=== PATIENT | male | born 1945 | race Caucasian/White ===

== ENCOUNTER 2016-09-21 12:59 | Emergency (ER) | payer MEDICARE, OTHER ==
[2016-09-21 13:35] VITALS: BP 120/68
--- NOTE | 2016-09-21 14:04 | UC ---
Knee Pain HPI - HPI Summary HPI Summary: patient was walking and twisted right knee last night. it is swollen and painful. he is able to weight bear. patient feels like it may give out on him, especially on the stairs. wore his neoprene brace in to the visit today. - History of Current Complaint Chief Complaint: UCLowerExtremity Stated Complaint: RIGHT KNEE PAIN Time Seen by Provider: 09/21/16 13:47 Hx Obtained From: Patient Onset/Duration: Sudden Onset, Lasting Hours Severity Initially: Moderate Severity Currently: Moderate Character: Aching, Burning Aggravating Factor(s): Movement, Prolonged Standing, Stairs Alleviating Factor(s): Rest Associated Signs And Symptoms: Positive: Swelling Able to Bear Weight: Yes - Allergies/Home Medications Allergies/Adverse Reactions: Allergies Allergy/AdvReac Type Severity Reaction Status Date / Time Niacin [From Niaspan] Allergy Unknown Unknown Verified 03/15/15 19:20 Reaction Details Sertraline [From Zoloft] Allergy Unknown Unknown Verified 03/15/15 19:20 Reaction Details BEE STINGS Allergy Severe Swelling Uncoded 03/15/15 19:20 TRAZADONE Allergy Unknown Unknown Uncoded 03/15/15 19:20 Reaction Details Home Medications: Home Medications Amlodipine Besylate [Norvasc 5 mg tab] 5 mg PO DAILY 09/21/16 [History Confirmed 09/21/16] Cholecalciferol [Vitamin D] 1,000 unit PO QPM 09/21/16 [History Confirmed ] Lisinopril [Zestril 5 MG-] 10 mg PO DAILY 09/21/16 [History Confirmed 09/21/16] Zinc [Elite Zinc] 15 mg PO QAM 09/21/16 [History Confirmed 09/21/16] PMH/Surg Hx/FS Hx/Imm Hx Previously Healthy: Yes Endocrine History Of: Reports: Diabetes, Thyroid Disease Cardiovascular History Of: Reports: Cardiac Disorders - CARDIAC CATHS, Hypertension Denies: Congestive Heart Failure Respiratory History Of: Denies: COPD, Asthma GI/ History Of: Reports: Gastroesophageal Reflux Denies: Ulcer, Renal Disease - Surgical History Surgical History: Yes Surgery Procedure, Year, and Place: hernia repair, cardiac; abdominal hernia. RIGHT SHOULDER Surgeries then REPLACEMNT 12/2012; - Family History Known Family History: Positive: Cardiac Disease, Hypertension - Social History Alcohol Use: Rare Substance Use Type: None Smoking Status (MU): Former Smoker Type: Smokeless Tobacco Amount Used/How Often: 1 can q 3 days Length of Time of Smoking/Using Tobacco: 48 yrs Have You Smoked in the Last Year: Yes - Immunization History Most Recent Influenza Vaccination: 2007 Most Recent Tetanus Shot: UTD Review of Systems Constitutional: Negative Skin: Negative Eyes: Negative ENT: Negative Respiratory: Negative Cardiovascular: Negative Gastrointestinal: Negative Genitourinary: Dysuria Motor: Negative Neurovascular: Negative Musculoskeletal: Arthralgia, Edema, Myalgia Neurological: Negative Psychological: Negative All Other Systems Reviewed And Are Negative: Yes Physical Exam Triage Information Reviewed: Yes Appearance: Well-Appearing, Pain Distress, Obese Vital Signs: Initial Vital Signs Temp 98 F 09/21/16 13:25 Pulse 60 09/21/16 13:25 Resp 18 09/21/16 13:25 BP 120/68 09/21/16 13:25 Vital Signs Reviewed: Yes Eye Exam: Normal Eyes: Positive: Conjunctiva Clear ENT Exam: Normal ENT: Positive: Normal ENT inspection, Hearing grossly normal, Pharynx normal, TMs normal Dental Exam: Normal Neck exam: Normal Neck: Positive: Supple, Nontender, No Lymphadenopathy Respiratory Exam: Normal Respiratory: Positive: Chest non-tender, Lungs clear, Normal breath sounds Cardiovascular Exam: Normal Cardiovascular: Positive: RRR, No Murmur, Pulses Normal Abdominal Exam: Normal Abdomen Description: Positive: Nontender, No Organomegaly, Soft Bowel Sounds: Positive: Present Musculoskeletal: Positive: Strength Intact, ROM Intact, Edema @ - right knee Neurological Exam: Normal Neurological: Positive: Alert, Muscle Tone Normal Psychological Exam: Normal Skin Exam: Normal Knee Pain Course/Dx - Course Course Of Treatment: hx obtained, exam performed, medication reviewed, xray obtained neg for effusion or acute injury. offered crutches and walker for support, Recommend tylenol and RICE therapy follow up with preimary MD if symptoms persist. - Differential Dx/Diagnosis Differential Diagnosis/HQI/PQRI: Dislocation, Fracture (Closed), Patellofemoral Syndrome, Sprain, Strain Provider Diagnoses: hamstring strain Discharge - Discharge Plan Condition: Stable Disposition: HOME Patient Education Materials: Muscle Strain (ED) Additional Instructions: Rest, Ice your knee, Compress it with the neoprene sleeve and elevated it at rest. Tylenol as needed for pain. if not improving over the week, follow up with your medical provider.
--- NOTE | 2016-09-21 14:18 | RAD ---
HISTORY: Twisting injury, swelling COMPARISONS: None VIEWS: 4, Frontal, lateral, axial, and oblique views of the right knee FINDINGS: BONE DENSITY: Normal. BONES: There is no displaced fracture. JOINTS: There is no arthropathy. There is no suprapatellar joint effusion or lipohemarthrosis. ALIGNMENT: There is no dislocation. SOFT TISSUES: Unremarkable. OTHER FINDINGS: None. IMPRESSION: NO ACUTE OSSEOUS INJURY. IF SYMPTOMS PERSIST, RECOMMEND REPEAT IMAGING.
== END 2016-09-21 14:40 | disposition home or self-care (01) ==
LOC: UCCORT 12:59
DX: S76.111A Strain of right quadriceps muscle, fascia and tendon, initial encounter (principal); X50.1XXA Overexertion from prolonged static or awkward postures, initial encounter; Y93.01 Activity, walking, marching and hiking; Y92.9 Unspecified place or not applicable; I10 Essential (primary) hypertension; E66.9 Obesity, unspecified; Z87.891 Personal history of nicotine dependence
CPT/HCPCS: 99212; G0463

== ENCOUNTER 2016-09-24 16:09 | Emergency (ER) | payer MEDICARE, OTHER ==
--- NOTE | 2016-09-24 18:16 | ED ---
Lower Extremity - HPI Summary HPI Summary: 71M presents with right knee pain for a week. Was seen at urgent care and had normal xray at the beginning of this week and told has sprain. initially pain while walking believes possible twisted knee but did not fall. Has been able to walk on the knee but states has notice some clicking and popping when walks. States that knee occasionally gives out. Pain is located on medial aspect of knee. He has been taking ibuprofen for the pain. He states that he has been using a brace on the knee and that it has helped. He has not been using his crutches. - History of Current Complaint Chief Complaint: EDExtremityLower Stated Complaint: RT KNEE PAIN Time Seen by Provider: 09/24/16 17:31 Pain Intensity: 7 - Allergies/Home Medications Allergies/Adverse Reactions: Allergies Allergy/AdvReac Type Severity Reaction Status Date / Time Niacin [From Niaspan] Allergy Unknown Unknown Verified 03/15/15 19:20 Reaction Details Sertraline [From Zoloft] Allergy Unknown Unknown Verified 03/15/15 19:20 Reaction Details BEE STINGS Allergy Severe Swelling Uncoded 03/15/15 19:20 TRAZADONE Allergy Unknown Unknown Uncoded 03/15/15 19:20 Reaction Details PMH/Surg Hx/FS Hx/Imm Hx Endocrine/Hematology History: Reports: Hx Diabetes, Hx Thyroid Disease Denies: Hx Systemic Lupus Erythematosus, Hx Sickle Cell Disease Cardiovascular History: Reports: Hx Aneurysm - Thoracic aortic aneurysm, states is stable, Hx Hypercholesterolemia, Hx Hypertension Denies: Hx Congestive Heart Failure Respiratory History: Reports: Hx Sleep Apnea Denies: Hx Asthma, Hx Chronic Obstructive Pulmonary Disease (COPD), Other Respiratory Problems/Disorders GI History: Reports: Hx Gastroesophageal Reflux Disease Denies: Hx Ulcer History: Denies: Hx Dialysis, Hx Renal Disease, Other Problems/Disorders Musculoskeletal History: Reports: Hx Arthritis, Hx Tendonitis, Other Musculoskeletal History - Bilateral rotator cuff problems Denies: Hx Rheumatoid Arthritis Sensory History: Reports: Hx Contacts or Glasses - GLASSES, Hx Hearing Aid - BILATERAL EARS Opthamlomology History: Reports: Hx Contacts or Glasses - GLASSES Neurological History: Denies: Other Neuro Impairments/Disorders Psychiatric History: Reports: Hx Post Traumatic Stress Disorder - Cancer History Hx Chemotherapy: No - Surgical History Surgery Procedure, Year, and Place: hernia repair, cardiac; abdominal hernia. RIGHT SHOULDER Surgeries then REPLACEMNT 12/2012; Hx Anesthesia Reactions: No Infectious Disease History: No Infectious Disease History: Denies: Hx Hepatitis, Hx Human Immunodeficiency Virus (HIV), Traveled Outside the [place] in Last 30 Days - Family History Known Family History: Positive: Cardiac Disease, Hypertension - Social History Alcohol Use: Rare Substance Use Type: Reports: None Smoking Status (MU): Former Smoker Type: Smokeless Tobacco Amount Used/How Often: 1 can q 3 days Length of Time of Smoking/Using Tobacco: 48 yrs Have You Smoked in the Last Year: Yes Review of Systems Negative: Fever Negative: Chest Pain Negative: Shortness Of Breath Positive: Myalgia - right knee pain All Other Systems Reviewed And Are Negative: Yes Physical Exam Triage Information Reviewed: Yes Vital Signs On Initial Exam: Initial Vitals Temp Pulse Resp BP Pulse Ox 97.3 F 65 16 136/72 100 09/24/16 16:11 09/24/16 16:11 09/24/16 16:11 09/24/16 16:11 09/24/16 16:11 Vital Signs Reviewed: Yes Appearance: Positive: Well-Appearing Skin: Positive: Warm, Dry Head/Face: Positive: Normal Head/Face Inspection Eyes: Positive: Normal, Conjunctiva Clear Respiratory/Lung Sounds: Positive: Clear to Auscultation, Breath Sounds Present Cardiovascular: Positive: Normal, RRR Musculoskeletal: Positive: Limited @ - right knee due to pain, Other - good pulses, neg anterior drawer, unable to full perform Anna due to patient discomfort, tender over medial aspect of knee, mild edema with ballotment test Diagnostics - Vital Signs Vital Signs Temp Pulse Resp BP Pulse Ox 09/24/16 16:11 97.3 F 65 16 136/72 100 - Laboratory Lab Statement: Any lab studies that have been ordered have been reviewed, and results considered in the medical decision making process. Lower Extremity Course/Dx - Course Course Of Treatment: 71M presents with right knee pain for a week. states that though injured in when walking. has been taking ibuprofen but states has not been getting any better and has been notice any increase in clicking in the joint. has pain over medial aspect of knee and is tender there. postive ballotment. on exam unable to full complete anna due to limitation with pain. will have follow up with ortho for potential menscial injury. told to use cane to get around and keep brace that already has on area. patient understands and agrees with plan - Diagnoses Differential Diagnosis/HQI/PQRI: Positive: Fracture (Closed), Sprain, Strain Provider Diagnoses: Right knee pain Discharge - Discharge Plan Condition: Good Disposition: HOME Patient Education Materials: Knee Pain (ED) Referrals: bAa Avitia MD [Primary Care Provider] - Maxine Dumont MD [Medical Doctor] - Additional Instructions: Place ice, rest, elevate Keep brace on area Use cane to get around Use tyenlol or ibuprofen every 6 hours for pain Follow up with ortho Return to ED if develop any new or worsening symptoms
[2016-09-24 18:48] VITALS: BP 113/75
== END 2016-09-24 18:47 | disposition home or self-care (01) ==
LOC: ED 16:09
DX: M25.561 Pain in right knee (principal)
CPT/HCPCS: 99281

== ENCOUNTER 2016-10-02 11:42 | Emergency (ER) | payer MEDICARE, OTHER ==
[2016-10-02 13:04] VITALS: BP 121/55
--- NOTE | 2016-10-02 14:00 | UC ---
Respiratory Complaint HPI - HPI Summary HPI Summary: Cough w/ white sputum, chest congestion, & wheezing x1 week. Wheezing in the chest that is worsening over the past 4 days. denies chest pain . [ End ] - History of Current Complaint Chief Complaint: UCRespiratory Stated Complaint: COUGH Time Seen by Provider: 10/02/16 13:40 Hx Obtained From: Patient Onset/Duration: Gradual Onset Timing: Constant Severity Initially: Mild Severity Currently: Moderate Character: Cough: Nonproductive Aggravating Factors: Nothing Alleviating Factors: Nothing Associated Signs And Symptoms: Positive: Wheezing, URI, Nasal Congestion, Sinus Discomfort - Risk Factors Pulmonary Embolism Risk Factors: Negative Cardiac Risk Factors: Negative Pseudomonas Risk Factors: Negative - Allergies/Home Medications Allergies/Adverse Reactions: Allergies Allergy/AdvReac Type Severity Reaction Status Date / Time Niacin [From Niaspan] Allergy Unknown Unknown Verified 10/02/16 12:56 Reaction Details Sertraline [From Zoloft] Allergy Unknown Unknown Verified 10/02/16 12:56 Reaction Details BEE STINGS Allergy Severe Swelling Uncoded 10/02/16 12:56 TRAZADONE Allergy Unknown Unknown Uncoded 10/02/16 12:56 Reaction Details Home Medications: Home Medications Chlorpheniramine-Phenylephrine [Coricidin D Cold/Flu/Sinu 2-5-325 mg] 1 tab PO Q6H PRN 10/02/16 [History Confirmed 10/02/16] guaiFENesin ER TAB [Mucinex*] 600 mg PO BID 10/02/16 [History Confirmed 10/02/16 ] PMH/Surg Hx/FS Hx/Imm Hx Previously Healthy: Yes Endocrine History Of: Reports: Diabetes, Thyroid Disease Cardiovascular History Of: Reports: Cardiac Disorders - CARDIAC CATHS, Hypertension Denies: Congestive Heart Failure Respiratory History Of: Denies: COPD, Asthma GI/ History Of: Reports: Gastroesophageal Reflux Denies: Ulcer, Renal Disease Cancer History Of: Denies: Lung Cancer - Surgical History Surgical History: Yes Surgery Procedure, Year, and Place: hernia repair, cardiac; abdominal hernia. 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 Lives: With Family Alcohol Use: Rare Substance Use Type: None Smoking Status (MU): Former Smoker Type: Smokeless Tobacco Amount Used/How Often: 1 can q 3 days Length of Time of Smoking/Using Tobacco: 48 yrs Have You Smoked in the Last Year: Yes - Immunization History Most Recent Influenza Vaccination: 2007 Most Recent Tetanus Shot: UTD Review of Systems Constitutional: Fatigue Skin: Negative Eyes: Negative ENT: Negative Respiratory: Shortness Of Breath, Cough Cardiovascular: Negative Gastrointestinal: Negative Genitourinary: Negative Motor: Negative Neurovascular: Negative Musculoskeletal: Negative Neurological: Negative Psychological: Negative All Other Systems Reviewed And Are Negative: Yes Physical Exam Triage Information Reviewed: Yes Appearance: Well-Appearing, No Pain Distress, Well-Nourished Vital Signs: Initial Vital Signs Temp 98.0 F 10/02/16 12:59 Pulse 60 10/02/16 12:59 Resp 18 10/02/16 12:59 BP 121/55 10/02/16 12:59 Pulse Ox 99 10/02/16 12:59 Eye Exam: Normal ENT Exam: Normal Dental Exam: Normal Neck exam: Normal Neck: Positive: 1 Respiratory Exam: Normal Respiratory: Positive: Chest non-tender, Wheezing - Left lower lung with exhalation Cardiovascular Exam: Normal Musculoskeletal Exam: Normal Neurological Exam: Normal Psychological Exam: Normal Skin Exam: Normal UC Diagnostic Evaluation - Laboratory O2 Sat by Pulse Oximetry: 99 Respiratory Course/Dx - Course Course Of Treatment: Bronchitis, concern if not treated may become pneumonia. start augmentin, aware of SE with this medication . - Differential Dx/Diagnosis Differential Diagnosis/HQI/PQRI: Bronchitis, Influenza, Lower Resp Infection, Sinusitis Provider Diagnoses: Bronchitis Discharge - Discharge Plan Condition: Good Disposition: HOME Prescriptions: Albuterol Sulfate [Proair Respiclick] 108 mcg IN Q6HR PRN #1 aer PRN Reason: Wheezing Amoxicillin/Clavulanate TAB* [Augmentin TAB 875*] 875 mg PO BID #20 tab Benzonatate [Benzonatate 200 MG CAP] 200 mg PO TID PRN #20 cap PRN Reason: Cough Patient Education Materials: Acute Bronchitis (ED) Referrals: Aba Avitia MD [Primary Care Provider] - 3 Days
== END 2016-10-02 14:11 | disposition home or self-care (01) ==
LOC: UCCORT 11:42
DX: J40 Bronchitis, not specified as acute or chronic (principal); E07.9 Disorder of thyroid, unspecified; I10 Essential (primary) hypertension; Z95.5 Presence of coronary angioplasty implant and graft; K21.9 Gastro-esophageal reflux disease without esophagitis; Z96.611 Presence of right artificial shoulder joint; Z87.891 Personal history of nicotine dependence
CPT/HCPCS: 99212; G0463

== ENCOUNTER 2016-11-03 05:55 | Day surgery (SDC) | payer MEDICARE, OTHER ==
--- NOTE | 2016-10-31 20:36 | HP ---
HISTORY AND PHYSICAL: DATE OF ADMISSION/SURGERY: 11/03/16 ATTENDING PHYSICIAN: Dr. Bailey (DICTATED BY JAY CANCINO) PROCEDURE: Right knee arthroscopy with partial meniscectomy, possible chondroplasty, possible synovectomy. CHIEF COMPLAINT: Right knee pain. HISTORY OF PRESENT ILLNESS: Mr. Talavera is a 71-year-old gentleman with complaints of right knee pain which he injured over a month ago. He has failed conservative management and an MRI of the right knee showed a tear of the posterior horn and body of the medial meniscus, and he has elected to proceed with right knee arthroscopy which is scheduled for 11/03/16. PAST MEDICAL HISTORY: Thoracic aortic aneurysm, high cholesterol, hypertension , diabetes, hypothyroidism and sleep apnea. PAST SURGICAL HISTORY: Right carpal tunnel release, bilateral rotator cuff repairs, hernia repair, right total shoulder and heart catheterization. CURRENT MEDICATIONS: 1. Lisinopril. 2. Omeprazole. 3. Amlodipine. 4. Losartan. 5. Prazosin. 6. Tamoxifen. 7. Atorvastatin. 8. Levothyroxine. 9. Januvia. 10. Zinc. 11. Metformin. 12. Vitamin C. 13. Multivitamin. 14. Vitamin D3. ALLERGIES: To TRAZODONE, NIASPAN, ZOLOFT and BEES. FAMILY HISTORY: Heart disease, diabetes. prostate and colon cancer. SOCIAL HISTORY: This 71-year-old gentleman lives with his . He chews tobacco today. He uses occasional alcohol. REVIEW OF SYSTEMS: A complete 14-point review of systems was reviewed with the patient and was positive for hypothyroidism and diabetes. Negative for anesthesia problems, history of DVT, PE, hepatitis C, HIV or bleeding disorders. PHYSICAL EXAMINATION GENERAL: He is a 71-year-old obese male. He is in no acute distress. VITAL SIGNS: He stands 6 feet tall, weighs 245 pounds. Blood pressure 130/68, his heart rate is 64. HEENT: Normocephalic, atraumatic. NECK: Supple. No palpable lymph nodes. PULMONARY: Lungs are clear to auscultation bilaterally. CARDIO: Regular rate and rhythm. ABDOMEN: Soft, nontender, nondistended. MUSCULOSKELETAL: Right lower extremity skin is intact. No open wounds or abrasions. There is a mild effusion. There is some tenderness over the medial joint line, positive Apley's, positive Kimberly's, negative Sohan's. No varus or valgus instability. 10 to 100 degrees flexion distally. He is neurovascularly intact. ASSESSMENT AND PLAN: Mr. Talavera is a 71-year-old gentleman with complaints of right knee pain secondary to a medial meniscus tear. He has elected to proceed with the right knee arthroscopy with partial medial meniscectomy, possible chondroplasty, possible synovectomy. The surgery is scheduled for 11/03/[address] Bailey. He will follow up with Dr. Bailey 10 to 14 days after the surgery. JAY CANCINO [id number]/[facility] #: [id number] MTDD
[2016-11-03] MEDS ORDERED: Buffered Lidocaine 1% SYR 3ML* 3 ML/SYR SYRINGE INTRADERM ONE (06:00)
[2016-11-03] MEDS ORDERED: Famotidine IV* 10 MG/ML 2 ML (20 mg) IV ONE (06:00)
[2016-11-03] MEDS ORDERED: ceFAZolin 2 GM PREMIX(*) 2 GM/50 ML BAG IVPB ONE (06:08)
[2016-11-03] MEDS ORDERED: Famotidine IV* 10 MG/ML 2 ML (20 mg) ONE (06:08)
[2016-11-03] MEDS ORDERED: methylPREDNISolone ACETATE 80* 80 MG/ML 1 ML VIAL ONE (06:57)
[2016-11-03] MEDS ORDERED: EPINEPHrine AMP 1 MG/ML ONE ×2 (06:57)
[2016-11-03] MEDS ORDERED: Bupivacaine 0.25% SDV* 30 ML ONE (06:57)
[2016-11-03] MEDS ORDERED: Bupivacaine 0.5% SDV PF* 30 ML VIAL ONE (06:59)
[2016-11-03] MEDS ORDERED: fentaNYL* 50 MCG/ML 2 ML VIAL (100 MCG VIAL) ONE (07:16)
[2016-11-03] MEDS ORDERED: Midazolam* 1 MG/ML 5 ML VIAL (5 MG) ONE (07:17)
[2016-11-03] MEDS ORDERED: Chloroprocaine 2%* 20 ML VIAL ONE (07:17)
[2016-11-03] MEDS ORDERED: Midazolam* 1 MG/ML 2 ML VIAL (2 MG) ONE (07:57)
[2016-11-03] MEDS ORDERED: Phenylephrine IV* 40 MCG/ML 10 ML SYRINGE ONE (08:01)
[2016-11-03] MEDS ORDERED: oxyCODONE/Acetamin 5/325 MG* TAB PO PRN (08:52)
[2016-11-03] MEDS ORDERED: Ondansetron INJ* 2 MG/ML VIAL IV PRN (08:52)
[2016-11-03] MEDS ORDERED: HYDROcodone/ACETAMIN 5-325 MG* 1 TAB PO PRN (08:52)
[2016-11-03] MEDS ORDERED: Ketorolac INJ* 30 MG/ML 1 ML VIAL IV PRN (08:52)
[2016-11-03] MEDS ORDERED: fentaNYL* 50 MCG/ML 2 ML VIAL (100 MCG VIAL) IV PRN (08:52)
[2016-11-03] MEDS ORDERED: Ketorolac INJ* 30 MG/ML 1 ML VIAL ONE (09:03)
[2016-11-03 10:07] VITALS: BP 123/70
--- NOTE | 2016-11-04 08:28 | OP ---
DATE OF OPERATION: 11/03/16 [facility] DATE OF : 47 SURGEON: Tamela Bailey MD WIRE HARNESS ASSEMBLER: JAY Arcos. This assistant pastry chef was utilized throughout all portions of the procedure. ANESTHESIOLOGIST: Dr. Efrain Jimenez ANESTHESIA: Spinal. PRE-OP DIAGNOSIS: Right knee medial meniscal tear, osteoarthritis. POST-OP DIAGNOSES: Right knee medial meniscal tear, lateral meniscal tear, severe arthritis of the medial compartment. OPERATIVE PROCEDURES: Right knee arthroscopy with partial medial meniscectomy, partial lateral meniscectomy, medial compartment chondroplasty. COMPLICATIONS: None. ESTIMATED BLOOD LOSS: Less than 25 cc. SPECIMENS: None. BRIEF HISTORY/INDICATION: Mr. Talavera is a 71-year-old gentleman with one year of increasingly severe right knee pain. Plain radiograph showed some mild-to- moderate degenerative changes in the knee joint. His physical exam and history were consistent with medial meniscal tear, which confirmed on MRI. The patient failed conservative treatment and wished to proceed with right knee arthroscopy. He understood the risks of surgery included, but were not limited to bleeding, infection, damage to nearby structures, continued pain, need for further surgery, stroke, heart attack, blood clot and . He wished to proceed. INTRAOPERATIVE FINDINGS: Intraoperatively, the patient was noted to have complex type tear of the posterior one half of the medial meniscus. This involved the white-white and white-red zones. Also had a radial type tear of the lateral meniscus in the mid portion. The patient was noted to have grade 3 and 4 Outerbridge cartilage changes in both patellofemoral and medial compartments. There was exposed subchondral bone and cartilage flapping along the medial femoral condyle. DESCRIPTION OF PROCEDURE: Mr. Talavera was identified in the preanesthesia unit. His right lower extremity was marked as the correct operative site. Informed consent was signed and placed in the chart. The patient was taken to the operating room and placed under spinal anesthesia. The right lower extremity was prepped and draped in the usual sterile fashion. Preop time-out was made to correctly identify the patient's side and site. Appropriate perioperative antibiotics were given within 1 hour of incision. A standard anterolateral portal incision was made with a 15-blade and carried down to the capsule. Trocar was introduced. As soon as the light and water sources were turned on, there was immediate visualization of the suprapatellar pouch. A tour of the knee joint was performed. Suprapatellar pouch had no obvious abnormality other than some small cartilage fragments loose in the joint fluid. Patellofemoral compartment showed grade 3 and 4 Outerbridge cartilage changes with exposed subchondral bone along the medial and lateral facets. Medial gutter showed no obvious loose bodies or plica. The medial compartment showed an obvious complex type tear of the posterior 50% of the medial meniscus. There was grade 3 and 4 Outerbridge cartilage changes in the medial compartment with cartilage flapping and an exposed subchondral bone along the medial femoral condyle. ACL and PCL appeared to be intact. The knee was placed in the [id number] position. Lateral compartment showed a radial type tear in the midportion of the lateral meniscus as well as some mild degenerative changes. Lateral gutter showed no obvious abnormality. Under direct visualization, a medial portal incision was made. Probe was introduced and a second tour of the knee joint was performed. No additional findings were noted. The shaver and radiofrequency ablation wand were used to excise some synovitis from the anterior joint line, which helped with visualization significantly. A straight biter and shaver were used to perform partial medial meniscectomy until a smooth border was obtained in the white-red zone of the medial meniscus. Next, radiofrequency ablation wand was used to smooth the cartilage flapping along the medial femoral condyle. The knee was placed in the [id number] position. The straight bitter and shaver were used to perform partial lateral meniscectomy. A smooth border was obtained in a white-red zone. Probing of both menisci showed no further tearing or displaced fragments. The knee was copiously irrigated and any small cartilage fragments were removed from the joint fluid. All instruments were carefully removed. Incisions were closed using 3-0 nylon suture. Intraarticular injection of 80 mg Depo-Medrol and 6 cc 0.25% Marcaine was placed in the knee joint. Incisions were covered with Xeroform, 4x4s, and Webril. Berto wrap and cold pack were placed over this. The patient's anesthesia was reversed without difficulty. He was taken to the PACU in stable condition. Intended weightbearing will be weightbearing as tolerated. Intended DVT prophylaxis will be aspirin. [id number]/[facility] #: [id number] [facility]
== END 2016-11-03 09:59 | disposition home or self-care (01) ==
LOC: OR 05:55
PROVIDERS: ATTEND Orthopaedic Surgery Adult Reconstructive Orthopaedic Surgery
DX: M23.203 Derangement of unspecified medial meniscus due to old tear or injury, right knee (principal); M23.200 Derangement of unspecified lateral meniscus due to old tear or injury, right knee; M13.861 Other specified arthritis, right knee; E11.9 Type 2 diabetes mellitus without complications; Z79.84 Long term (current) use of oral hypoglycemic drugs; I10 Essential (primary) hypertension; E03.9 Hypothyroidism, unspecified; I45.10 Unspecified right bundle-branch block; I71.2 Thoracic aortic aneurysm, without rupture; G47.33 Obstructive sleep apnea (adult) (pediatric)
CPT/HCPCS: J0171; J0690; J1040; J1885; J2250; J2400; J3010

== ENCOUNTER 2017-02-28 19:38 | Emergency (ER) | payer MEDICARE, OTHER ==
[2017-02-28 19:52] VITALS: BP 143/72
[2017-02-28] MEDS ORDERED: traMADol TAB* 50 MG PO ONE ×2 (20:54→21:23)
[2017-02-28] MEDS ORDERED: Ketorolac INJ* 60 MG/2 ML VIAL IM ONE (20:54)
[2017-02-28] MEDS ORDERED: Cephalexin CAP* 500 MG PO ONE (21:20)
--- NOTE | 2017-03-05 12:03 | ED ---
Megan Carter Alfonso, scribed for Rajan Cross MD on 02/28/17 at 2052 . Lower Extremity - HPI Summary HPI Summary: This patient is a 71 year old M presenting to [facility] accompanied by with a chief complaint of right knee pain since one week ago. He states It looks like it has fluid in it. The patient rates the pain 6/10 in severity. Symptoms aggravated by standing. Symptoms alleviated by nothing. Patient reports knee swelling and insomnia. Patient denies fever, chills, and diaphoresis. Patient denies recent trauma. He had surgery on Nov [address] Bailey at [facility] for a torn meniscus. He reports an appointment with Dr. Bailey (surgeon) for 03/08/17. PMHx includes DM2, HTN, and HLD. - History of Current Complaint Chief Complaint: EDExtremityLower Stated Complaint: RT KNEE PAIN Time Seen by Provider: 02/28/17 20:42 Hx Obtained From: Patient Onset of Pain: Prior to Arrival Onset/Duration: Weeks - 1 Severity Initially: Moderate Severity Currently: Moderate Pain Intensity: 6 Pain Scale Used: 0-10 Numeric Timing: Constant Location: Is Discrete @ - right knee Associated Signs And Symptoms: Positive: Swelling, Knee Pain. Negative: Fever Aggravating Factor(s): Standing Alleviating Factor(s): Nothing Able to Bear Weight: Yes - Allergies/Home Medications Allergies/Adverse Reactions: Allergies Allergy/AdvReac Type Severity Reaction Status Date / Time Niacin [From Niaspan] Allergy Unknown Unknown Verified 02/28/17 19:52 Reaction Details Sertraline [From Zoloft] Allergy Unknown DOUBLE Verified 02/28/17 19:52 VISION BEE STINGS Allergy Severe Swelling Uncoded 02/28/17 19:52 TRAZADONE Allergy Unknown Unknown Uncoded 02/28/17 19:52 Reaction Details PMH/Surg Hx/FS Hx/Imm Hx Endocrine/Hematology History: Reports: Hx Diabetes - TYPE II controlled with medication, Hx Thyroid Disease - HYPOTHYROID Denies: Hx Systemic Lupus Erythematosus, Hx Sickle Cell Disease Cardiovascular History: Reports: Hx Aneurysm - Thoracic aortic aneurysm, states is stable, Hx Hypercholesterolemia, Hx Hypertension - controlled with medication , Other Cardiovascular Problems/Disorders - aortic aneurysm 2010 Denies: Hx Congestive Heart Failure, Hx Pacemaker/ICD Respiratory History: Reports: Hx Sleep Apnea Denies: Hx Asthma, Hx Chronic Obstructive Pulmonary Disease (COPD), Hx Lung Cancer, Other Respiratory Problems/Disorders GI History: Reports: Hx Gastroesophageal Reflux Disease, Hx Hiatal Hernia - RESOLVED Denies: Hx Ulcer History: Denies: Hx Dialysis, Hx Renal Disease, Other Problems/Disorders Musculoskeletal History: Reports: Hx Arthritis - OSTEO GENERALIZED, Hx Tendonitis, Other Musculoskeletal History - Bilateral rotator cuff problems Denies: Hx Rheumatoid Arthritis Sensory History: Reports: Hx Contacts or Glasses - WEARS GLASSES, Hx Hearing Aid - BI-LAT Opthamlomology History: Reports: Hx Contacts or Glasses - WEARS GLASSES Neurological History: Denies: Other Neuro Impairments/Disorders Psychiatric History: Reports: Hx Anxiety - controlled with medication, Hx Depression - controlled with medication, Hx Post Traumatic Stress Disorder Denies: Hx Panic Disorder - Cancer History Hx Chemotherapy: No - Surgical History Surgery Procedure, Year, and Place: CARDIAC CATH X 2 - NO STENT LATE TO DERECK , ALSO IN 1999. abdominal hernia 1979. RIGHT SHOULDER Surgeries then REPLACEMNT 12/2012 AND LEFT SHOULDER - RCT. 2 TOTAL SURGERIES LEFT SHOULDER 3 FOR THE RIGHT Hx Anesthesia Reactions: No Infectious Disease History: No Infectious Disease History: Denies: Hx Hepatitis, Hx Human Immunodeficiency Virus (HIV), Traveled Outside the [place] in Last 30 Days - Family History Known Family History: Positive: Cardiac Disease, Hypertension - Social History Alcohol Use: Rare Alcohol Amount: 1 GLASS WINE NO MORE THAN ONCE MONTH Substance Use Type: Reports: None Smoking Status (MU): Light Every Day Tobacco Smoker Type: Smokeless Tobacco Amount Used/How Often: DOES NOT SMOKE CIGG, CHEWS TOBACCO DAILY FOR PAST 55+ YRS Length of Time of Smoking/Using Tobacco: 48 yrs Have You Smoked in the Last Year: Yes Review of Systems Negative: Fever, Chills, Skin Diaphoresis Negative: Erythema Negative: Sore Throat Negative: Chest Pain Negative: Shortness Of Breath, Cough Negative: Abdominal Pain, Vomiting, Nausea Negative: dysuria, hematuria Positive: Edema - Right knee, Other - Right knee pain. Negative: Myalgia Negative: Rash Neurological: Other - Insomnia; Negative dizziness. All Other Systems Reviewed And Are Negative: Yes Physical Exam Triage Information Reviewed: Yes Vital Signs On Initial Exam: Initial Vitals Temp Pulse Resp BP Pulse Ox 97.2 F 70 18 143/72 97 02/28/17 19:49 02/28/17 19:49 02/28/17 19:49 02/28/17 19:49 02/28/17 19:49 Vital Signs Reviewed: Yes Appearance: Positive: Well-Appearing, No Pain Distress, Well-Nourished Skin: Positive: Warm, Dry Head/Face: Positive: Normal Head/Face Inspection Eyes: Negative: Conjunctiva Clear ENT: Positive: Normal ENT inspection Neck: Positive: Other: - Musculoskeletal ROM normal neck. (-) JVD, (-) Stridor, (-) Tracheal deviation Lymph: (-) Cervical adenopathy Respiratory/Lung Sounds: Positive: Other - Effort normal. (-) Respiratory distress, (-) Wheezes, (-) Rales Cardiovascular: Positive: Other - Rhythm regular, rate normal, Heart sounds normal; Intact distal pulses; The pedal pulses are 2+ and symmetric. Radial pulses are 2+ and symmetric. (-) Murmur Abdomen Description: Positive: Other: - Soft, (-) Tenderness, (-) Distension, (- ) Guarding, (-) Rebound Musculoskeletal: Positive: Other - Minimal lateral effusion over the meniscus repair incision possibly related to seroma. No trauma. No suspicion for pathologic fracture. No erythema. No significant knee effusion. ROM intact. Neurological: Positive: Alert, Oriented to Person Place, Time Psychiatric: Positive: Affect/Mood Appropriate Diagnostics - Vital Signs Vital Signs Temp Pulse Resp BP Pulse Ox 02/28/17 19:53 97.2 F 70 18 143/72 97 02/28/17 19:49 97.2 F 70 18 143/72 97 - Laboratory Lab Statement: Any lab studies that have been ordered have been reviewed, and results considered in the medical decision making process. Lower Extremity Course/Dx - Course Assessment/Plan: This patient is a 71 year old M presenting to [facility] accompanied by with a chief complaint of right knee pain since one week ago. He states It looks like it has fluid in it. The patient rates the pain 6/ 10 in severity. Symptoms aggravated by standing. Symptoms alleviated by nothing. Patient reports knee swelling and insomnia. Patient denies fever, chills, and diaphoresis. Patient denies recent trauma. He had surgery on Nov [address] Bailey at [facility] for a torn meniscus. He reports an appointment with Dr. Bailey (surgeon) for 03/08/17. PMHx includes DM2, HTN, and HLD. Consulted Dr. Orellana (orthopedics) who recommended, Keflex, warm soaks, and for the patient to call the office tomorrow to schedule an earlier appointment. Patient will be discharged with prescription and follow up from Dr. Orellana. The patient is agreeable with this plan. - Diagnoses Provider Diagnoses: Swelling of right knee joint, No significant effusion, no suspicion for septic arthritis - Physician Notifications Discussed Care Of Patient With: Clark Orellana Time Discussed With Above Provider: 21:19 Instructed by Provider To: Other - Consulted Dr. Orellana (orthopedics) who recommended, Keflex, warm soaks, and for the patient to call the office tomorrow to schedule an earlier appointment. Discharge - Discharge Plan Condition: Stable Disposition: HOME Prescriptions: Cephalexin CAP* [Keflex CAP*] 500 mg PO QID #40 cap traMADol TAB* [Ultram*] 50 mg PO Q6HR PRN #12 tab MDD 4 PRN Reason: Pain Scale 6-10 Patient Education Materials: Swollen Knee Joint (ED) Referrals: Aba Avitia MD [Primary Care Provider] - Clark Orellana MD [Medical Doctor] - 1 Day (CALL THE OFFICE TOMORROW MORNING. ) Additional Instructions: RETURN TO THE EMERGENCY DEPARTMENT FOR CHANGING OR WORSENING SYMPTOMS. GIVE THE RIGHT KNEE WARM SOAKS. The documentation as recorded by the Megan argueta Alfonso accurately reflects the service I personally performed and the decisions made by me, Rajan Cross MD.
== END 2017-02-28 21:54 | disposition home or self-care (01) ==
LOC: ED 19:38
DX: M25.561 Pain in right knee (principal); M25.461 Effusion, right knee
CPT/HCPCS: 96372; 99282; A9270-GY; J1885

== ENCOUNTER 2017-08-26 12:02 | Emergency (ER) | payer MEDICARE, OTHER ==
--- OUTSIDE RECORDS SUMMARY | 2017-08-26 14:33 | XMS REPORT ---
:1945 External Reference #:[id number] Author Organization [email or web address] Address [address] [address] Phone [phone] Care Team Providers Name Role Phone Aba Avitia MD Primary Care Physician Unavailable Payers Type Date Identification Numbers Payment Provider Subscriber Medicare Primary Effective: Policy Number: Medicare Faisal Patterson 1997 [id number] PayID: [id number] [address] [place] [address] [place] Part B Effective: 2003 Policy Number: Inc. Abdulaziz Faisal Patterson [id number] Expires: 2014 Group Number: [id number] [id number] PayID: [place] [address] Commercial Policy Number: [id number] [employer] Faisal Aaron Ilan Group Number: [id number] [address] PayID: [place] [address] Problems Date Description Provider Status Onset: 09/15/2011 Aneurysm of thoracic aorta Lance Street M.D. Active Onset: 09/15/2011 Chronic diastolic heart failure Lance Street M.D. Active Onset: 09/15/2011 Sinus node dysfunction Lance Street M.D. Active Onset: 09/15/[address]mia Lance Street M.D. Active Onset: 09/19/[address] M.D. Active Onset: 02/09/2012 Carpal tunnel syndrome Lance Street M.D. Active Onset: 02/09/[address] M.D. Active Onset: 12/12/2012 Disorder of joint of shoulder region Lance Street M.D. Active Onset: 06/17/2013 Benign essential hypertension Lance Street M.D. Active Onset: 06/17/[address] M.D. Active Onset: 09/26/2016 Localized, primary osteoarthritis Tamela Bailey M.D. Active Social History Type Date Description Comments Marital Status Lives With Occupation Retired Cigarette Use Former Cigarette Smoker ETOH Use Drinks Alcoholic Beverages Rarely Smoking Patient is a former smoker Currently chews tobacco Recreational Drug Use Denies Drug Use Daily Caffeine Consumes on average 1 cup of regular coffee per day Exercise Type/Frequency Exercises rarely Allergies, Adverse Reactions, Alerts Date Description Reaction Status Severity Comments 09/02/2003 Bee Stings active 12/10/2003 Niaspan active flushing 05/29/2014 Zoloft active Moderate 04/29/2015 Trazodone active Medications Medication Date Status Form Strength Qnty SIG Indications Ordering Provider [place] 05/11/ Active Tablets 5-325mg 60tab 1 tabs by Tamela 2016 s mouth every Leo, 12 hours M.D. Glimepiride 04/21/ Active Tablets 1mg Take One 2016 Tablet By MD Aba Mouth Two Times A Day Amlodipine 06/15/ Active Tablets 5mg 90tab 1 by mouth Lance Besylate 2015 s every day [address]ha Street M.D. Venlafaxine HCL 06/13/ Active Tablets 37.5mg 3 tabs by Unknown 2016 mouth daily Metformin HCL 05/28/ Active Tablets 500mg 60tab 2 by mouth Other 2014 s twice a day Ordering Provider Prazosin HCL 06/17/ Active Capsules 1mg 1 po hs Lance [address] M.D. Cpap 12/08/ Active Tablets qhs Lance [address] M.D. Levothyroxine / Active Tablets 137mcg 1 po qd Unknown Sodium 0000 before breakfast Januvia / Active Tablets 100mg 90tab 1 po qd Unknown 0000 s Omeprazole / Active Capsules 20mg 1 cap po Unknown [address] DR daily Multivitamins / Active Tablets 30tab 1 po qd Unknown 0000 s Ibuprofen / Active Tablets 200mg 100ta 3 tab po Unknown 0000 bs daily will take up to 6 tab daily as needed Vitamin D3 / Active Tablets 2000Unit 30tab 1 tablet by Unknown 0000 s mouth everyday Losartan / Active Tablets 100mg 1 by mouth Unknown Potassium 0000 every day Atorvastatin / Active Tablets 10mg 1 by mouth Unknown Calcium 0000 every day Vitamin C / Active Tablets 1000mg 1 tablet po Unknown 0000 daily ( last taken December 2016) Aspirin Ec / Active Tablets DR 81mg 1 by mouth Unknown 0000 every day ( Taking for 10-15 years) Percocet 11/03/ Hx Tablets 5-325mg 45tab 1-2 by Tamela 2016 - s mouth every Leo, 02/28/ 6 hours as M.D. 2016 needed pain Naproxen 09/26/ Hx Tablets 500mg 30tab 1 tablet M25.561 Tamela 2016 - s with food Leo, 02/28/ by mouth M.D. 2016 twice a day Amlodipine 05/16/ Hx Tablets 2.5mg 90tab 1 by mouth Lance Besylate 2015 - s every day F. 06/15/ Yenifer, 2015 M.D. Crestor 05/28/ Hx Tablets 20mg 1 by mouth Other 2013 - every day Ordering 05/29/ Provider 2013 Crestor 05/28/ Hx Tablets 10mg 1 by mouth Other 2013 - every day Ordering 04/28/ Provider 2015 Tramadol HCL 10/24/ Hx Tablets 50mg 40tab 1 tab every Rom 2013 - s 6 hours as Young, 10/24/ needed pain M.D. 2013 Naproxen 10/24/ Hx Tablets 500mg 60tab 1 tab by Rom 2013 - s mouth twice Young, 01/15/ a day. Take M.D. 2013 with food. Crestor 06/17/ Hx Tablets 10mg 1 by mouth Lance 2012 - every day F. 05/29/ Yenifer, 2013 M.D. Clonazepam 06/17/ Hx Tablets 1mg 1 tablet po Lance 2012 - Am, 2 F. 06/14/ tablet po Tasiauseflorin, 2016 PM M.D. Percocet 01/25/ Hx Tablets 5-325mg 15tab take 1 2012 - s tablet po , 03/18/ tid prn M.DEmma 2012 pain Keflex 01/25/ Hx Capsules 500mg 28cap 1 po qid x Rom2012 - s 7days Douglas, 01/25/ M.Maximus 2012 Bactrim DS 01/25/ Hx Tablets 800-160mg 14tab 1 po bid Rom 2012 - s for 7 days Douglas, 02/24/ MKeith 2013 Topiramate 12/12/ Hx Tablets 100mg 1 1/2 tabs Lance 2012 - at bedtime F. 10/22/ Yenifer, 2013 M.D. Vitamin C 12/12/ Hx Tablets 500mg 90tab 1 po qd Other 2012 - s Ordering 10/30/ Provider 2016 Miralax 12/12/ Hx Packet [id number] 1Mon 17 gm qd Other 2012 - prn Ordering 10/21/ Provider 2013 Torsemide 10/12/ Hx Tablets 10mg 1 po qd prn Lance 2009 - if wt F. 01/22/ >273 Yenifer, 2009 M.D. Torsemide 10/09/ Hx Tablets 20mg 1 po qd Lance 2009 - till 10/12 F. 10/12/ Yenifer, 2009 M.D. Torsemide 10/02/ Hx Tablets 10mg 60tab 4 po qd am Lance 2009 - s of 10/08/09 F. 10/09/ Yenifer, 2009 Jennifer Januvia 07/02/ Hx Tablets 50mg 90tab qd PO Lance 2008 - s F. 10/02/ Yenifer, 2009 M.Toya. Ambien 09/19/ Hx Tablets 10mg. 1 PO QHS Lance 2007 - prn F. 05/25/ Yenifer, 2008 M.D. Metformin HCL 09/19/ Hx Tablets 500mg 1/2 PO bid Lance 2007 - F. 07/02/ Yenifer, 2008 M.D. Omeprazole 03/23/ Hx Capsules 20mg 100ca 1 po qd Lance 2007 - ps F. 01/27/ Yenifer, 2010 M.D. Oxycodone-Apap 03/14/ Hx Tablets 5/325 2 bid Lance 2006 - F. 01/27/ Mauser, 2010 M.D. Metformin HCL 03/14/ Hx Tablets 500mg 1/5 PO bid Lance 2006 - . 09/19/ Mauser, 2007 M.D. Indomethacin 03/14/ Hx Capsules 25mg 90cap prn Lance 2006 - s F. 07/02/ Mauser, 2008 M.D. Nexium 03/14/ Hx Capsules 40mg 90cap 1 po qd Lance 2006 - DR s . 03/23/ Mauser, 2006 M.D. Zocor 11/14/ Hx Tablets 80mg 1 PO qd Lance 2006 - . 11/14/ user, 2006 M.D. Atenolol 11/08/ Hx Tablets 25mg 1/2 PO qd Lance 2006 - . 12/06/ Mauser, 2006 M.Toya. Crestor 08/30/ Hx Tablets 20mg 90tab 2 PO qd Lance 2006 - s 01/22/ Mauser, 2009 M.D. KCL 06/28/ Hx Tablets 20Meq 30tab 1 PO qd Lance 2006 - s . 12/06/ Mauser, 2006 M.Toya. Clonazepam 08/25/ Hx Tablets 1mg 1 po in am 2005 - and 1 in pm . 01/27/ user, 2010 M.D. Zocor 08/25/ Hx Tablets 20mg one q hs Lance 2005 - . 11/14/ Mauser, 2006 M.D. Risperdal 08/25/ Hx Tablets 1mg 30tab One QHS Lance 2005 - s . 09/19/ Mauser, 2007 M.D. Furosemide 08/25/ Hx Tablets 20mg 1 po qd Lance 2005 - . 08/03/ Mauser, 2009 M.Toya. Ambien 08/25/ Hx Tablets 5mg 30tab Take One Lance 2005 - s Tablet At F. 09/19/ Bedtime Mauser, 2007 M.D. Celexa 08/25/ Hx Tablets 40mg 30tab 2 qam Lance 2005 - s . 10/02/ Mauser, 2009 M.D. Wellbutrin SR 08/25/ Hx Tablets 150mg 60tab 2 qam Lance 2005 - s F. 01/22/ Mauser, 2009 M.D. Indomethacin 08/25/ Hx Capsules 50mg 1 po qd Lance 2005 - F. Mauser, 2006 M.D. Atenolol 08/25/ Hx Tablets 25mg 90tab 1 PO qd Lance 2005 - s F. 11/08/ Mauser, 2006 M.D. Oxycodone 12/08/ Hx Capsules 5mg 45cap one every Lance 2004 - s 4hrs prn F. 08/30/ Mauser, 2006 M.D. Zocor 12/08/ Hx Tablets 10mg 30tab one qhs Lance 2004 - s F. 08/25/ Mauser, 2005 M.D. Ambien 12/09/ Hx Tablets 10mg 30tab one qhs prn Lance 2003 - s sleep F. 12/08/ Mauser, 2004 M.D. KCL 10/23/ Hx Powder 40Meq 90uni 1 po qd Lance 2003 - ts F. 12/08/ Mauser, 2004 M.D. KCL 10/16/ Hx Capsules 20Meq 60cap 1 po qd Lance 2003 - s F. 10/23/ Mauser, 2003 take 40 M.D. meq 10/16,10/17, then 20 meq qd Niaspan 10/14/ Hx Tablets 1000mg 30tab 1 po q hs Lance Extended 2003 - s F. Release 12/09/ Mauser, 2003 M.D. Paxil 10/08/ Hx Tablets 40mg 1 po qd Lance 2003 - F. 12/08/ Mauser, 2004 M.D. Furosemide 10/08/ Hx Tablets 40mg 1 po qd Lance 2003 - F. 08/25/ Mauser, 2005 M.D. Bextra 10/08/ Hx Tablets 20mg 1 po qd prn Lance 2003 - F. 12/09/ Mauser, 2003 M.D. Sterling 3 Fish 15/ Hx Capsules 1 qd Lance Oil 2003 - F. 08/25/ Mauser, 2005 M.D. Nexium 10/08/ Hx Capsules 40mg 30cap 1 po qd Lance 2003 - s F. 12/09/ Mauser, 2003 M.D. Nitro-Dur 09/10/ Hx Patches 0.2mg/Hour 30uni 1 to chest Lance 2003 - ts wall qam F. 10/08/ off qpm Mauser, 2003 M.D. Niaspan 09/07/ Hx Capsules 500mg 30cap 1po qpm Lance 2003 - s F. 10/14/ Mauser, 2003 M.D. Atenolol 09/05/ Hx Tablets 25mg 30tab 1 po qod Lance 2003 - s F. 10/08/ Mauser, 2003 M.D. Move Free 09/01/ Hx Tablets 1200mg 30tab 2 po qd Lance 2003 - s F. 12/08/ user, 2004 M.D. Atenolol 09/01/ Hx Tablets 25mg 1 po qd Lance 2003 - F. 09/05/ user, 2003 M.D. Paxil 09/01/ Hx Tablets 40mg 90tab 1 po qd prn Lance 2003 - s F. 10/08/ Mauser, 2003 M.D. Sonata 09/01/ Hx Capsules 10mg 30cap one qhs prn Lance 2003 - s sleep F. 12/09/ user, 2003 M.D. Testosterone 09/01/ Hx Injection 2.5mg injection Lance 2003 - Injection one time / F. 08/30/ week Mauser, 2006 M.D. Gaviscon 09/01/ Hx Capsules 2 tablets Lance 2003 - prn F. 12/09/ user, 2003 M.D. Nitrolingual 09/01/ Hx Aerosol 0.4mg 1unit 1 PO qd prn Lance Pumpspray 2003 - s . 03/14/ Mauser, 2006 M.D. Furosemide 08/31/ Hx Tablets 40mg 30tab 1 po qd Lance 2003 - s F. 10/08/ Mauser, 2003 M.D. Atenolol 08/31/ Hx Tablets 50mg 90tab 1 po qd Lance 2003 - s F. 09/01/ Mauser, 2003 M.D. Bextra 08/31/ Hx Tablets 20mg 30tab 1 po qd Lance 2003 - s F. 10/08/ user, 2003 Jennifer Trazodone 08/31/ Hx Tablets 100mg 30tab one daily Lance 2003 - s at hs F. user, 2003 Jennifer Percocet 08/31/ Hx Tablets 10mg;325 1 po q6h Lance 2003 - mg prn . 12/08/ prescribed Arielr, [address] Rodriguez schreiber Paxil CR 08/31/ Hx Tablets 25mg 2 po qd Lance 2003 - . 10/08/ , 2003 Jennifer Buspirone 08/31/ Hx Tablets 15mg 30tab 1 po qd Lance 2003 - s . , 2005 Jennifer Levoxyl 08/31/ Hx Tablets 125mcg 30tab 1 PO qd Lance 2003 - s . r, 2009 Jennifer HCTZ 08/31/ Hx Tablets 25mg 30tab 1 po qd Lance 2003 - s . 12/08/ r, 2004 Jennifer Lipitor 08/31/ Hx Tablets 10mg 30tab 1 po qd Lance 2003 - s . user, 2004 Jennifer Vitamins 08/31/ Hx Caplets 30cap 1 po qd Lance Multiple 2003 s . , 2005 Jennifer Aspirin 08/31/ Hx Chewtabs 81mg 1 po qd Lance 2003 - . 08/25/ r, 2005 Jennifer Risperdal / Hx Tablets 1mg 1 PO qd Unknown - 2009 Zolpidem / Hx Tablets 10mg 30tab 1 tab po Unknown Tartrate - s qhs prn 2008 Amlodipine /00/ Hx Tablets 5mg 30tab 1 po qd Unknown Besylate 0000 - s 2011 Trazodone HCL /00/ Hx Tablets 50mg 30tab 1 po qhs Unknown 0000 - s 2009 Lasix / Hx Tablets 40mg 30tab 1 po qd Unknown 0000 - s 2009 Levothyroxine 00/00/ Hx Tablets .15mg 30tab 1 po qd Unknown Sodium - s 2009 Lasix 00/00/ Hx Tablets 60mg 1 po qd Unknown 2009 Topiramate 00/00/ Hx Tablets 200mg 1 po qhs Unknown 2012 Citalopram 00/00/ Hx Tablets 40mg 1 qam Unknown Hydrobromide 2010 Lasix 00/00/ Hx Tablets 40mg 1 po qd Unknown 2009 Minipress 00/00/ Hx Capsules 2mg 30cap 1 po at hs Unknown - s 2009 Sitagliptin 00/00/ Hx 100mg 1 po qd Unknown 2009 Zolpidem /00/ Hx Tablets 10mg 60tab 1 tab po Unknown Tartrate - s qhs prn 2011 Januvia 00/00/ Hx Tablets 100mg 1 po qd Unknown 2009 Asa 00/00/ Hx 81mg one po qd Unknown 2010 Bupropion HCL 0000/ Hx Tablets ER 300mg one po qd Unknown ER - HR 2011 Levothyroxine 00/00/ Hx Tablets 125mcg 1 po qd Unknown Sodium 2010 Lisinopril /00/ Hx Tablets 10mg 1 po qd Unknown 2010 Prazosin HCL 00/00/ Hx Capsules 2mg 30cap 1 po at hs Unknown - s 2010 Risperidone 00/00/ Hx Tablets 2mg one half at Unknown 0000 - bedtime 2011 Sitagliptin 00/00/ Hx 100mg one po qd Unknown Phosphate 2010 Rosuvastatin CA 00/00/ Hx 40mg one po qd Unknown 2010 Lisinopril 00/00/ Hx Tablets 5mg 1 po qd Unknown 2015 Crestor 00/00/ Hx Tablets 20mg 30tab 1 po qd Unknown - s 2012 Eszopliclone 00/00/ Hx 2mg one po hs Unknown 2011 Prazosin HCL 00/00/ Hx Capsules 1mg 3 po qd Unknown 0000 - 2012 Clonazepam / Hx Tablets 0.5mg as directed Unknown 0000 - 2012 Amlodipine / Hx Tablets 2.5mg 1 tablet Unknown Besylate 0000 - by mouth 06/16/ once daily 2013 hold as of 12.4.14 Venlafaxine HCL / Hx Tablets 75mg 30tab 1 po qd Unknown 0000 - s 2014 Fentanyl / Hx Patches 25mcg/HR 10uni apply one Unknown 0000 - 72HR ts patch once 03/18/ every 3 2012 days Topiramate / Hx Tablets 25mg 1 tablet po Unknown 0000 - qhs 2013 Venlafaxine HCL / Hx Caps ER 75mg 1 by mouth Unknown ER 0000 - 24HR every day 2015 Zinc 15 / Hx Tablets 66mg 1 tablet by Unknown 0000 - mouth daily 2017 Lisinopril / Hx Tablets 5mg 2 by mouth Unknown 0000 - every day 2016 Medications Administered in Office Medication Date Status Form Strength Qnty SIG Indications Ordering Provider Depomedrol Administered Injection Tamela 40MG Balta Bailey M.D. Depomedrol Administered Injection Tamela 40MG 017 Jennifer Bailey Depomedrol Administered Injection Tamela 40MG Balta Bailey M.D. Depomedrol Administered Injection Rom 80MG Evangelista Cole M.D. Depomedrol Administered Injection Rom 80MG 013 Jennifer Cole Vital Signs Date Vital Result Comment 07/24/2017 Height 70 inches 5'10" Weight 270.00 lb BP Systolic 126 mmHg BP Diastolic 78 mmHg Body Temperature 98.1 F Pain Level 4 BMI (Body Mass Index) 38.7 kg/m2 07/13/2017 Height 69 inches 5'9" Weight 273.00 lb No shoes Heart Rate 80 /min BP Systolic Sitting 120 mmHg Rue lrg cuff BP Diastolic Sitting 74 mmHg Rue lrg cuff BP Systolic Standing 112 mmHg Rue lrg cuff BP Diastolic Standing 70 mmHg Rue lrg cuff Respiratory Rate 20 /min BMI (Body Mass Index) 40.3 kg/m2 Ejection Fraction 60-65% date 11/08/13 ECHO 05/22/2017 Height 70 inches 5'10" Weight 270.00 lb BP Systolic 128 mmHg BP Diastolic 74 mmHg Body Temperature 97.8 F Pain Level 8 BMI (Body Mass Index) 38.7 kg/m2 03/10/2017 Height 70 inches 5'10" Weight 270.00 lb Heart Rate 60 /min BP Systolic 128 mmHg BP Diastolic 82 mmHg Respiratory Rate 20 /min Body Temperature 96.6 F Pain Level 0 BMI (Body Mass Index) 38.7 kg/m2 03/01/2017 Height 70 inches 5'10" Weight 270.00 lb Heart Rate 57 /min BP Systolic 141 mmHg BP Diastolic 71 mmHg Body Temperature 97.5 F BMI (Body Mass Index) 38.7 kg/m2 11/18/2016 Height 70 inches 5'10" Weight 260.00 lb Heart Rate 66 /min BP Systolic 120 mmHg BP Diastolic 73 mmHg Body Temperature 97.6 F BMI (Body Mass Index) 37.3 kg/m2 11/01/2016 Height 70 inches 5'10" Weight 258.75 lb with boots Heart Rate 70 /min BP Systolic Sitting 142 mmHg LA lrg cuff BP Diastolic Sitting 78 mmHg LA lrg cuff BP Systolic Standing 132 mmHg la repeat sitting BP Diastolic Standing 76 mmHg la repeat sitting BMI (Body Mass Index) 37.1 kg/m2 Ejection Fraction 55% stress test 01/15/14 10/28/2016 Height 70 inches 5'10" Weight 245.00 lb Heart Rate 64 /min BP Systolic 130 mmHg BP Diastolic 68 mmHg Respiratory Rate 14 /min Pain Level 3 BMI (Body Mass Index) 35.1 kg/m2 10/07/2016 Height 70 inches 5'10" Weight 245.00 lb Heart Rate 64 /min BP Systolic 129 mmHg BP Diastolic 64 mmHg Respiratory Rate 18 /min Body Temperature 97.6 F Pain Level 3 BMI (Body Mass Index) 35.1 kg/m2 10/03/2016 Height 70 inches 5'10" Weight 245.00 lb Heart Rate 58 /min BP Systolic 142 mmHg BP Diastolic 76 mmHg Body Temperature 97.6 F Pain Level 4 BMI (Body Mass Index) 35.1 kg/m2 09/26/2016 Height 70 inches 5'10" Weight 250.00 lb Heart Rate 84 /min BP Systolic 132 mmHg BP Diastolic 84 mmHg Respiratory Rate 16 /min Body Temperature 98.6 F Pain Level 8 BMI (Body Mass Index) 35.9 kg/m2 2016 Height 70 inches 5'10" Weight 265.00 lb with boots Heart Rate 74 /min BP Systolic 124 mmHg LA home cuff BP Diastolic 77 mmHg LA home cuff BP Systolic Sitting 122 mmHg LA lrg cuff in office BP Diastolic Sitting 70 mmHg LA lrg cuff in office BMI (Body Mass Index) 38.0 kg/m2 Ejection Fraction 55% Stress Test 01/15/14 06/15/2016 Height 70 inches 5'10" Weight 267.50 lb with boots Heart Rate 62 /min BP Systolic 151 mmHg LA home cuff BP Diastolic 89 mmHg LA home cuff BP Systolic Sitting 140 mmHg LA lrg cuff, in office BP Diastolic Sitting 84 mmHg LA lrg cuff, in office BMI (Body Mass Index) 38.4 kg/m2 Ejection Fraction 55% stress test 01/15/14 05/16/2016 Height 70 inches 5'10" Weight 262.25 lb with boots Heart Rate 60 /min BP Systolic Sitting 164 mmHg LA, large BP Diastolic Sitting 88 mmHg LA, large BMI (Body Mass Index) 37.6 kg/m2 Ejection Fraction 60-65% echo 11/08/13 04/29/2015 Height 70 inches 5'10" Weight 264.75 lb w/shoes Heart Rate 56 /min BP Systolic Sitting 132 mmHg LA lg cuff BP Diastolic Sitting 82 mmHg LA lg cuff BMI (Body Mass Index) 38.0 kg/m2 Ejection Fraction 55 stress echo 01/15/14 05/29/2014 Height 70 inches 5'10" Weight 245.00 lb Heart Rate 58 /min BP Systolic 112 mmHg LA large cuff BP Diastolic 78 mmHg LA large cuff BMI (Body Mass Index) 35.1 kg/m2 12/31/2013 Height 70 inches 5'10" Weight 271.00 lb Heart Rate 60 /min Pain Level 2 BMI (Body Mass Index) 38.9 kg/m2 10/31/2013 Height 70 inches 5'10" Weight 271.00 lb Heart Rate 55 /min BMI (Body Mass Index) 38.9 kg/m2 10/24/2013 Height 70 inches 5'10" Weight 271.00 lb Heart Rate 55 /min BP Systolic 143 mmHg BP Diastolic 85 mmHg BMI (Body Mass Index) 38.9 kg/m2 10/22/2013 Height 70 inches 5'10" Weight 271.50 lb with shoes Heart Rate 64 /min BP Systolic Sitting 130 mmHg LA lg cuff BP Diastolic Sitting 82 mmHg LA lg cuff BP Systolic Standing 130 mmHg LA lg cuff BP Diastolic Standing 72 mmHg LA lg cuff Respiratory Rate 17 /min BMI (Body Mass Index) 39.0 kg/m2 06/17/2013 Height 70 inches 5'10" Weight 258.00 lb Heart Rate 60 /min BP Systolic 124 mmHg BP Diastolic 62 mmHg BMI (Body Mass Index) 37.0 kg/m2 12/12/2012 Height 70 inches 5'10" Weight 260.00 lb Heart Rate 54 /min BP Systolic 118 mmHg BP Diastolic 64 mmHg BMI (Body Mass Index) 37.3 kg/m2 02/09/2012 Height 70 inches 5'10" Weight 247.00 lb Heart Rate 56 /min BP Systolic 106 mmHg BP Diastolic 64 mmHg BMI (Body Mass Index) 35.4 kg/m2 09/15/2011 Height 70 inches 5'10" Weight 242.00 lb Heart Rate 54 /min BP Systolic Sitting 124 mmHg L BP Diastolic Sitting 60 mmHg L BMI (Body Mass Index) 34.7 kg/m2 01/27/2011 Height 70 inches 5'10" Weight 273.00 lb Heart Rate 52 /min BP Systolic Sitting 110 mmHg L BP Diastolic Sitting 70 mmHg L BMI (Body Mass Index) 39.2 kg/m2 01/22/2010 Height 70 inches 5'10" Weight 278.00 lb Heart Rate 52 /min BP Systolic Sitting 110 mmHg L BP Diastolic Sitting 60 mmHg L O2 % BldC Oximetry 99 % BMI (Body Mass Index) 39.9 kg/m2 10/02/2009 Height 70 inches 5'10" Weight 277.00 lb Heart Rate 48 /min BP Systolic 130 mmHg BP Diastolic 70 mmHg BMI (Body Mass Index) 39.7 kg/m2 05/25/2009 Weight 285.00 lb Heart Rate 57 /min BP Systolic Sitting 120 mmHg BP Diastolic Sitting 70 mmHg Respiratory Rate 16 /min 07/02/2008 Height 70 inches 5'10" Weight 292.00 lb Heart Rate 54 /min BP Systolic Sitting 130 mmHg BP Diastolic Sitting 70 mmHg Respiratory Rate 18 /min BMI (Body Mass Index) 41.9 kg/m2 09/20/2007 Height 70 inches 5'10" Weight 293.00 lb Heart Rate 58 /min BP Systolic Sitting 140 mmHg BP Diastolic Sitting 70 mmHg BP Systolic Standing 120 mmHg BP Diastolic Standing 78 mmHg BMI (Body Mass Index) 42.0 kg/m2 03/14/2007 Height 70 inches 5'10" Weight 278.75 lb Heart Rate 56 /min BP Systolic Sitting 126 mmHg BP Diastolic Sitting 80 mmHg BP Systolic Standing 120 mmHg BP Diastolic Standing 80 mmHg BMI (Body Mass Index) 40.0 kg/m2 12/06/2006 Height 70 inches 5'10" Weight 269.00 lb Heart Rate 57 /min BP Systolic Sitting 124 mmHg BP Diastolic Sitting 79 mmHg BP Systolic Standing 110 mmHg BP Diastolic Standing 70 mmHg BMI (Body Mass Index) 38.6 kg/m2 11/14/2006 Height 70 inches 5'10" Weight 287.00 lb Heart Rate 42 /min BP Systolic Sitting 112 mmHg BP Diastolic Sitting 70 mmHg BP Systolic Standing 106 mmHg BP Diastolic Standing 60 mmHg Respiratory Rate 18 /min BMI (Body Mass Index) 41.2 kg/m2 08/30/2006 Height 70 inches 5'10" Weight 275.00 lb Heart Rate 60 /min reg BP Systolic Sitting 120 mmHg BP Diastolic Sitting 60 mmHg BP Systolic Standing 112 mmHg BP Diastolic Standing 70 mmHg BMI (Body Mass Index) 39.5 kg/m2 06/28/2006 Height 70 inches 5'10" Weight 273.00 lb Heart Rate 51 /min BP Systolic Sitting 118 mmHg R BP Diastolic Sitting 70 mmHg R BP Systolic Standing 118 mmHg R BP Diastolic Standing 68 mmHg R O2 % BldC Oximetry 96 % BMI (Body Mass Index) 39.2 kg/m2 08/25/2005 Height 70 inches 5'10" Weight 276.00 lb Heart Rate 69 /min BP Systolic Sitting 110 mmHg BP Diastolic Sitting 70 mmHg BP Systolic Standing 100 mmHg BP Diastolic Standing 70 mmHg BMI (Body Mass Index) 39.6 kg/m2 12/08/2004 Height 70 inches 5'10" Weight 275.00 lb Heart Rate 63 /min BP Systolic Sitting 120 mmHg BP Diastolic Sitting 70 mmHg BP Systolic Standing 116 mmHg BP Diastolic Standing 78 mmHg BMI (Body Mass Index) 39.5 kg/m2 12/10/2003 Height 70 inches 5'10" Weight 261.00 lb Heart Rate 60 /min BP Systolic Sitting 140 mmHg BP Diastolic Sitting 80 mmHg BP Systolic Standing 130 mmHg BP Diastolic Standing 78 mmHg BMI (Body Mass Index) 37.4 kg/m2 10/09/2003 Height 69 inches Weight 271.00 lb Heart Rate 58 /min BP Systolic Sitting 118 mmHg BP Diastolic Sitting 72 mmHg BP Systolic Standing 110 mmHg BP Diastolic Standing 80 mmHg BMI (Body Mass Index) 40.0 kg/m2 09/02/2003 Height 69 inches Weight 274.00 lb Heart Rate 49 /min BP Systolic Sitting 98 mmHg BP Diastolic Sitting 60 mmHg BP Systolic Standing 102 mmHg BP Diastolic Standing 64 mmHg BMI (Body Mass Index) 40.5 kg/m2 Results Test Date Test Result H/L Range Note Laboratory test 11/03/2016 Point of Care 173 mg/dL High 74-106 1 finding Glucose Inr/Protime 10/28/2016 Inr 0.86 Low 0.89-1.11 Laboratory test 10/28/2016 Partial Thrombo 29.6 seconds 26.0-36.3 finding Time PTT CBC No Diff 10/28/2016 White Blood Count 8.7 10^3/uL 3.5-10.8 Red Blood Count 4.68 10^6/uL 4.0-5.4 Hemoglobin 14.3 g/dL 14.0-18.0 Hematocrit 43 % 42-52 Mean Corpuscular Volume 92 fL 80-94 Mean Corpuscular Hemoglobin 31 pg 27-31 Mean Corpuscular HGB Conc 33 g/dL 31-36 Red Cell Distribution Width 13 % 10.5-15 Platelet Count 204 10^3/uL 150-450 Mean Platelet Volume 9 um3 7.4-10.4 Urinalysis Profile 10/28/2016 Urine Color Straw Urine Appearance Clear Urine Specific [place] 1.003 Low 1.010-1.030 Urine pH 6.0 5-9 Urine Urobilinogen Negative Negative Urine Ketones Negative Negative Urine Protein Negative Negative Urine Leukocytes Trace Negative Urine Blood Negative Negative Urine Nitrite Negative Negative Urine Bilirubin Negative Negative Urine Glucose Negative Negative Urine White Blood Cell Trace(0-5/hpf) Absent Urine Red Blood Cell Absent Absent Urine Bacteria Absent Absent Type & Screen 10/28/2016 Patient Blood Type O Positive Antibody Screen NEGATIVE Comp Metabolic Panel 10/28/2016 Albumin 4.3 g/dL 3.2-5.2 Total Bilirubin 0.50 mg/dL 0.2-1.0 Sodium 138 mmol/L 133-145 Potassium 4.2 mmol/L 3.5-5.0 Chloride 104 mmol/L 101-111 Co2 Carbon Dioxide 24 mmol/L 22-32 Anion Gap 10 mmol/L 2-11 Glucose 137 mg/dL High 70-100 Blood Urea Nitrogen 11 mg/dL 6-24 Creatinine 0.92 mg/dL 0.67-1.17 BUN/Creatinine Ratio 12.0 8-20 Calcium 9.8 mg/dL 8.6-10.3 Total Protein 6.7 g/dL 6.4-8.9 Globulin 2.4 g/dL 2-4 Albumin/Globulin Ratio 1.8 1-3 Alkaline Phosphatase 74 U/L 34-104 Alt 50 U/L 7-52 Ast 32 U/L 13-39 Egfr Non- 81.3 >60 Egfr 104.6 >60 2 Urine Culture And Sensitivities 10/28/2016 Urine Culture SEE RESULT BELOW 3 Laboratory test finding 06/05/2013 Troponin I 0 ng/mL 0-0.06 4 Vitamin B12 575 pg/mL 180-914 Folate > 24.8 ng/mL High 2-16 Blood Urea Nitrogen 21 mg/dL 6-24 Creatinine 06/05/2013 Creatinine 1.20 mg/dL 0.50-1.40 Egfr Non- 60.6 >60 Egfr 77.9 >60 5 Basic Metabolic Panel 01/11/2013 Sodium 139 mmol/L 133-145 Potassium 4.0 mmol/L 3.5-5.0 Chloride 110 mmol/L 101-111 Co2 Carbon Dioxide 24.0 mmol/L 22-32 Anion Gap 5.0 mmol/L 2-11 Glucose 117 mg/dL High 70-100 Blood Urea Nitrogen 12 mg/dL 6-24 Creatinine 1.10 mg/dL 0.50-1.40 BUN/Creatinine Ratio 10.9 8-20 Calcium 9.4 mg/dL 8.1-9.9 Egfr Non- 67.0 >60 Egfr 86.1 >60 6 CBC Auto Diff 01/11/2013 White Blood Count 7.0 10^3/uL 4.8-10.8 Red Blood Count 4.42 10^6/uL 4.0-5.4 Hemoglobin 14.0 g/dL 14.0-18.0 Hematocrit 42 % 42-52 Mean Corpuscular Volume 95 fL High 80-94 Mean Corpuscular Hemoglobin 32 pg High 27-31 Mean Corpuscular HGB Conc 33 g/dL 31-36 Red Cell Distribution Width 13 % 10.5-15 Platelet Count 159 10^3/uL 150-450 Mean Platelet Volume 10 um3 7.4-10.4 Abs Neutrophils 3.7 10^3/uL 1.5-7.7 Abs Lymphocytes 2.3 10^3/uL 1.0-4.8 Abs Monocytes 0.5 10^3/uL 0-0.8 Abs Eosinophils 0.4 10^3/uL 0-0.6 Abs Basophils 0.1 10^3/uL 0-0.2 Abs Nucleated RBC 0 10^3/uL Granulocyte % 53.5 % 38-83 Lymphocyte % 33.1 % 25-47 Monocyte % 7.1 % 1-9 Eosinophil % 5.4 % 0-6 Basophil % 0.9 % 0-2 Nucleated Red Blood Cells % 0.1 Type & Screen 01/11/2013 Patient Blood Type O Positive Antibody Screen NEGATIVE Urinalysis 01/03/2013 Urine Color Yellow Urine Appearance Clear Urine Specific Chadron 1.013 1.010-1.030 Urine Esterase Negative Negative Urine Nitrate Negative Negative Urine Urobilinogen Negative E.U./dL Negative Urine Protein Negative mg/dL Negative Urine pH 6.5 5-9 Urine Blood Negative Negative Urine Ketones Negative mg/dL Negative Urine Bilirubin Negative Negative Urine Glucose Negative mg/dL Negative Laboratory test finding 12/10/2012 Hemoglobin A1c 6.4 % High Less than 6.0 7 TSH (Thyroid Stimulating Horm) 2.77 miu/mL 0.34-5.60 Lipid Profile (Trig/Chol/HDL) 12/10/2012 Triglycerides 81 mg/dL 40-200 Cholesterol 115 mg/dL Less than 200 HDL Cholesterol 45 mg/dL 40-60 8 Cholesterol/HDL Ratio 2.6 Average 1-4.44 LDL Cholesterol 53.8 Less Than 100 9 Comp Metabolic Panel 12/10/2012 Sodium 137 mmol/L 133-145 Potassium 4.0 mmol/L 3.5-5.0 Chloride 107 mmol/L 101-111 Co2 Carbon Dioxide 24.0 mmol/L 22-32 Anion Gap 6.0 mmol/L 2-11 Glucose 121 mg/dL High 70-100 Blood Urea Nitrogen 13 mg/dL 6-24 Creatinine 1.00 mg/dL 0.50-1.40 BUN/Creatinine Ratio 13.0 8-20 Calcium 9.5 mg/dL 8.1-9.9 Total Protein 5.7 g/dL Low 6.2-8.1 Albumin 4.0 g/dL 3.2-5.2 Globulin 1.7 g/dL Low 2-4 Albumin/Globulin Ratio 2.4 1-3 Total Bilirubin 0.6 mg/dL 0.4-1.5 Alkaline Phosphatase 61 U/L 30-110 Alt 27 U/L 14-54 Ast 21 U/L 12-42 Egfr Non- 74.8 >60 Egfr 96.1 >60 10 CBC No Diff 09/22/2011 White Blood Count 6.1 CUMM 4.8-10.8 Red Cell Count 4.42 CUMM Low 4.6-6.2 Hemoglobin 14.6 g/dL 14.0-18.0 Hematocrit 42 % 42-52 Mean Corpuscular Volume 94 um3 80-94 Mean Corpuscular Hemoglob 33 pg High 27-31 Mean Corpuscular HGB Cone 35 g/dL 32-36 Redcell Distribution WDTH 13 % 10.5-15 Platelet Count 165 CUMM 150-450 Mean Platelet Volume 9.8 um3 7.4-10.4 Comp Metabolic Panel 09/22/2011 Sodium 142 mmol/L 135-145 Potassium 4.0 mmol/L 3.5-5.0 Chloride 113 mmol/L High 101-111 Co2 (Carbon Dioxide) 26.0 mmol/L 22-32 Anion Gap 3.0 mmol/L 2-11 11 Glucose 92 mg/dL 70-100 BUN 10 mg/dL 6-24 Creatinine 1.2 mg/dL 0.50-1.40 One Over Creatinine 0.83 BUN/Creatinine Ratio 8.3 8-20 Calcium 9.4 mg/dL 8.1-9.9 Total Protein 6.1 GM/DL Low 6.2-8.1 Albumin 4.0 GM/DL 3.2-5.2 Globulin 2.1 GM/DL 2-4 Albumin/Globulin Ratio 1.9 1-3 Bilirubin Total 0.9 mg/dL 0.4-1.5 12 Alkaline Phosphatase 67 U/L 39-117 Alt (SGPT) 30 U/L 17-63 Ast (Sgot) 20 U/L 12-42 eGFR Non- 60.8 > 60 eGFR 78.1 > 60 13 Lipid Profile (Trig/Chol/HDL) 09/22/2011 Triglyceride 94 mg/dL 40-200 Cholesterol 113 mg/dL Less Than 200 14 High Density Lipoprotein 37 mg/dL Low 40-60 15 Cholesterol/HDL Ratio 3.05 AVERAGE 1-4.97 Low Density Lipoprotein 57 mg/dL Less Than 100 16 Laboratory test finding 09/22/2011 TSH 1.78 MIU/ML 0.34-5.60 Hemoglobin A1c 6.2 % High Less Than 6.0 17 CBC No Diff 01/14/2011 White Blood Count 8.3 CUMM 4.8-10.8 Red Cell Count 4.59 CUMM Low 4.6-6.2 Hemoglobin 14.4 g/dL 14.0-18.0 Hematocrit 43 % 42-52 Mean Corpuscular Volume 93 um3 80-94 Mean Corpuscular Hemoglob 31 pg 27-31 Mean Corpuscular HGB Cone 34 g/dL 32-36 Redcell Distribution WDTH 13 % 10.5-15 Platelet Count 172 CUMM 150-450 Mean Platelet Volume 9.8 um3 7.4-10.4 Comp Metabolic Panel 01/14/2011 Sodium 139 mmol/L 135-145 Potassium 3.9 mmol/L 3.5-5.0 Chloride 108 mmol/L 101-111 Co2 (Carbon Dioxide) 24.0 mmol/L 22-32 Anion Gap 7.0 mmol/L 2-11 18 Glucose 125 mg/dL High 70-100 BUN 12 mg/dL 6-24 Creatinine 1.20 mg/dL 0.50-1.40 One Over Creatinine 0.80 BUN/Creatinine Ratio 10.0 8-20 Calcium 9.6 mg/dL 8.1-9.9 Total Protein 6.5 GM/DL 6.2-8.1 Albumin 4.3 GM/DL 3.2-5.2 Globulin 2.2 GM/DL 2-4 Albumin/Globulin Ratio 2.0 1-3 Bilirubin Total 0.7 mg/dL 0.4-1.5 19 Alkaline Phosphatase 73 U/L 39-117 Alt (SGPT) 48 U/L 17-63 Ast (Sgot) 37 U/L 12-42 eGFR Non- 61.0 > 60 eGFR 78.4 > 60 20 Lipid Profile (Trig/Chol/HDL) 01/14/2011 Triglyceride 166 mg/dL 40-200 Cholesterol 126 mg/dL Less Than 200 21 High Density Lipoprotein 36 mg/dL Low 40-60 22 Cholesterol/HDL Ratio 3.50 AVERAGE 1-4.97 Low Density Lipoprotein 57 mg/dL Less Than 100 23 Laboratory test finding 01/14/2011 TSH 1.33 MIU/ML 0.34-5.60 Hemoglobin A1c 7.0 % High Less Than 6.0 24 Basic Metabolic Panel 07/14/2006 One Over Creatinine 0.83 25 Anion Gap 7.0 mmol/L 2-11 25, 26 BUN 13 mg/dL 6-24 25 Calcium 9.5 mg/dL 8.7-10.2 25 Chloride 107 mmol/L 101-111 25 Co2 (Carbon Dioxide) 28.0 mmol/L 22-32 25 Glucose 93 mg/dL 70-105 25 Potassium 4.5 mmol/L 3.5-5.0 25 Sodium 142 mmol/L 135-145 25 BUN/Creatinine Ratio 10.8 8-20 25 Creatinine 1.2 mg/dL 0.5-1.4 25 Laboratory test finding 07/14/2006 Magnesium 2.2 mg/dL 1.7-2.6 25 1 [employer]: [id number] 2 Because ethnic data is not always readily available, this report includes an eGFR for both -Americans and non- Americans. The National Kidney Disease Education Program (NKDEP) does not endorse the use of the MDRD equation for patients that are not between the ages of 18 and 70, are , have extremes of body size, muscle mass, or nutritional status, or are non- or non-. According to the National Kidney Foundation, irrespective of diagnosis, the stage of the disease is based on the level of kidney function: Stage Description GFR(mL/min/1.73 m(2)) 1 Kidney damage with normal or decreased GFR 90 2 Kidney damage with mild decrease in GFR 60-89 3 Moderate decrease in GFR 30-59 4 Severe decrease in GFR 15-29 5 Kidney failure <15 (or dialysis) 3 SEE RESULT BELOW Name: FAISAL PATTERSON : [address]: Tamela Bailey MD Acct: [id number] Unit: [id number] AGE: 71 Location: [facility] Re10/28/16 SEX: M Status: REG REF SPEC: [id number] KATYA: 10/28/[address]: Tamela Bailey MD REQ: [id number] RECD: 10/28/16 STATUS: COMP _ SOURCE: URINE SPDESC: ORDERED: Urine Culture QUERIES: Urine Source: Random Procedure Result Reported Site Urine Culture Final 10/30/16- 823 ML No Growth (<1,000 CFU/mL) * ML - MAIN LAB ([facility]) . END OF REPORT * ML=Testing performed at Main Lab DEPARTMENT OF PATHOLOGY, [address] [place] [address] Kel Owen M.D. Director [facility] # [id number] 4 Reference Range and Interpretation: TnI (ng/mL) Interpretation Less Than 0.06 ng/mL Not supportive of diagnosis of AL 0.06 - 0.50 ng/mL Indeterminate: suggest serial studies if clinically indicated. Greater than 0.5 ng/mL Consistent with diagnosis of AL 5 Because ethnic data is not always readily available, this report includes an eGFR for both -Americans and non- Americans. The National Kidney Disease Education Program (NKDEP) does not endorse the use of the MDRD equation for patients that are not between the ages of 18 and 70, are , have extremes of body size, muscle mass, or nutritional status, or are non- or non-. According to the National Kidney Foundation, irrespective of diagnosis, the stage of the disease is based on the level of kidney function: Stage Description GFR(mL/min/1.73 m(2)) 1 Kidney damage with normal or decreased GFR 90 2 Kidney damage with mild decrease in GFR 60-89 3 Moderate decrease in GFR 30-59 4 Severe decrease in GFR 15-29 5 Kidney failure <15 (or dialysis) 6 Because ethnic data is not always readily available, this report includes an eGFR for both -Americans and non- Americans. The National Kidney Disease Education Program (NKDEP) does not endorse the use of the MDRD equation for patients that are not between the ages of 18 and 70, are , have extremes of body size, muscle mass, or nutritional status, or are non- or non-. According to the National Kidney Foundation, irrespective of diagnosis, the stage of the disease is based on the level of kidney function: Stage Description GFR(mL/min/1.73 m(2)) 1 Kidney damage with normal or decreased GFR 90 2 Kidney damage with mild decrease in GFR 60-89 3 Moderate decrease in GFR 30-59 4 Severe decrease in GFR 15-29 5 Kidney failure <15 (or dialysis) 7 Therapeutic target for the treatment of diabetes Mellitus patients is <7% HBA1C, and in selective patients <6.0%.Please refer to [place] [employer] Diabetic care guidelines for further information. 8 HDL Interpretation: Undesirable: High Risk: Less than 40 mg/dL Desirable: Low Risk: Greater than 60 mg/dL 9 LDL Interpretation: Low Risk Optimal Level: LDL Less than 100 mg/dL Near or Above Optimal: LDL 100-129 mg/dL Borderline High Risk: LDL 130-159 mg/dL High Risk: LDL 160-189 mg/dL Very High Risk: LDL Greater than 189 mg/dL 10 Because ethnic data is not always readily available, this report includes an eGFR for both -Americans and non- Americans. The National Kidney Disease Education Program (NKDEP) does not endorse the use of the MDRD equation for patients that are not between the ages of 18 and 70, are , have extremes of body size, muscle mass, or nutritional status, or are non- or non-. According to the National Kidney Foundation, irrespective of diagnosis, the stage of the disease is based on the level of kidney function: Stage Description GFR(mL/min/1.73 m(2)) 1 Kidney damage with normal or decreased GFR 90 2 Kidney damage with mild decrease in GFR 60-89 3 Moderate decrease in GFR 30-59 4 Severe decrease in GFR 15-29 5 Kidney failure <15 (or dialysis) 11 Anion gap measurement may be of limited value in the presence of any alkalosis, especially in a combined acid base disorder. . 12 A metabolite of Naproxen, O-desmethylnaproxen, has been shown to interfere with the Jendrassik-Kd method for measuring total bilirubin. Samples from patients who have taken Naproxen have shown spurious elevation in total bilirubin levels. 13 Because ethnic data is not always readily available, this report includes an eGFR for both -Americans and non- Americans. The National Kidney Disease Education Program (NKDEP) does not endorse the use of the MDRD equation for patients that are not between the ages of 18 and 70, are , have extremes of body size, muscle mass, or nutritional status, or are non- or non-. According to the National Kidney Foundation, irrespective of diagnosis, the stage of the disease is based on the level of kidney function: Stage Description GFR(mL/min/1.73 m(2)) 1 Kidney damage with normal or decreased GFR 90 2 Kidney damage with mild decrease in GFR 60-89 3 Moderate decrease in GFR 30-59 4 Severe decrease in GFR 15-29 5 Kidney failure <15 (or dialysis) 14 CHOLESTEROL INTERPRETATION: Desirable: Less than 200 MG/DL Borderline-High Risk: 200-239 MG/DL High-Risk: 240 MG/DL and over 15 HDL INTERPRETATION: Undesirable: High Risk: Less than 40 MG/DL Desirable: Low Risk: Greater than 60 MG/DL 16 LDL INTERPRETATION: Low Risk Optimal Level: LDL Less than 100 MG/DL Near or Above Optimal: LDL 100-129 MG/DL Borderline High Risk: LDL 130-159 MG/DL High Risk: LDL 160-189 MG/DL Very High Risk: LDL Greater than 189 MG/DL 17 THERAPEUTIC TARGET FOR THE TREATMENT OF DIABETES MELLITUS PATIENTS IS <7% HBA1C, AND IN SELECTIVE PATIENTS <6.0%. PLEASE REFER TO [place] [employer] DIABETIC CARE GUIDELINES FOR FURTHER INFORMATION. 18 Anion gap measurement may be of limited value in the presence of any alkalosis, especially in a combined acid base disorder. . 19 A metabolite of Naproxen, O-desmethylnaproxen, has been shown to interfere with the Jendrassik-Kd method for measuring total bilirubin. Samples from patients who have taken Naproxen have shown spurious elevation in total bilirubin levels. 20 Because ethnic data is not always readily available, this report includes an eGFR for both -Americans and non- Americans. The National Kidney Disease Education Program (NKDEP) does not endorse the use of the MDRD equation for patients that are not between the ages of 18 and 70, are , have extremes of body size, muscle mass, or nutritional status, or are non- or non-. According to the National Kidney Foundation, irrespective of diagnosis, the stage of the disease is based on the level of kidney function: Stage Description GFR(mL/min/1.73 m(2)) 1 Kidney damage with normal or decreased GFR 90 2 Kidney damage with mild decrease in GFR 60-89 3 Moderate decrease in GFR 30-59 4 Severe decrease in GFR 15-29 5 Kidney failure <15 (or dialysis) 21 CHOLESTEROL INTERPRETATION: Desirable: Less than 200 MG/DL Borderline-High Risk: 200-239 MG/DL High-Risk: 240 MG/DL and over 22 HDL INTERPRETATION: Undesirable: High Risk: Less than 40 MG/DL Desirable: Low Risk: Greater than 60 MG/DL 23 LDL INTERPRETATION: Low Risk Optimal Level: LDL Less than 100 MG/DL Near or Above Optimal: LDL 100-129 MG/DL Borderline High Risk: LDL 130-159 MG/DL High Risk: LDL 160-189 MG/DL Very High Risk: LDL Greater than 189 MG/DL 24 THERAPEUTIC TARGET FOR THE TREATMENT OF DIABETES MELLITUS PATIENTS IS <7% HBA1C, AND IN SELECTIVE PATIENTS <6.0%. PLEASE REFER TO [place] [employer] DIABETIC CARE GUIDELINES FOR FURTHER INFORMATION. 25 FASTING 26 Anion gap measurement may be of limited value in the presence of any alkalosis, especially in a combined acid base disorder. . Procedures Date CPT Code Description Status 08/08/2017 37815 Holter Monitor Review (24 hr)dr michaels & blaine Completed only 08/08/2017 22145 ECG Monitor/Recording W/Visual Superimposition Scanning Completed 07/13/2017 43732 EKG Tracing & Interpretation Completed 05/22/2017 90512 Inject/Drain Joint/Bursa Major Completed 03/01/2017 57273 Inject/Drain Joint/Bursa Major Completed 11/03/2016 52336 Arthroscopy,Knee,Meniscectomy Media & Lateral Completed 11/03/2016 52704 Arthroscopy,Knee,Meniscectomy Media & Lateral Completed 11/01/2016 10315 EKG Tracing & Interpretation Completed 09/26/2016 36340 Inject/Drain Joint/Bursa Major Completed 05/16/2016 42368 EKG Tracing & Interpretation Completed 04/29/2015 52925 EKG Tracing & Interpretation Completed 05/29/2014 17033 EKG Tracing & Interpretation Completed 01/15/2014 23350 ECHO Stress Test Incl Perf Contiuous ekg Monitoring Completed W/Phys Superv 11/26/2013 56274 Holter Monitoring 24 HR New Completed 11/08/2013 04041 ECHO Transthoracic, Real-Time 2D With Doppler And Color Completed Flow 10/24/2013 58815 Rad Shoulder Comp, Min. 2 Views Completed 10/24/2013 96748 Rad Shoulder Comp, Min. 2 Views Completed 10/22/2013 03985 EKG Tracing & Interpretation Completed 07/18/2013 46774 Rad Shoulder Comp, Min. 2 Views Completed 06/17/2013 17400 EKG Tracing & Interpretation Completed 01/31/2013 23601 Rad Shoulder Comp, Min. 2 Views Completed 01/18/2013 05065 Arthroplasty,Total Shoulder Replacement (TSR) Completed 01/03/2013 28587 EKG, Interpretation Only Completed 12/12/2012 11153 EKG Tracing & Interpretation Completed 11/27/2012 00197 Inject/Drain Joint/Bursa Major Completed 11/27/201202844 Inject/Drain Joint/Bursa Major Completed 02/09/2012 92838 EKG Tracing & Interpretation Completed 01/25/2012 06445 Nerve Conduction, Sensory Completed 01/25/2012 15326 Nerve Conduction, Motor W/O F-Wave Study Completed 09/19/2011 49292 ECHO Stress Test Incl Perf Contiuous ekg Monitoring Completed W/Phys Superv 09/15/2011 50102 EKG Tracing & Interpretation Completed 09/08/2011 56805 Rad Shoulder Comp, Min. 2 Views Completed 09/08/2011 10618 Rad Shoulder Comp, Min. 2 Views Completed 01/27/2011 55475 EKG Tracing & Interpretation Completed 01/22/2010 40176 EKG Tracing & Interpretation Completed 11/30/2009 44973 Mobile Cardiovascular Telemetry Over 24 HR Up To 30 Completed Days 10/23/2009 66490 Mobile Cardiovascular Telemetry Over 24 HR Up To 30 Completed Days 10/14/2009 45050 ECHO Stress Test Incl Perf Contiuous ekg Monitoring Completed W/Phys Superv 10/08/2009 75035 Holter Monitor Interpretation Completed 10/02/2009 93182 EKG Tracing & Interpretation Completed 06/25/2009 71780 Stress ECHO Interpretation/Report Hospital Completed 06/25/2009 57046 Treadmill Interp/Report Only Completed 06/25/2009 89294 Stress Test Supervsn W/Out I/R Completed 06/18/2009 58969 Treadmill Interp/Report Only Completed 06/18/2009 91668 Stress Test Supervsn W/Out I/R Completed 05/25/2009 98484 EKG Tracing & Interpretation Completed 07/02/2008 85429 EKG Tracing & Interpretation Completed 07/02/2008 46469 EKG Tracing & Interpretation Completed 09/20/2007 73887 EKG Tracing & Interpretation Completed 03/14/2007 25517 EKG Tracing & Interpretation Completed 12/06/2006 10768 EKG Tracing & Interpretation Completed 12/06/2006 91723 EKG Tracing & Interpretation Completed 11/14/2006 77994 EKG Tracing & Interpretation Completed 11/14/2006 42754 EKG Tracing & Interpretation Completed 06/28/2006 23475 EKG Tracing & Interpretation Completed 08/25/2005 15075 EKG Tracing & Interpretation Completed 12/08/2004 42149 EKG Tracing & Interpretation Completed 09/02/2003 23354 EKG Tracing & Interpretation Completed 08/26/2003 98697 Color Doppler Completed 08/26/2003 06716 Pulse Doppler & Continuous Wave Completed 08/26/2003 99163 Echocardiogram Completed Encounters Type Date Location Provider CPT E/M Dx Office Visit 07/13/2017 11:00a [facility] [address], [address] I10 Training Specialist Jennifer I71.2 R00.1 E11.9 R42 I42.9 R94.31 Office Visit 05/22/2017 9:30a [facility] M.D. 00803 M25.561 C.M.A. M25.461 M17.11 Office Visit 03/10/2017 11:00a [facility] M.D. 87819 M25.561 C.M.A. M25.461 M17.11 S83.241D Office Visit 03/01/2017 12:00p [facility] M.D. 26604 M25.561 C.M.A. M25.461 M17.11 Office Visit 11/01/2016 1:40p [facility] [address], [address] M25.561 Jennifer I10 I71.2 R00.1 E66.9 I45.10 Z01.810 Office Visit 10/07/2016 1:00p [facility] M.D. 75977 M25.561 C.M.A. M25.461 M17.11 S83.241D Office Visit 10/03/2016 9:15a [facility] M.D. 97752 M25.561 C.M.A. M25.461 M17.11 Office Visit 09/26/2016 1:00p [facility] M.D. 49597 M25.561 C.M.A. M25.461 M17.11 Office Visit 2016 8:30a [facility] JAY Gordon 71083 E66.9 I10 I71.2 Office Visit 06/15/2016 8:30a [facility] JAY Gordon 27805 I10 E66.9 I71.2 Office Visit 05/16/2016 9:00a [facility] [address] M.D. 14539 I71.2 I10 E66.9 R00.1 E78.00 Office Visit 04/29/2015 9:00a [facility] [address] M.D. 63826 I49.5 I71.2 I10 E66.9 Office Visit 05/29/2014 10:00a [facility] [address] M.D. 06153 368.2 427.81 441.2 428.32 401.1 Office Visit 01/15/2014 1:30p [facility] [address] [address] 786.59 MKeith 368.2 427.81 Office Visit 12/31/2013 8:00a [facility] M.D. 27770 718.81 C.M.A. Office Visit 10/31/2013 1:30p [facility] M.D. 09355 719.41 C.M.A. Office Visit 10/24/2013 9:00a [facility] Nathalia Galan 32230 719.41 C.M.A. RPA-C Office Visit 10/22/2013 9:00a [facility] [address], [address] 401.1 M.D. 441.2 427.81 Office Visit 07/18/2013 11:30a [facility] M.D. 26982 716.91 C.M.A. Office Visit 06/17/2013 3:20p [facility] [address], [address] 441.2 M.D. 401.1 427.81 786.59 Office Visit 05/21/2013 9:00a [facility] M.D. 19659 716.81 C.M.A. Office Visit 12/12/2012 9:20a [facility] [address], [address] 716.81 M.D. 441.2 428.32 794.31 401.1 427.81 327.26 Office Visit 11/27/2012 9:15a [facility] M.D. 99904 716.81 C.M.A. 716.91 716.91 719.41 Office Visit 02/09/2012 9:00a [facility] [address] M.D. 21817 354.0 272.0 786.50 441.2 Office Visit 01/25/2012 3:00p Jacoby/Carrington Brito 17676 354.0 Marques Baker M.D. Office Visit 09/15/2011 2:40p [facility] [address] 427.81 428.32 441.2 794.31 Office Visit 09/08/2011 9:00a [facility] M.D. 00465 716.91 C.M.A. Office Visit 01/27/2011 2:40p [facility] [address] [address] 786.50 M.DEmma 272.0 401.1 427.81 Office Visit 01/22/2010 3:00p [facility] [address] [address] 427.81 M.D. 786.50 272.0 401.1 Office Visit 10/14/2009 9:30a [facility] [address] [address] 786.50 M.D. 272.0 401.1 428.32 278.01 427.81 Office Visit 10/02/2009 1:40p [facility] [address] [address] 786.50 M.D. 272.0 401.1 428.32 278.01 782.3 Office Visit 05/25/2009 9:30a [facility] [address] M.D. 73455 272.0 401.1 428.32 278.01 427.81 441.2 Office Visit 07/02/2008 3:20p [facility] [address] [address] 786.50 M.D. 272.0 401.1 428.32 Office Visit 09/20/2007 9:20a [facility] [address] [address] 786.50 M.D. 272.0 401.1 428.32 278.01 Office Visit 03/14/2007 8:40a [facility] [address] [address] 786.50 M.D. 272.0 401.1 428.32 278.01 Office Visit 12/06/2006 2:40p [facility] [address] [address] 427.81 M.D. 401.1 272.0 Office Visit 11/14/2006 3:20p [facility] [address] M.D. 67171 780.4 427.81 401.1 Office Visit 08/30/2006 11:00a [facility] [address] [address] 786.50 M.D. 401.1 278.01 Office Visit 06/28/2006 3:40p [facility] [address] [address] 428.32 M.D. 786.50 401.1 272.0 Office Visit 08/25/2005 10:20a [facility] [address] [address] 428.32 M.D. 401.1 278.01 Office Visit 12/08/2004 10:40a [facility] [address] [address] 786.50 Jennifer 278.01 401.1 Office Visit 12/10/2003 9:00a [facility] [address] M.D. 34868 272.0 786.59 401.1 V58.69 Office Visit 10/09/2003 2:20p [facility] [address] M.D. 54737 428.0 786.59 Office Visit 09/02/2003 1:40p [facility] [address] M.D. 89458 428.0 786.50 272.0 780.7 Plan of Care Future Appointment(s):09/11/2017 9:00 am - Tamela [facility] M[facility] at [facility]09/21/2017 9:30 am - Tamela Bailey M.D. at [facility]10/04/2017 9:30 am - Tamela Bailey M.D. at [facility]09/15/2017 12:30 pm - [address] [facility] M.D. at [facility]09/18/2017 3:40 pm - [address] M.D. at [facility]07/24/2017 - Tamela Bailey M.D.M25.561 Pain in right kneeFollow up:Follow up: for H&PM25.461 Effusion, right kneeM17.11 Unilateral primary osteoarthritis, right knee
[2017-08-26 14:45] VITALS: BP 131/77
--- NOTE | 2017-08-26 14:59 | UC ---
Hip/Pelvis Pain - HPI Summary HPI Summary: 72 yo male with left hip pain x 2 days no known injury has right knee pain and it is scheduled to be replaced in mid August pain worse with wt bearing and with lifting leg to go up stairs - History Of Current Complaint Chief Complaint: UCLowerExtremity Stated Complaint: GROIN PAIN Time Seen by Provider: 08/26/17 14:36 Hx Obtained From: Patient Onset/Duration: Gradual Onset, Lasting Days Timing: Constant Severity Initially: Moderate Severity Currently: Moderate Pain Intensity: 5 Pain Scale Used: 0-10 Numeric - Allergies/Home Medications Allergies/Adverse Reactions: Allergies Allergy/AdvReac Type Severity Reaction Status Date / Time niacin Allergy Unknown Verified 08/26/17 14:37 Reaction Details sertraline Allergy DOUBLE Verified 08/26/17 14:37 VISION BEE STINGS Allergy Severe Swelling Uncoded 08/26/17 14:37 TRAZADONE Allergy Unknown Unknown Uncoded 08/26/17 14:37 Reaction Details Home Medications: Home Medications Glimepiride 1 mg PO BID 08/26/17 [History Confirmed 08/26/17] Hydrocodone/Acetaminophen [Vicodin 5-300 mg] 1 tab PO Q6H PRN 08/26/17 [History Confirmed 08/26/17] Ibuprofen 800 mg PO TID PRN 08/26/17 [History Confirmed 08/26/17] Venlafaxine EXT RELEASE CAP* [Effexor Xr CAP*] 3 tab PO DAILY 08/26/17 [History Confirmed 08/26/17] PMH/Surg Hx/FS Hx/Imm Hx Previously Healthy: Yes Endocrine History: Diabetes Cardiovascular History: Cardiac Disease, Hypertension - Surgical History Surgical History: Yes Surgery Procedure, Year, and Place: CARDIAC CATH X 2 - NO STENT LATE TO DERECK S, ALSO IN 1999. abdominal hernia 1979. RIGHT SHOULDER Surgeries then REPLACEMNT 12/2012 AND LEFT SHOULDER - RCT. 2 TOTAL SURGERIES LEFT SHOULDER 3 FOR THE RIGHT. RIGHT CARPAL TUNNEL - Family History Known Family History: Positive: Cardiac Disease, Hypertension - Social History Alcohol Use: Rare Alcohol Amount: 1 GLASS WINE NO MORE THAN ONCE MONTH Substance Use Type: None Smoking Status (MU): Light Every Day Tobacco Smoker Type: Smokeless Tobacco Amount Used/How Often: DOES NOT SMOKE CIGG, CHEWS TOBACCO DAILY FOR PAST 55+ YRS Length of Time of Smoking/Using Tobacco: 48 yrs Have You Smoked in the Last Year: Yes - Immunization History Most Recent Influenza Vaccination: 2007 Most Recent Tetanus Shot: UTD Review of Systems Constitutional: Negative Skin: Negative Eyes: Negative ENT: Negative Respiratory: Negative Cardiovascular: Negative Gastrointestinal: Negative Genitourinary: Negative Motor: Negative Neurovascular: Negative Musculoskeletal: Arthralgia Neurological: Negative Psychological: Negative Is Patient Immunocompromised?: No All Other Systems Reviewed And Are Negative: Yes Physical Exam Triage Information Reviewed: Yes Appearance: Well-Appearing, No Pain Distress, Well-Nourished Vital Signs: Initial Vital Signs Temp 97.6 F 08/26/17 14:38 Pulse 57 08/26/17 14:38 Resp 18 08/26/17 14:38 BP 131/77 08/26/17 14:38 Pulse Ox 100 08/26/17 14:38 Vital Signs Reviewed: Yes Eyes: Positive: Conjunctiva Clear ENT: Positive: Hearing grossly normal. Negative: Nasal congestion, Nasal drainage, Trismus, Muffled voice, Hoarse voice Neck: Positive: Supple Respiratory: Positive: Lungs clear, Normal breath sounds, No respiratory distress Cardiovascular: Positive: RRR, No Murmur Abdomen Description: Positive: Other: - no left inguinal nodes noted. Negative : Hernia @ Musculoskeletal: Positive: Other: - pian int and ext rotation of left hip no pain with axial compression antalgic gait Psychological Exam: Normal Skin Exam: Normal Diagnostics - Radiology No standard instances Xray Interpretation: No Acute Changes - DJD Radiology Interpretation Completed By: Radiologist Hip Injury Course/Dx - Differential Dx/Diagnosis Provider Diagnoses: left groin strain Discharge - Discharge Plan Condition: Stable Disposition: HOME Patient Education Materials: Groin Strain (ED) Referrals: Aba Avitia MD [Primary Care Provider] - Additional Instructions: You XR showed some arthritis of the hip I did not appreciate a hernia or swollen lymph nodes I suggest that at your next visit with your MD that you have your groin re- examined
--- NOTE | 2017-08-26 15:16 | RAD ---
HISTORY: Left hip pain COMPARISONS: September 12, 2014 VIEWS: 3, Frontal view of the pelvis with frontal and frog-leg views of the left hip FINDINGS: BONE DENSITY: Normal. BONES: There is no displaced fracture. JOINTS: There is mild osteoarthritis of the hips and SI joints bilaterally. ALIGNMENT: There is no dislocation. SOFT TISSUES: Unremarkable. OTHER FINDINGS: Degenerative changes are noted of the lower lumbar spine. IMPRESSION: OSTEOARTHRITIS. NO ACUTE OSSEOUS INJURY. IF SYMPTOMS PERSIST, RECOMMEND REPEAT IMAGING.
== END 2017-08-26 15:35 | disposition home or self-care (01) ==
LOC: UCCORT 12:02
DX: S76.812A Strain of other specified muscles, fascia and tendons at thigh level, left thigh, initial encounter (principal); X58.XXXA Exposure to other specified factors, initial encounter; Y93.9 Activity, unspecified; Y92.9 Unspecified place or not applicable; Z88.8 Allergy status to other drugs, medicaments and biological substances; Z91.030 Bee allergy status; E11.9 Type 2 diabetes mellitus without complications; Z79.84 Long term (current) use of oral hypoglycemic drugs; F17.220 Nicotine dependence, chewing tobacco, uncomplicated
CPT/HCPCS: 99212; G0463

== ENCOUNTER 2017-08-30 19:06 | Emergency (ER) | payer MEDICARE, OTHER ==
[2017-08-30] MEDS ORDERED: Ketorolac INJ* 30 MG/ML 1 ML VIAL IM ONE (20:24)
--- NOTE | 2017-08-30 21:08 | RAD ---
Indication: Left groin pain evaluate for fracture. CT of the pelvis was obtained in the axial plane. Special attention was paid to the left pelvis. Degenerative changes of the lumbar spine are noted. The ileum demonstrates no fracture. The superior and inferior rami appear patent without evidence of fracture. Degenerative changes of both hips are noted. The femoral head and neck demonstrates no fracture. The urinary bladder is unremarkable. The colon is filled with stool. No retroperitoneal adenopathy is noted. IMPRESSION: Degenerative changes of the lumbar spine. No fracture of the pelvis is identified. Degenerative changes of the left hip are noted.
--- NOTE | 2017-08-30 21:59 | ED ---
Lower Extremity - HPI Summary HPI Summary: This 72-year-old man comes into the emergency Department today with complaints of left hip pain. He expresses increased frustration with the pain. He has been seen at the urgent care in the last 5 days he has been seen by his primary care doctor as well he spoke to the orthopedic doctor which is planning to do a knee replacement on his right knee about his left hip pain that continues. He reports a little pain relief with narcotic pain medication he states that the pain is so bad he has to physically lift up his leg there is nothing that's making it comfortable - History of Current Complaint Chief Complaint: EDExtremityLower Stated Complaint: LT SIDE GROIN PAIN Time Seen by Provider: 08/30/17 20:02 Hx Obtained From: Patient Onset/Duration: Weeks Severity Initially: Severe Severity Currently: Severe Pain Intensity: 10 Timing: Constant Location: Is Discrete @ - left hip/groin worse with movement Character Of Pain: Aching, Throbbing Associated Signs And Symptoms: Positive: Negative Aggravating Factor(s): Standing, Ambulation, Movement, Weight Bearing Alleviating Factor(s): Nothing Able to Bear Weight: Yes - Allergies/Home Medications Allergies/Adverse Reactions: Allergies Allergy/AdvReac Type Severity Reaction Status Date / Time niacin Allergy Unknown Verified 08/26/17 14:37 Reaction Details sertraline Allergy DOUBLE Verified 08/26/17 14:37 VISION BEE STINGS Allergy Severe Swelling Uncoded 08/26/17 14:37 TRAZADONE Allergy Unknown Unknown Uncoded 08/26/17 14:37 Reaction Details PMH/Surg Hx/FS Hx/Imm Hx Previously Healthy: No Endocrine/Hematology History: Reports: Hx Diabetes - TYPE II controlled with medication, Hx Thyroid Disease - HYPOTHYROID Denies: Hx Systemic Lupus Erythematosus, Hx Sickle Cell Disease Cardiovascular History: Reports: Hx Aneurysm - Thoracic aortic aneurysm, states is stable, Hx Hypercholesterolemia, Hx Hypertension - controlled with medication , Other Cardiovascular Problems/Disorders - aortic aneurysm 2010 Denies: Hx Congestive Heart Failure, Hx Pacemaker/ICD Respiratory History: Reports: Hx Sleep Apnea Denies: Hx Asthma, Hx Chronic Obstructive Pulmonary Disease (COPD), Hx Lung Cancer, Other Respiratory Problems/Disorders GI History: Reports: Hx Gastroesophageal Reflux Disease, Hx Hiatal Hernia - RESOLVED Denies: Hx Ulcer History: Denies: Hx Dialysis, Hx Renal Disease, Other Problems/Disorders Musculoskeletal History: Reports: Hx Arthritis - OSTEO GENERALIZED, Hx Tendonitis, Other Musculoskeletal History - Bilateral rotator cuff problems Denies: Hx Rheumatoid Arthritis Sensory History: Reports: Hx Contacts or Glasses - WEARS GLASSES, Hx Hearing Aid - BI-LAT Opthamlomology History: Reports: Hx Contacts or Glasses - WEARS GLASSES Neurological History: Denies: Other Neuro Impairments/Disorders Psychiatric History: Reports: Hx Anxiety - controlled with medication, Hx Depression - controlled with medication, Hx Post Traumatic Stress Disorder Denies: Hx Panic Disorder - Cancer History Hx Chemotherapy: No - Surgical History Surgery Procedure, Year, and Place: CARDIAC CATH X 2 - NO STENT LATE TO DERECK , ALSO IN 1999. abdominal hernia 1979. RIGHT SHOULDER Surgeries then REPLACEMNT 12/2012 AND LEFT SHOULDER - RCT. 2 TOTAL SURGERIES LEFT SHOULDER 3 FOR THE RIGHT. RIGHT CARPAL TUNNEL Hx Anesthesia Reactions: No Infectious Disease History: No Infectious Disease History: Denies: Hx Hepatitis, Hx Human Immunodeficiency Virus (HIV), Traveled Outside the [place] in Last 30 Days - Family History Known Family History: Positive: Cardiac Disease, Hypertension - Social History Occupation: Retired Lives: With Family Alcohol Use: Rare Alcohol Amount: 1 GLASS WINE NO MORE THAN ONCE MONTH Substance Use Type: Reports: None Smoking Status (MU): Light Every Day Tobacco Smoker Type: Smokeless Tobacco Amount Used/How Often: DOES NOT SMOKE CIGG, CHEWS TOBACCO DAILY FOR PAST 55+ YRS Length of Time of Smoking/Using Tobacco: 48 yrs Have You Smoked in the Last Year: Yes Review of Systems Constitutional: Negative Eyes: Negative ENT: Negative Cardiovascular: Negative Respiratory: Negative Gastrointestinal: Negative Genitourinary: Negative Positive: Arthralgia - left hip Skin: Negative Neurological: Negative Psychological: Normal All Other Systems Reviewed And Are Negative: Yes Physical Exam Triage Information Reviewed: Yes Vital Signs On Initial Exam: Initial Vitals Temp Pulse Resp BP Pulse Ox 98.2 F 67 16 134/79 98 08/30/17 19:09 08/30/17 19:09 08/30/17 19:09 08/30/17 19:09 08/30/17 19:09 Vital Signs Reviewed: Yes Appearance: Positive: Well-Appearing, Pain Distress, Obese Skin: Positive: Warm, Skin Color Reflects Adequate Perfusion Eyes: Positive: Normal, EOMI, Conjunctiva Clear ENT: Positive: Normal ENT inspection, Hearing grossly normal. Negative: Nasal congestion, Trismus, Muffled voice, Hoarse voice Neck: Positive: Supple, Nontender Respiratory/Lung Sounds: Positive: Breath Sounds Present Cardiovascular: Positive: Normal, RRR, Pulses are Symmetrical in both Upper and Lower Extremities Abdomen Description: Positive: Nontender, No Organomegaly, Soft. Negative: CVA Tenderness (R), CVA Tenderness (L) Bowel Sounds: Positive: Present Musculoskeletal: Positive: Strength/ROM Intact - Limited due to pain, Abnormal @ - Left hip pain worsens with movement, Pain @ - Pain in his left hip that worsens with movement Neurological: Positive: Normal, Sensory/Motor Intact, Alert, Oriented to Person Place, Time Psychiatric: Positive: Normal AVPU Assessment: Alert - [place] Coma Scale Best Eye Response: 4 - Spontaneous Best Motor Response: 6 - Obeys Commands Best Verbal Response: 5 - Oriented Coma Scale Total: 15 Diagnostics - Vital Signs Vital Signs Temp Pulse Resp BP Pulse Ox 08/30/17 19:09 98.2 F 67 16 134/79 98 - Laboratory Diagnostic Studies Comment: CT reports degenerative arthritic changes of left hip no evidence of fracture Lab Statement: Any lab studies that have been ordered have been reviewed, and results considered in the medical decision making process. Lower Extremity Course/Dx - Course Assessment/Plan: Patient given IM Toradol patient states that always gets some good relief ibuprofen was discontinued and changed to Mobic encourage patient to use his walker at home will follow-up with orthopedics as planned return to emergency department as needed - Diagnoses Provider Diagnoses: Osteoarthritis of left hip Discharge - Discharge Plan Condition: Stable Disposition: HOME Prescriptions: Meloxicam(NF) [Mobic(NF)] 7.5 mg PO BID PRN #30 tab PRN Reason: pain Patient Education Materials: Osteoarthritis (ED), Hip Pain (ED) Referrals: Tamela Bailey MD [Medical Doctor] - 3 Days
[2017-08-30 22:09] VITALS: BP 138/78
== END 2017-08-30 22:00 | disposition home or self-care (01) ==
LOC: ED 19:06
DX: M16.12 Unilateral primary osteoarthritis, left hip (principal); M47.816 Spondylosis without myelopathy or radiculopathy, lumbar region; Z88.8 Allergy status to other drugs, medicaments and biological substances
CPT/HCPCS: 72192; 96372; 99282; J1885

== ENCOUNTER 2017-09-21 07:30 | Inpatient (IN) | payer MEDICARE, OTHER ==
--- NOTE | 2017-09-11 16:20 | HP ---
HISTORY AND PHYSICAL: DATE OF ADMISSION/SURGERY: 09/21/17 SURGEON: Tamela Bailey MD * (DICTATED BY JAY CANCINO) PROCEDURE: Right total knee arthroplasty. CHIEF COMPLAINT: Right knee pain. HISTORY OF PRESENT ILLNESS: Mr. Talavera is a 72-year-old gentleman with continued complaints of right knee pain. He has failed conservative management. He has elected to proceed with right total knee arthroplasty, which is scheduled for 09/21/[address] Bailey. PAST MEDICAL HISTORY: Thoracic aortic aneurysm, diabetes, hypothyroidism, obesity, PTSD, sleep apnea and bradycardia. PAST SURGICAL HISTORY: Right carpal tunnel release, abdominal hernia repair, multiple bilateral shoulder surgeries and a right total shoulder replacement. CURRENT MEDICATIONS: 1. Albuterol HFA as needed. 2. Amlodipine 5 mg daily. 3. Ascorbic acid 500 mg daily. 4. Aspirin 81 mg daily. 5. Atorvastatin 10 mg daily. 6. Vitamin D. 7. EpiPen as needed. 8. Glimepiride 1 mg 2 times a day. 9. [place] 5/325 as needed for pain. 10. Levothyroxine 137 mcg daily. 11. Losartan potassium 100 mg every day. 12. Metformin 500 mg twice daily. 13. Multivitamin. 14. Omeprazole 20 mg daily. 15. Prazosin 1 mg q.h.s. 16. Januvia 100 mg daily. 17. Effexor 112.5 mg daily. ALLERGIES: BEE STINGS, NIASPAN, TRAZODONE and ZOLOFT. FAMILY HISTORY: Cancer, stroke and diabetes. SOCIAL HISTORY: This 72-year-old mother lives with his . He chews tobacco. He does not use drugs. He uses alcohol rarely. REVIEW OF SYSTEMS: A complete 14-point review of systems was reviewed with the patient, is positive for diabetes, hypothyroidism, sleep apnea. He denies history of DVT, PE, hepatitis C, HIV or anesthesia problems. PHYSICAL EXAMINATION GENERAL: He is well-developed, well nourished in no acute distress. VITAL SIGNS: He stands 5 feet 10 inches tall, weighs 277 pounds. His blood pressure is 120/84, his heart rate is 88. HEENT: Normocephalic, atraumatic. NECK: Supple. No palpable lymph nodes. PULMONARY: Lungs are clear to auscultation bilaterally. CARDIO: Regular rate and rhythm. Strong S1 and S2. ABDOMEN: Soft, nontender, nondistended. NEUROLOGIC: He is alert and oriented x3. Cranial nerves II through XII are intact. MUSCULOSKELETAL: Right lower extremity skin is intact. There are no open wounds or abrasions. He has some tenderness over the medial and lateral joint line. Range of motion 5 to 120 degrees, patellofemoral crepitus. 2+ dorsalis pedis pulses. He has intact sensation and his lower extremities muscle group strengths are intact at 5/5. ASSESSMENT AND PLAN: Mr. Talavera is a 72-year-old gentleman with continued complaints of right knee pain. He has failed conservative management and elected to proceed with a right total knee arthroplasty, which is scheduled for 09/21/[address] Bailey discussed the risks and benefits of surgery at today's visit. Coumadin and Colace were sent to his pharmacy for postoperative DVT prophylaxis. He currently has a prescription for [place]. We will send pain medication at the time of discharge. He will follow up with Dr. Bailey 2 weeks after the surgery. JAY CANCINO [id number]/[facility] #: [id number] [place]
[~2017-09-21 07:30] MED LIST: Acetaminophen IV 1GM/100ML * 1,000 MG/100 ML VIAL IVPB ONE; Buffered Lidocaine 0.9% SYRIN* 5 ML/SYR SYRINGE INTRADERM ONE; Dexamethasone IV* 4 MG/ML 1 ML (4 MG) IV SLOW PU ONE; Gabapentin CAP(*) 300 MG PO ONE
--- OUTSIDE RECORDS SUMMARY | 2017-09-21 09:58 | XMS REPORT ---
:1945 External Reference #:[id number] Author Organization [facility] [employer] Address [address] [address] Phone [phone] Care Team Providers Name Role Phone Aba Avitia MD Primary Care Physician Unavailable Payers Type Date Identification Numbers Payment Provider Subscriber Medicare Primary Effective: Policy Number: Medicare Faisal Artish 1998 [id number] PayID: [id number] [address] [place] [address] Medimelber Part B Effective: 2003 Policy Number: Inc. Abdulaziz Faisal Talavera [id number] Expires: 2014 Group Number: [id number] [id number] PayID: [place] [address] Commercial Policy Number: [id number] Lifetime Benefit Solution Faisal Aaron Ilan Group Number: [id number] [address] PayID: [place] [address] Problems Date Description Provider Status Onset: 09/15/2011 [...] Localized, primary osteoarthritis Tamela Bailey M.D. 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 at night as directed Colace 09/11/ Active Capsules 100mg 90cap 1 tab by Tamela 2017 s mouth 2-3 Leo, times a day M.D. as needed Meloxicam 09/04/ Active Tablets 15mg 30tab 1 by mouth M25.552 Tamela 2017 s every day Jennifer Bailey [place] 05/11/ Active Tablets 5-325mg 60tab 1 tabs by Tamela 2016 s mouth every Leo, 12 hours M.D. Glimepiride 04/21/ Active Tablets 1mg Take One Sadi 2016 Tablet By MD Aba Mouth Two Times A Day Amlodipine 06/15/ Active Tablets 5mg 90tab 1 by mouth Lance Melgar 2016 s every day [address] M.D. Venlafaxine HCL 06/13/ Active Tablets 37.5mg 3 tabs by Unknown 2015 mouth daily Metformin HCL 05/28/ Active Tablets 500mg 60tab 2 by mouth Other 2013 s twice a day Ordering Provider Prazosin HCL 06/17/ Active Capsules 1mg 1 po Lance [address] M.D. Cpap 12/08/ Active Tablets q Lance [address] M.D. Levothyroxine / Active Tablets 137mcg 1 po qd Unknown Sodium 0000 before breakfast Januvia / Active Tablets 100mg 90tab 1 po qd Unknown 0000 s Omeprazole / Active Capsules 20mg 1 cap po Unknown [address] DR daily Multivitamins / Active Tablets 30tab 1 po qd Unknown 0000 s Vitamin D3 / Active Tablets 2000Unit 30tab [...] mouth every Leo, 02/28/ 6 hours as M.DEmma 2017 needed pain Naproxen 09/26/ Hx Tablets 500mg 30tab 1 tablet M25.561 Tamela 2017 - s with food Leo, 02/28/ by mouth M.DEmma 2016 twice a day Amlodipine 05/16/ Hx Tablets 2.5mg 90tab 1 by mouth Lance Besananda 2015 - s every day Radha 06/15/ Yenifer 2015 Jennifer Crestor 05/28/ Hx Tablets 20mg 1 by mouth Other 2013 - every day Ordering 05/29/ Provider 2014 Crestor 05/28/ Hx Tablets 10mg 1 by mouth Other 2014 - every day Ordering 04/28/ Provider 2015 Tramadol HCL 10/24/ Hx Tablets 50mg 40tab 1 tab every Rom 2014 - s 6 hours as Douglas, 10/24/ needed pain M.D. 2013 Naproxen 10/24/ Hx Tablets 500mg 60tab 1 tab by Rom 2013 - s mouth twice , 01/15/ a day. Take M.D. 2013 with food. Crestor 06/17/ Hx Tablets 10mg 1 by mouth Lance 2012 - every day F. 05/29/ Yenifer, 2013 M.D. Clonazepam 06/17/ Hx Tablets 1mg 1 tablet po Lance 2012 - Am, 2 F. 06/14/ tablet po Tasiauser, 2015 PM M.D. Percocet 01/25/ Hx Tablets 5-325mg 15tab take 1 Rom 2012 - tablet po Douglas, 03/18/ tid prn M.D. 2012 pain Keflex 01/25/ Hx Capsules 500mg 28cap 1 po qid x Rom 2012 - s 7days Douglas 01/25/ M.Maximus 2012 Bactrim DS 01/25/ Hx Tablets 800-160mg 14tab 1 po bid Rom 2012 - s for 7 days Douglas, 02/24/ M.DEmma 2013 Topiramate 12/12/ Hx Tablets 100mg 1 1/2 tabs Lance 2012 - at bedtime F. 10/22/ Yenifer, 2013 MKeith Vitamin C 12/12/ Hx Tablets 500mg 90tab 1 po qd Other 2012 - s Ordering 10/30/ Provider 2016 Miralax 12/12/ Hx Packet [id number] 1Mon 17 gm qd Other 2012 - prn Ordering 10/21/ Provider 2013 Torsemide 10/12/ Hx Tablets 10mg 1 po qd prn Lance 2009 - if wt F. 01/22/ >273 Yenifer 2009 M.DEmma Torsemide 10/09/ Hx Tablets 20mg 1 po qd Lance 2009 - till 10/12 F. 10/12/ Yenifer 2009 MEmmaDEmma Torsemide 10/02/ Hx Tablets 10mg 60tab 4 po qd am Lance 2009 - s of 10/08/09 F. 10/09/ Yenifer 2009 Jennifer Januvia 07/02/ Hx Tablets 50mg 90tab qd PO Lance 2008 - s F. 10/02/ Yenifer 2009 M.D. Ambien 09/19/ Hx Tablets 10mg. 1 PO QHS Lance 2007 - prn F. user, 2008 M.D. Metformin HCL 09/19/ Hx Tablets 500mg 1/2 PO bid 2007 - F. user, 2008 M.D. Omeprazole 03/23/ Hx Capsules 20mg 100ca 1 po qd Lance 2006 - DR king F. useflorin, 2010 M.D. Oxycodone-Apap 03/14/ Hx Tablets 5/325 2 bid 2006 - . user, 2010 M.D. Metformin HCL 03/14/ Hx Tablets 500mg 1/5 PO bid 2006 - . user, 2007 M.D. Indomethacin 03/14/ Hx Capsules 25mg 90cap prn Lance 2006 - s F. useflorin, 2008 M.D. Nexium 03/14/ Hx Capsules 40mg 90cap 1 po qd Lance 2006 - DR nieto . car, 2006 M.D. Zocor 11/14/ Hx Tablets 80mg 1 PO qd Lance 2006 - F. useflorin, 2006 M.D. Atenolol 11/08/ Hx Tablets 25mg 1/2 PO qd Lance 2006 - . useflorin, 2006 M.D. Crestor 08/30/ Hx Tablets 20mg 90tab 2 PO qd Lance 2006 - s F. 01/22/ user, 2009 M.D. KCL 06/28/ Hx Tablets 20Meq 30tab 1 PO qd Lance 2006 - s . useflorin, 2006 M.D. Clonazepam 08/25/ Hx Tablets 1mg 1 po in am Lance 2005 - and 1 in pm . useflorin, 2010 M.D. Zocor 08/25/ Hx Tablets 20mg one q hs Lance 2005 - F. Yenifer, 2006 M.D. Risperdal 08/25/ Hx Tablets 1mg 30tab One QHS Lance 2005 - s F. 03/27/ Mauser, 2007 M.D. Furosemide 08/25/ Hx Tablets 20mg 1 po qd Lance 2005 - F. 08/03/ Mauser, 2009 M.D. Ambien 08/25/ Hx Tablets 5mg 30tab Take One 2005 - s Tablet At F. 09/19/ Bedtime Mauser, 2007 M.D. Celexa 08/25/ Hx Tablets 40mg 30tab 2 qam Lance 2005 - s F. 10/02/ Mauser, 2009 M.D. Wellbutrin SR 08/25/ Hx Tablets 150mg 60tab 2 qam Lance 2005 - s F. 01/22/ Mauser, 2009 M.D. Indomethacin 08/25/ Hx Capsules 50mg 1 po qd Lance 2005 - F. 08/30/ Mauser, 2006 M.D. Atenolol 08/25/ Hx Tablets [...] 2003 - F. 12/09/ Mauser, 2003 M.D. [place] 3 Fish 10/08/ Hx Capsules 1 qd Lance Oil 2003 [...] qd Lance 2003 - s F. 12/08/ Mauser, 2004 M.D. Atenolol 09/01/ Hx Tablets 25mg 1 po qd Lance 2003 - F. 09/05/ Mauser, 2003 M.D. Paxil 09/01/ Hx Tablets 40mg 90tab 1 po qd prn Lance 2003 - s F. 10/08/ Mauser, 2003 M.D. Sonata 09/01/ Hx Capsules 10mg 30cap one qhs prn Lance 2003 - s sleep F. 12/09/ Mauser, 2003 M.D. Testosterone 09/01/ Hx Injection 2.5mg injection Lance 2003 - Injection one time / F. 08/30/ week Tasiauseflorin, 2006 M.D. Gaviscon 09/01/ Hx Capsules 2 tablets Lance 2003 - prn F. 12/09/ Mauser, 2003 M.D. Nitrolingual 09/01/ Hx Aerosol 0.4mg 1unit 1 PO qd prn Lance Pumpspray 2003 - s . 03/14/ user, 2006 M.Maximus Furosemide 08/31/ Hx Tablets 40mg 30tab 1 po qd Lance 2003 - s . 10/08/ user, 2003 MKeith Atenolol 08/31/ Hx Tablets 50mg 90tab 1 po qd Lance 2003 - . 09/01/ user, 2003 MEmmaDEmma Bextra 08/31/ Hx Tablets 20mg 30tab 1 po qd Lance 2003 - s . 10/08/ user, 2003 M.Maximus Trazodone 08/31/ Hx Tablets 100mg 30tab one daily Lance 2003 - s at hs 12/09/ use, 2003 Jennifer Percocet 08/31/ Hx Tablets 10mg;325 1 po q6h Lance 2003 - mg prn 12/08/ prescribed use, [address] Rodriguez schreiber Paxil CR 08/31/ Hx Tablets 25mg 2 po qd Lance 2003 - . 10/08/ user, 2003 Jennifer Buspirone 08/31/ Hx Tablets 15mg 30tab 1 po qd Lance 2003 - . 08/25/ user, 2005 Jennifer Levoxyl 08/31/ Hx Tablets 125mcg 30tab 1 PO qd Lance 2003 - s . 08/03/ user, 2009 Jennifer HCTZ 08/31/ Hx Tablets 25mg 30tab 1 po qd Lance 2003 - s . 12/08/ user, 2004 Jennifer Lipitor 08/31/ Hx Tablets 10mg 30tab 1 po qd Lance 2003 - s . 12/08/ user, 2004 MKeith Vitamins 08/31/ Hx Caplets 30cap 1 po qd Lance Multiple 2003. user, 2005 M.DEmma Aspirin 08/31/ Hx Chewtabs 81mg 1 po qd Lance 2003 - . 08/25/ user, 2005 Jennifer Risperdal 00/00/ Hx Tablets 1mg 1 PO qd Unknown 2009 Zolpidem 00/00/ Hx Tablets 10mg 30tab 1 tab po Unknown Tartrate s [facility] prn 2008 Amlodipine 00/00/ Hx Tablets 5mg 30tab 1 po qd Unknown Besylate 2011 Trazodone HCL 00/00/ Hx Tablets 50mg 30tab 1 po qhs Unknown s 2009 Lasix 00/00/ Hx Tablets 40mg 30tab 1 po qd Unknown s 2009 Levothyroxine 00/ Hx Tablets .15mg 30tab 1 po qd Unknown Sodium s 2009 Lasix /00/ Hx Tablets 60mg 1 po qd Unknown 2009 Topiramate 00/ Hx Tablets 200mg 1 po qhs Unknown 2012 Citalopram 00/ Hx Tablets 40mg 1 qam Unknown Hydrobromide 2010 Lasix /00/ Hx Tablets 40mg 1 po qd Unknown 2009 Minipress /00/ Hx Capsules 2mg 30cap 1 po at hs Unknown 2009 Sitagliptin 00/ Hx 100mg 1 po qd Unknown 2009 Zolpidem 00/ Hx Tablets 10mg 60tab 1 tab po Unknown Tartrate [facility] prn 2011 Januvia /00/ Hx Tablets 100mg 1 po qd Unknown 2009 Asa /00/ Hx 81mg one po qd Unknown 2010 Bupropion HCL 00/ Hx Tablets ER 300mg one po qd Unknown ER 0000 - 12HR 2011 Levothyroxine /00/ Hx Tablets 125mcg 1 po qd Unknown Sodium 2010 Lisinopril /00/ Hx Tablets 10mg 1 po qd Unknown 2010 Prazosin HCL /00/ Hx Capsules 2mg 30cap 1 po at hs Unknown s 2010 Risperidone /00/ Hx Tablets 2mg one half at Unknown 0000 - bedtime 2011 Sitagliptin 00/00/ Hx 100mg one po qd Unknown Phosphate - 2010 Rosuvastatin CA / Hx 40mg one po qd Unknown 0000 - 2010 Lisinopril 00/ Hx Tablets 5mg 1 po qd Unknown 0000 - 2015 Crestor / Hx Tablets 20mg 30tab 1 po qd Unknown 0000 - s 2012 Eszopliclone / Hx 2mg one po hs Unknown - 2011 Prazosin HCL / Hx Capsules 1mg 3 po qd Unknown - 2012 Clonazepam / Hx Tablets 0.5mg as directed Unknown - 2012 Amlodipine / Hx Tablets 2.5mg [...] tablet po Unknown 0000 - qhs 2013 Ibuprofen / Hx Tablets 200mg 100ta 3 tab po Unknown 0000 - bs daily will up to 2017 6 tab daily as needed Venlafaxine HCL / Hx Caps ER 75mg 1 by mouth Unknown ER 0000 - 24HR every day 2015 Zinc 15 / Hx Tablets 66mg 1 tablet by Unknown 0000 - mouth daily 2017 Lisinopril / Hx Tablets 5mg 2 by mouth Unknown 0000 - every day 2016 Meloxicam 00/ Hx Unknown 0000 - 2017 Medications Administered in Office Medication Date Status Form Strength Qnty SIG Indications Ordering Provider Depomedrol Administered Injection Tamela 40MG Balta Bailey M.D. Depomedrol Administered Injection Tamela 40MG 017 Jennifer Bailey Depomedrol Administered Injection Tamela 40MG 017 Jennifer Bailey Depomedrol Administered Injection Rom 80MG Evangelista Cole M.D. Depomedrol Administered Injection Rom 80MG 013 Jennifer Cole Vital Signs Date Vital Result Comment 09/11/2017 Height 70 inches 5'10" Weight 277.00 lb Heart Rate 88 /min BP Systolic 120 mmHg BP Diastolic 84 mmHg BMI (Body Mass Index) 39.7 kg/m2 09/04/2017 Height 70 inches 5'10" Weight 270.00 lb BP Systolic 140 mmHg BP Diastolic 76 mmHg Body Temperature 98.1 F Pain Level 4 BMI (Body Mass Index) 38.7 kg/m2 07/24/2017 Height 70 inches 5'10" Weight 270.00 [...] Test Date Test Result H/L Range Note CBC Auto Diff 09/04/2017 White Blood Count 9.1 10^3/uL 3.5-10.8 Red Blood Count 4.49 10^6/uL 4.0-5.4 Hemoglobin 14.0 g/dL 14.0-18.0 Hematocrit 41 % Low 42-52 Mean Corpuscular Volume 91 fL 80-94 Mean Corpuscular Hemoglobin 31 pg 27-31 Mean Corpuscular HGB Conc 34 g/dL 31-36 Red Cell Distribution Width 13 % 10.5-15 Platelet Count 221 10^3/uL 150-450 Mean Platelet Volume 10 um3 7.4-10.4 Abs Neutrophils 5.4 10^3/uL 1.5-7.7 Abs Lymphocytes 2.6 10^3/uL 1.0-4.8 Abs Monocytes 0.6 10^3/uL 0-0.8 Abs Eosinophils 0.4 10^3/uL 0-0.6 Abs Basophils 0.1 10^3/uL 0-0.2 Abs Nucleated RBC 0 10^3/uL Granulocyte % 59.8 % 38-83 Lymphocyte % 28.2 % 25-47 Monocyte % 7.1 % High 0-7 Eosinophil % 3.9 % 0-6 Basophil % 1.0 % 0-2 Nucleated Red Blood Cells % 0.1 Laboratory test finding 09/04/2017 C Reactive Protein 1.80 mg/L < 5.00 1 Erythrocyte Sed Rate 16 mm/Hr 0-40 Order 08/08/2017 Holter Monitor <pending> Laboratory test 11/03/2016 Point of Care 173 mg/dL High 74-106 2 finding Glucose Inr/Protime 10/28/2016 Inr 0.86 Low [...] Color Straw Urine Appearance Clear Urine Specific [place] 1.003 Low 1.010-1.030 Urine pH 6.0 5-9 [...] Egfr Non- 81.3 >60 Egfr 104.6 >60 3 Urine Culture And 10/28/2016 Urine Culture SEE RESULT BELOW 4 Sensitivities Creatinine 06/05/2013 Creatinine 1.20 mg/dL 0.50-1.40 Egfr Non- 60.6 >60 Egfr 77.9 >60 5 Laboratory test finding 06/05/2013 Troponin I 0 ng/mL 0-0.06 6 Vitamin B12 575 pg/mL 180-914 Folate > 24.8 ng/mL High 2-16 Blood Urea Nitrogen 21 mg/dL 6-24 Basic Metabolic Panel 01/11/2013 Sodium 139 mmol/L 133-145 Potassium 4.0 mmol/L 3.5-5.0 Chloride 110 mmol/L 101-111 Co2 Carbon Dioxide 24.0 mmol/L 22-32 Anion Gap 5.0 mmol/L 2-11 Glucose 117 mg/dL High 70-100 Blood Urea Nitrogen 12 mg/dL 6-24 Creatinine 1.10 mg/dL 0.50-1.40 BUN/Creatinine Ratio 10.9 8-20 Calcium 9.4 mg/dL 8.1-9.9 Egfr Non- 67.0 >60 Egfr 86.1 >60 7 CBC Auto Diff 01/11/2013 White Blood Count [...] Color Yellow Urine Appearance Clear Urine Specific [place] 1.013 1.010-1.030 Urine Esterase Negative Negative Urine Nitrate Negative Negative Urine Urobilinogen Negative E.U./dL Negative Urine Protein Negative mg/dL Negative Urine pH 6.5 5-9 Urine Blood Negative Negative Urine Ketones Negative mg/dL Negative Urine Bilirubin Negative Negative Urine Glucose Negative mg/dL Negative Comp Metabolic Panel 12/10/2012 Sodium 137 mmol/L [...] Egfr Non- 74.8 >60 Egfr 96.1 >60 8 Lipid Profile (Trig/Chol/HDL) 12/10/2012 Triglycerides 81 mg/dL 40-200 Cholesterol 115 mg/dL Less than 200 HDL Cholesterol 45 mg/dL 40-60 9 Cholesterol/HDL Ratio 2.6 Average 1-4.44 LDL Cholesterol 53.8 Less Than 100 10 Laboratory test finding 12/10/2012 Hemoglobin A1c 6.4 % High Less than 6.0 11 TSH (Thyroid Stimulating Horm) 2.77 miu/mL 0.34-5.60 Laboratory test finding 09/22/2011 TSH 1.78 MIU/ML 0.34-5.60 Hemoglobin A1c 6.2 % High Less Than 6.0 12 Lipid Profile (Trig/Chol/HDL) 09/22/2011 Triglyceride 94 mg/dL 40-200 Cholesterol 113 mg/dL Less Than 200 13 High Density Lipoprotein 37 mg/dL Low 40-60 14 Cholesterol/HDL Ratio 3.05 AVERAGE 1-4.97 Low Density Lipoprotein 57 mg/dL Less Than 100 15 Comp Metabolic Panel 09/22/2011 Sodium 142 mmol/L 135-145 Potassium 4.0 mmol/L 3.5-5.0 Chloride 113 mmol/L High 101-111 Co2 (Carbon Dioxide) 26.0 mmol/L 22-32 Anion Gap 3.0 mmol/L 2-11 16 Glucose 92 mg/dL 70-100 BUN 10 mg/dL 6-24 Creatinine 1.2 mg/dL 0.50-1.40 One Over Creatinine 0.83 BUN/Creatinine Ratio 8.3 8-20 Calcium 9.4 mg/dL 8.1-9.9 Total Protein 6.1 GM/DL Low 6.2-8.1 Albumin 4.0 GM/DL 3.2-5.2 Globulin 2.1 GM/DL 2-4 Albumin/Globulin Ratio 1.9 1-3 Bilirubin Total 0.9 mg/dL 0.4-1.5 17 Alkaline Phosphatase 67 U/L 39-117 Alt (SGPT) 30 U/L 17-63 Ast (Sgot) 20 U/L 12-42 eGFR Non- 60.8 > 60 eGFR 78.1 > 60 18 CBC No Diff 09/22/2011 White Blood Count 6.1 CUMM 4.8-10.8 Red Cell Count 4.42 CUMM Low 4.6-6.2 Hemoglobin 14.6 g/dL 14.0-18.0 Hematocrit 42 % 42-52 Mean Corpuscular Volume 94 um3 80-94 Mean Corpuscular Hemoglob 33 pg High 27-31 Mean Corpuscular HGB Cone 35 g/dL 32-36 Redcell Distribution WDTH 13 % 10.5-15 Platelet Count 165 CUMM 150-450 Mean Platelet Volume 9.8 um3 7.4-10.4 Laboratory test finding 01/14/2011 TSH 1.33 MIU/ML 0.34-5.60 Hemoglobin A1c 7.0 % High Less Than 6.0 19 Lipid Profile (Trig/Chol/HDL) 01/14/2011 Triglyceride 166 mg/dL 40-200 Cholesterol 126 mg/dL Less Than 200 20 High Density Lipoprotein 36 mg/dL Low 40-60 21 Cholesterol/HDL Ratio 3.50 AVERAGE 1-4.97 Low Density Lipoprotein 57 mg/dL Less Than 100 22 Comp Metabolic Panel 01/14/2011 Sodium 139 mmol/L 135-145 Potassium 3.9 mmol/L 3.5-5.0 Chloride 108 mmol/L 101-111 Co2 (Carbon Dioxide) 24.0 mmol/L 22-32 Anion Gap 7.0 mmol/L 2-11 23 Glucose 125 mg/dL High 70-100 BUN 12 mg/dL 6-24 Creatinine 1.20 mg/dL 0.50-1.40 One Over Creatinine 0.80 BUN/Creatinine Ratio 10.0 8-20 Calcium 9.6 mg/dL 8.1-9.9 Total Protein 6.5 GM/DL 6.2-8.1 Albumin 4.3 GM/DL 3.2-5.2 Globulin 2.2 GM/DL 2-4 Albumin/Globulin Ratio 2.0 1-3 Bilirubin Total 0.7 mg/dL 0.4-1.5 24 Alkaline Phosphatase 73 U/L 39-117 Alt (SGPT) 48 U/L 17-63 Ast (Sgot) 37 U/L 12-42 eGFR Non- 61.0 > 60 eGFR 78.4 > 60 25 CBC No Diff 01/14/2011 White Blood Count 8.3 CUMM 4.8-10.8 Red Cell Count 4.59 CUMM Low 4.6-6.2 Hemoglobin 14.4 g/dL 14.0-18.0 Hematocrit 43 % 42-52 Mean Corpuscular Volume 93 um3 80-94 Mean Corpuscular Hemoglob 31 pg 27-31 Mean Corpuscular HGB Cone 34 g/dL 32-36 Redcell Distribution WDTH 13 % 10.5-15 Platelet Count 172 CUMM 150-450 Mean Platelet Volume 9.8 um3 7.4-10.4 Basic Metabolic Panel 07/14/2006 One Over Creatinine 0.83 26 Anion Gap 7.0 mmol/L 2-11 26, 27 BUN 13 mg/dL 6-24 26 Calcium 9.5 mg/dL 8.7-10.2 26 Chloride 107 mmol/L 101-111 26 Co2 (Carbon Dioxide) 28.0 mmol/L 22-32 26 Glucose 93 mg/dL 70-105 26 Potassium 4.5 mmol/L 3.5-5.0 26 Sodium 142 mmol/L 135-145 26 BUN/Creatinine Ratio 10.8 8-20 26 Creatinine 1.2 mg/dL 0.5-1.4 26 Laboratory test finding 07/14/2006 Magnesium 2.2 mg/dL 1.7-2.6 26 1 Acute inflammation: >10.00 2 Procurement Consultant: [id number] 3 Because ethnic data is not always readily [...] 15-29 5 Kidney failure <15 (or dialysis) 4 SEE RESULT BELOW Name: MARVIN TALAVERASYLVIE Walker : [address]: Tamela Bailey MD Acct: [id number] Unit: [id number] AGE: 71 Location: [facility] Re10/28/16 SEX: M Status: REG REF SPEC: [id number] KATYA: 10/28/[address]: Tamela Bailey MD REQ: [id number] RECD: 10/28/16 STATUS: COMP _ SOURCE: URINE SPDESC: ORDERED: Urine Culture QUERIES: Urine Source: Random Procedure Result Reported Site Urine Culture Final 10/30/16- 0824 ML No Growth (<1,000 CFU/mL) * ML - MAIN LAB (PSC1) . END OF REPORT * ML=Testing performed at Main Lab DEPARTMENT OF PATHOLOGY, [address] [place] [address] Kel Owen M.D. Director [facility] # [id number] 5 Because ethnic data is not always [...] 5 Kidney failure <15 (or dialysis) 6 Reference Range and Interpretation: TnI (ng/mL) Interpretation Less Than 0.06 ng/mL Not supportive of diagnosis of HI 0.06 - 0.50 ng/mL Indeterminate: suggest serial studies if clinically indicated. Greater than 0.5 ng/mL Consistent with diagnosis of HI 7 Because ethnic data is not always readily [...] 15-29 5 Kidney failure <15 (or dialysis) 8 Because ethnic data is not always readily [...] 15-29 5 Kidney failure <15 (or dialysis) 9 HDL Interpretation: Undesirable: High Risk: Less than 40 mg/dL Desirable: Low Risk: Greater than 60 mg/dL 10 LDL Interpretation: Low Risk Optimal Level: LDL Less than 100 mg/dL Near or Above Optimal: LDL 100-129 mg/dL Borderline High Risk: LDL 130-159 mg/dL High Risk: LDL 160-189 mg/dL Very High Risk: LDL Greater than 189 mg/dL 11 Therapeutic target for the treatment of diabetes Mellitus patients is <7% HBA1C, and in selective patients <6.0%.Please refer to [place] [employer] Diabetic care guidelines for further information. 12 THERAPEUTIC TARGET FOR THE TREATMENT OF DIABETES MELLITUS PATIENTS IS <7% HBA1C, AND IN SELECTIVE PATIENTS <6.0%. PLEASE REFER TO [place] [employer] DIABETIC CARE GUIDELINES FOR FURTHER INFORMATION. 13 CHOLESTEROL INTERPRETATION: Desirable: Less than 200 MG/DL Borderline-High Risk: 200-239 MG/DL High-Risk: 240 MG/DL and over 14 HDL INTERPRETATION: Undesirable: High Risk: Less than 40 MG/DL Desirable: Low Risk: Greater than 60 MG/DL 15 LDL INTERPRETATION: Low Risk Optimal Level: LDL Less than 100 MG/DL Near or Above Optimal: LDL 100-129 MG/DL Borderline High Risk: LDL 130-159 MG/DL High Risk: LDL 160-189 MG/DL Very High Risk: LDL Greater than 189 MG/DL 16 Anion gap measurement may be of limited value in the presence of any alkalosis, especially in a combined acid base disorder. . 17 A metabolite of Naproxen, O-desmethylnaproxen, has been shown to interfere with the Jendrassik-Muse method for measuring total bilirubin. Samples from patients who have taken Naproxen have shown spurious elevation in total bilirubin levels. 18 Because ethnic data is not always readily [...] 15-29 5 Kidney failure <15 (or dialysis) 19 THERAPEUTIC TARGET FOR THE TREATMENT OF DIABETES MELLITUS PATIENTS IS <7% HBA1C, AND IN SELECTIVE PATIENTS <6.0%. PLEASE REFER TO [place] [employer] DIABETIC CARE GUIDELINES FOR FURTHER INFORMATION. 20 CHOLESTEROL INTERPRETATION: Desirable: Less than 200 MG/DL Borderline-High Risk: 200-239 MG/DL High-Risk: 240 MG/DL and over 21 HDL INTERPRETATION: Undesirable: High Risk: Less than 40 MG/DL Desirable: Low Risk: Greater than 60 MG/DL 22 LDL INTERPRETATION: Low Risk Optimal Level: LDL Less than 100 MG/DL Near or Above Optimal: LDL 100-129 MG/DL Borderline High Risk: LDL 130-159 MG/DL High Risk: LDL 160-189 MG/DL Very High Risk: LDL Greater than 189 MG/DL 23 Anion gap measurement may be of limited value in the presence of any alkalosis, especially in a combined acid base disorder. . 24 A metabolite of Naproxen, O-desmethylnaproxen, has been shown to interfere with the Jendrassik-Muse method for measuring total bilirubin. Samples from patients who have taken Naproxen have shown spurious elevation in total bilirubin levels. 25 Because ethnic data is not always readily [...] 15-29 5 Kidney failure <15 (or dialysis) 26 FASTING 27 Anion gap measurement may be of limited value in the presence of any alkalosis, especially in a combined acid base disorder. . Procedures Date CPT Code Description Status 08/09/2017 32685 Holter Monitor Review (24 hr)dr michaels & blaine Completed only 08/08/2017 41594 ECG Monitor/Recording W/Visual Superimposition Scanning Completed 07/13/2017 30503 EKG Tracing & Interpretation Completed 05/22/2017 74854 Inject/Drain Joint/Bursa Major Completed 03/01/2017 01931 Inject/Drain Joint/Bursa Major Completed 11/03/2016 28067 Arthroscopy,Knee,Meniscectomy Media & Lateral Completed 11/03/2016 47319 Arthroscopy,Knee,Meniscectomy Media & Lateral Completed 11/01/2016 45090 EKG Tracing & Interpretation Completed 09/26/201608556 Inject/Drain Joint/Bursa Major Completed 05/16/2016 71209 EKG Tracing & Interpretation Completed 04/29/2015 12843 EKG Tracing & Interpretation Completed 05/29/2014 29604 EKG Tracing & Interpretation Completed 01/15/2014 70622 ECHO Stress Test Incl Perf Contiuous ekg Monitoring Completed W/Phys Superv 11/26/2013 82160 Holter Monitoring 24 HR New Completed 11/08/2013 67929 ECHO Transthoracic, Real-Time 2D With Doppler And Color Completed Flow 10/24/2013 69519 Rad Shoulder Comp, Min. 2 Views Completed 10/24/2013 55221 Rad Shoulder Comp, Min. 2 Views Completed 10/22/2013 61748 EKG Tracing & Interpretation Completed 07/18/2013 65069 Rad Shoulder Comp, Min. 2 Views Completed 06/17/2013 65007 EKG Tracing & Interpretation Completed 01/31/2013 43292 Rad Shoulder Comp, Min. 2 Views Completed 01/18/2013 40935 Arthroplasty,Total Shoulder Replacement (TSR) Completed 01/03/2013 09242 EKG, Interpretation Only Completed 12/12/2012 46594 EKG Tracing & Interpretation Completed 11/27/201247661 Inject/Drain Joint/Bursa Major Completed 11/27/201290952 Inject/Drain Joint/Bursa Major Completed 02/09/2012 18128 EKG Tracing & Interpretation Completed 01/25/2012 41742 Nerve Conduction, Sensory Completed 01/25/2012 91235 Nerve Conduction, Motor W/O F-Wave Study Completed 09/19/2011 19262 ECHO Stress Test Incl Perf Contiuous ekg Monitoring Completed W/Phys Superv 09/15/2011 65527 EKG Tracing & Interpretation Completed 09/08/2011 61257 Rad Shoulder Comp, Min. 2 Views Completed 09/08/2011 99788 Rad Shoulder Comp, Min. 2 Views Completed 01/27/2011 77978 EKG Tracing & Interpretation Completed 01/22/2010 34567 EKG Tracing & Interpretation Completed 11/30/2009 49061 Mobile Cardiovascular Telemetry Over 24 HR Up To 30 Completed Days 10/23/2009 38029 Mobile Cardiovascular Telemetry Over 24 HR Up To 30 Completed Days 10/14/2009 69553 ECHO Stress Test Incl Perf Contiuous ekg Monitoring Completed W/Phys Superv 10/08/2009 26806 Holter Monitor Interpretation Completed 10/02/2009 49128 EKG Tracing & Interpretation Completed 06/25/2009 10279 Stress ECHO Interpretation/Report Hospital Completed 06/25/2009 49188 Treadmill Interp/Report Only Completed 06/25/2009 97923 Stress Test Supervsn W/Out I/R Completed 06/18/2009 61650 Treadmill Interp/Report Only Completed 06/18/2009 82091 Stress Test Supervsn W/Out I/R Completed 05/25/2009 16066 EKG Tracing & Interpretation Completed 07/02/2008 33992 EKG Tracing & Interpretation Completed 07/02/2008 73262 EKG Tracing & Interpretation Completed 09/20/2007 58604 EKG Tracing & Interpretation Completed 03/14/2007 51974 EKG Tracing & Interpretation Completed 12/06/2006 91626 EKG Tracing & Interpretation Completed 12/06/2006 54732 EKG Tracing & Interpretation Completed 11/14/2006 05301 EKG Tracing & Interpretation Completed 11/14/2006 70086 EKG Tracing & Interpretation Completed 06/28/2006 15624 EKG Tracing & Interpretation Completed 08/25/2005 70111 EKG Tracing & Interpretation Completed 12/08/2004 76901 EKG Tracing & Interpretation Completed 09/02/2003 75898 EKG Tracing & Interpretation Completed 08/26/2003 54284 Color Doppler Completed 08/26/2003 23198 Pulse Doppler & Continuous Wave Completed 08/26/2003 46858 Echocardiogram Completed Encounters Type Date Location Provider CPT E/M Dx Office Visit 07/24/2017 [facility] Tam[facility] Bailey M.D. 61831 M25.561 8:30a Of [place] M25.461 M17.11 Office Visit 07/13/2017 11:00a [facility] [address], [address] I10 Shreyas Rodriguez I71.2 R00.1 E11.9 R42 I42.9 R94.31 Office Visit 05/22/2017 9:30a [facility] Tamela Bailey M.D. 82733 M25.561 [place] M25.461 M17.11 Office Visit 03/10/2017 11:00a [facility] Tamela Bailey M.D. 91132 M25.561 [facility] M25.461 M17.11 S83.241D Office Visit 03/01/2017 12:00p [facility] Tamela Bailey M.D. 49301 M25.561 [facility] M25.461 M17.11 Office Visit 11/01/2016 1:40p [facility] [address], [address] M25.Aubrey Rodriguez I10 I71.2 R00.1 E66.9 I45.10 Z01.810 Office Visit 10/07/2016 1:00p [facility] Tamela Bailey M.D. 93525 M25.561 [facility] M25.461 M17.11 S83.241D Office Visit 10/03/2016 9:15a [facility] Tamela Bailey M.D. 31794 M25.561 [facility] M25.461 M17.11 Office Visit 09/26/2016 1:00p [facility] Tamela Bailey M.D. 59804 M25.561 [facility] M25.461 M17.11 Office Visit 2016 8:30a [facility] JAY Gordon 55332 E66.9 I10 I71.2 Office Visit 06/15/2016 8:30a [facility] JAY Gordon 16357 I10 E66.9 I71.2 Office Visit 05/16/2016 9:00a [facility] [address] M.D. 43318 I71.2 I10 E66.9 R00.1 E78.00 Office Visit 04/29/2015 9:00a [facility] [address] M.D. 32449 I49.5 I71.2 I10 E66.9 Office Visit 05/29/2014 10:00a [facility] [address] M.D. 56986 368.2 427.81 441.2 428.32 401.1 Office Visit 01/15/2014 1:30p [facility] [address], [address]1438 786.59 M.D. 368.2 427.81 Office Visit 12/31/2013 8:00a [facility] Rom Cole M.D. 59448 718.81 C.[facility] Office Visit 10/31/2013 1:30p [facility] Cole M.D. 41732 719.41 C.[facility] Office Visit 10/24/2013 9:00a [facility] Nathalia Galan 01201 719.41 [facility] RPA-C Office Visit 10/22/2013 9:00a [facility] [address] [address] 401.1 M.D. 441.2 427.81 Office Visit 07/18/2013 11:30a [facility] Cole M.D. 38551 716.91 C.M[facility] Office Visit 06/17/2013 3:20p [facility] [address] [address] 441.2 M.D. 401.1 427.81 786.59 Office Visit 05/21/2013 9:00a [facility] M.D. 37635 716.81 C.M[facility] Office Visit 12/12/2012 9:20a [facility] [address], [address]39 716.81 M.D. 441.2 428.32 794.31 401.1 427.81 327.26 Office Visit 11/27/2012 9:15a [facility] M.D. 50385 716.81 C.M.A. 716.91 716.91 719.41 Office Visit 02/09/2012 9:00a [facility] [address] M.D. 87697 354.0 272.0 786.50 441.2 Office Visit 01/25/2012 3:00p Jacoby/Carrington Brito 60728 354.0 [facility] Shreyas Rodriguez Office Visit 09/15/2011 2:40p [facility] [address] 427.81 428.32 441.2 794.31 Office Visit 09/08/2011 9:00a [facility] Rom Cole M.D. 18280 716.91 C.M[facility] Office Visit 01/27/2011 2:40p [facility] [address] [address] 786.50 M.D. 272.0 401.1 427.81 Office Visit 01/22/2010 3:00p [facility] [address] [address] 427.81 M.D. 786.50 272.0 401.1 Office Visit 10/14/2009 9:30a [facility] [address] [address] 786.50 M.D. 272.0 401.1 428.32 278.01 427.81 Office Visit 10/02/2009 1:40p [facility] [address] [address] 786.50 M.D. 272.0 401.1 428.32 278.01 782.3 Office Visit 05/25/2009 9:30a [facility] [address] M.D. 93011 272.0 401.1 428.32 278.01 427.81 441.2 Office Visit 07/02/2008 3:20p [facility] [address] [address] 786.50 M.D. 272.0 401.1 428.32 Office Visit 09/20/2007 9:20a [facility] [address] [address]93 786.50 M.D. 272.0 401.1 428.32 278.01 Office Visit 03/14/2007 8:40a [facility] [address] [address] 786.50 M.D. 272.0 401.1 428.32 278.01 Office Visit 12/06/2006 2:40p [facility] [address] [address] 427.81 M.D. 401.1 272.0 Office Visit 11/14/2006 3:20p [facility] [address] M.D. 45798 780.4 427.81 401.1 Office Visit 08/30/2006 11:00a [facility] [address], 6[address]03 786.50 M.D. 401.1 278.01 Office Visit 06/28/2006 3:40p [facility] [address], 08966 428.32 M.D. 786.50 401.1 272.0 Office Visit 08/25/2005 10:20a [facility] [address], 37895 428.32 M.D. 401.1 278.01 Office Visit 12/08/2004 10:40a [facility] [address], 49891 786.50 M.D. 278.01 401.1 Office Visit 12/10/2003 9:00a [facility] [address] M.D. 70733 272.0 786.59 401.1 V58.69 Office Visit 10/09/2003 2:20p [facility] [address] M.D. 31588 428.0 786.59 Office Visit 09/02/2003 1:40p [facility] [address] M.D. 76127 428.0 786.50 272.0 780.7 Plan of Care Future Appointment(s):09/21/2017 1:30 pm - [facility] George [facility]09/21/2017 1:30 pm - Enzo Adler PA-C at [facility]09/21/2017 1:30 pm - JAY Causey at [facility]09/21/2017 1:30 pm - Tamela Bailey M.D. at [facility]10/04/2017 9:30 am - Tamela Bailey M.D. at [facility]09/18/2017 3:40 pm - [address] [facility] M.D. at [facility]09/11/2017 - Tamela Bailey M.D.M25.561 Pain in right kneeFollow up:Follow up: 2 weeks after kckksedD78.461 Effusion, right kneeM17.11 Unilateral primary osteoarthritis, right knee
--- OUTSIDE RECORDS SUMMARY | 2017-09-21 09:59 | XMS REPORT ---
:1945 External Reference #:[id number] Author Organization [facility] Address [address] [address] Phone [phone] Care Team Providers Name Role Phone Aba Avitia MD Primary Care Physician Unavailable Payers Type Date Identification Numbers Payment Provider Subscriber Medicare Primary Effective: Policy Number: Medicare Faisal Artish 1998 [id number] PayID: [id number] [address] [place] [address] Mediparadox Part B Effective: 2003 Policy Number: Inc. Abdulaziz Faisal Artish [id number] Expires: 2014 Group Number: LO [id number] PayID: [place] [address] Commercial Policy Number: [id number] Lifetime Benefit Solution Faiasl Aaron Ilan Group Number: [id number] [address] PayID: [place] [address] Problems Date Description Provider Status Onset: 09/15/2011 [...] Form Strength Qnty SIG Indications Ordering Provider Meloxicam 09/04/ Active Tablets 15mg 30tab 1 by mouth M25.552 Taemla 2017 s every day Jennifer Bailey Wallace 05/11/ Active Tablets 5-325mg 60tab 1 tabs by Tamela 2016 s mouth every Leo, 12 hours M.DEmma Glimepiride 04/21/ Active Tablets 1mg Take One Sadi, 2016 Tablet By MD Aba Mouth Two Times A Day Amlodipine 06/15/ Active Tablets 5mg 90tab 1 by mouth Lance Besaannda 2015 s every day [address] M.D. [...] 2015 - s every day F. 06/15/ Yenifer 2016 M.DEmma Crestor 05/28/ Hx Tablets 20mg 1 by mouth Other 2014 - every day Ordering 05/29/ Provider 2014 Crestor 05/28/ Hx Tablets 10mg 1 by mouth Other 2014 - every day Ordering 04/28/ Provider 2015 Tramadol HCL 10/24/ Hx Tablets 50mg 40tab 1 tab every Rom 2014 - s 6 hours as Young, 10/24/ needed pain M.D. 2013 Naproxen 10/24/ Hx Tablets 500mg 60tab 1 tab by Rom 2014 - s mouth twice Young, 01/15/ a day. Take M.D. 2013 with food. Crestor 06/17/ Hx Tablets 10mg 1 by mouth Lance 2012 - every day F. 05/29/ Yenifer, 2013 M.D. Clonazepam 06/17/ Hx Tablets 1mg 1 tablet po Lance 2012 - Am, 2 F. 06/14/ tablet po Yenifer, 2015 PM M.D. Percocet 01/25/ Hx Tablets 5-325mg 15tab take 1 Rom2012 - tablet po , 03/18/ tid prn M.DEmma 2012 pain Keflex 01/25/ Hx Capsules 500mg 28cap 1 po qid x Rom 2012 - 7days Douglas 01/25/ M.Maximus 2012 Bactrim DS 01/25/ Hx Tablets 800-160mg 14tab 1 po bid Rom 2012 - s for 7 days Douglas 02/24/ Jennifer 2013 Topiramate 12/12/ Hx Tablets 100mg 1 1/2 tabs Lance 2012 - at bedtime F. 10/22/ Yenifer, 2013 MKeith Vitamin C 12/12/ Hx Tablets 500mg 90tab 1 po qd Other 2012 - s Ordering 10/30/ Provider 2016 Miralax 12/12/ Hx Packet [id number] 1Mon 17 gm qd Other 2012 - prn Ordering 10/21/ Provider 2014 Torsemide 10/12/ Hx Tablets 10mg 1 po qd prn Lance 2009 - if wt F. 01/22/ >273 Yenifer 2009 M.D. Torsemide 10/09/ Hx Tablets 20mg 1 po qd Lance 2009 - till 10/12 F. 10/12/ Yenifer, 2009 M.D. Torsemide 10/02/ Hx Tablets 10mg 60tab 4 po qd am Lance 2009 - s of 10/08/09 F. 10/09/ Yenifer, 2009 Jennifer Januvia 07/02/ Hx Tablets 50mg 90tab qd PO Lance 2008 - s F. 10/02/ Yenifer, 2009 MKeith Ambien 09/19/ Hx Tablets 10mg. 1 PO QHS Lance 2007 - prn F. 05/25/ Yenifer, 2008 MKeith Metformin HCL 09/19/ Hx Tablets 500mg 1/2 PO bid Lance 2007 - F. 07/02/ useflorin, 2008 M.D. Omeprazole 03/23/ Hx Capsules 20mg 100ca 1 po qd Lance 2006 - DR king F. user, 2010 M.D. Oxycodone-Apap 03/14/ Hx Tablets 5/325 2 bid Lance 2006 - F. user, 2010 M.D. Metformin HCL 03/14/ Hx Tablets 500mg 1/5 PO bid Lance 2006 - F. 09/19/ useflorin, 2007 M.D. Indomethacin 03/14/ Hx Capsules 25mg 90cap prn Lance 2006 - s F. Tasiauseflorin, 2008 M.D. Nexium 03/14/ Hx Capsules 40mg 90cap 1 po qd Lance 2006 - DR nieto . Yenifer, 2006 M.D. Zocor 11/14/ Hx Tablets 80mg 1 PO qd Lance 2006 - F. Yenifer, 2006 M.D. Atenolol 11/08/ Hx Tablets 25mg 1/2 PO qd Lance 2006 - F. Yenifer, 2006 M.D. Crestor 08/30/ Hx Tablets 20mg 90tab 2 PO qd Lance 2006 - s . user, 2009 M.D. KCL 06/28/ Hx Tablets 20Meq 30tab 1 PO qd Lance 2006 - s . Tasiauseflorin, 2006 M.D. Clonazepam 08/25/ Hx Tablets 1mg 1 po in am Lance 2005 - and 1 in pm . 01/27/ useflorin, 2010 M.D. Zocor 08/25/ Hx Tablets 20mg one q hs Lance 2005 - F. 11/14/ Tasiauseflorin, 2006 M.D. Risperdal 08/25/ Hx Tablets 1mg 30tab One QHS Lance 2005 - s F. Tasiauseflorin, 2007 M.D. Furosemide 08/25/ Hx Tablets 20mg 1 po qd Lance 2005 - F. Tasiauseflorin, 2009 M.Toya. Ambien 08/25/ Hx Tablets 5mg [...] Hx Tablets 25mg 90tab 1 PO qd Lnace 2005 - s F. 11/08/ Mauser, 2006 [...] 2003 - F. 12/09/ Mauser, 2003 M.D. [place] 3 Fish 10/08/ Hx Capsules 1 qd [...] prn Lance 2003 - s F. 10/08/ user, 2003 M.D. Sonata 09/01/ Hx Capsules 10mg 30cap one qhs prn Lance 2003 - s sleep F. 12/09/ user, 2003 M.D. Testosterone 09/01/ Hx Injection 2.5mg injection Lance 2003 - Injection one time / F. 08/30/ week Mauser, 2006 M.D. Gaviscon 09/01/ Hx Capsules 2 tablets Lance 2003 - prn . 12/09/ user, 2003 M.D. Nitrolingual 09/01/ Hx Aerosol 0.4mg 1unit 1 PO qd prn Lance Pumpspray 2003 - s F. 03/14/ Mauser, 2006 M.D. Furosemide 08/31/ Hx Tablets 40mg 30tab 1 po qd Lance 2003 - s . 10/08/ user, 2003 Eve.D. Atenolol 08/31/ Hx Tablets 50mg 90tab 1 po qd Lance 2003 - s . user, 2003 Eve.D. Bextra 08/31/ Hx Tablets 20mg 30tab 1 po qd Lance 2003 - s . 10/08/ user, 2003 Chet. Trazodone 08/31/ Hx Tablets 100mg 30tab one daily Lance 2003 - s at hs . user, 2003 Eve.D. Percocet 08/31/ Hx Tablets 10mg;325 1 po q6h Lance 2003 - mg prn 12/08/ prescribed use, [address] Jennifer schreiber Paxil CR 08/31/ Hx Tablets 25mg 2 po qd Lance 2003 - . use, 2003 Eve.Maximus Buspirone 08/31/ Hx Tablets 15mg 30tab 1 po qd Lance 2003 - s . 08/25/ user, 2005 M.D. Levoxyl 08/31/ Hx Tablets 125mcg 30tab 1 PO qd Lance 2003 - s . user, 2009 M.D. HCTZ 08/31/ Hx Tablets 25mg 30tab 1 po qd Lance 2003 - s . 12/08/ user, 2004 M.D. Lipitor 08/31/ Hx Tablets 10mg 30tab 1 po qd Lance 2003 - s . user, 2004 M.D. Vitamins 08/31/ Hx Caplets 30cap 1 po qd Lance Multiple 2003 - s . 08/25/ user, 2005 M.D. Aspirin 08/31/ Hx Chewtabs 81mg 1 po qd Lance 2003 - . user, 2005 M.D. Risperdal / Hx Tablets 1mg 1 PO qd Unknown 0000 - 2009 Zolpidem / Hx Tablets 10mg 30tab 1 tab po Unknown Tartrate 0000 - s qhs prn 2008 Amlodipine 00/00/ Hx Tablets 5mg 30tab 1 po qd Unknown Besylate 0000 - s 2011 Trazodone HCL 00/00/ Hx Tablets 50mg 30tab 1 po qhs Unknown - s 2009 Lasix 00/00/ Hx Tablets 40mg [...] 30cap 1 po at hs Unknown s 2009 Sitagliptin 00/00/ Hx 100mg 1 po qd Unknown 2009 Zolpidem /00/ Hx Tablets 10mg 60tab 1 tab po Unknown Tartrate - s qhs prn 2011 Januvia 00/00/ Hx Tablets 100mg 1 po qd Unknown 2009 Asa 00/00/ Hx 81mg one po qd Unknown 2010 Bupropion HCL 00/00/ Hx Tablets ER 300mg one po qd Unknown ER 0000 - 12HR 2011 Levothyroxine /00/ Hx Tablets 125mcg 1 po qd Unknown Sodium 2010 Lisinopril /00/ Hx Tablets 10mg 1 po qd Unknown 2010 Prazosin HCL 00/00/ Hx Capsules 2mg 30cap 1 po at hs Unknown 0000 - s 2010 Risperidone 00/00/ Hx Tablets 2mg one half at Unknown 0000 - bedtime 2011 Sitagliptin 00/00/ Hx 100mg one po qd Unknown Phosphate - 2010 Rosuvastatin CA 00/00/ Hx 40mg one po qd Unknown 2010 Lisinopril /00/ Hx Tablets 5mg 1 po qd Unknown 0000 - 2015 Crestor // Hx Tablets 20mg 30tab 1 po qd Unknown 0000 - s 2012 Eszopliclone / Hx 2mg one po hs Unknown 0000 - 2011 Prazosin HCL / Hx Capsules [...] 72HR ts patch once 03/18/ every 3 2013 days Topiramate / Hx Tablets 25mg 1 tablet po Unknown 0000 - qhs 2013 Venlafaxine HCL / Hx Caps ER 75mg 1 by mouth Unknown ER 0000 - 24HR every day 2015 Zinc 15 / Hx Tablets 66mg 1 tablet by Unknown 0000 - mouth daily 2017 Lisinopril / Hx Tablets 5mg 2 by mouth Unknown 0000 - every day 2016 Meloxicam / Hx Unknown 0000 - 2017 Medications Administered in Office Medication Date Status Form Strength Qnty SIG Indications Ordering Provider Depomedrol Administered Injection Tamela 40MG Balta Bailey M.D. Depomedrol Administered Injection Tamela 40MG Balta Bailey M.D. Depomedrol Administered Injection Tamela 40MG Balta Bailey M.D. Depomedrol Administered Injection Rom 80MG Evangelista Cole M.D. Depomedrol Administered Injection Rom 80MG Evangelista Cole M.D. Vital Signs Date Vital Result Comment 09/04/2017 Height 70 inches 5'10" Weight 270.00 [...] Test Date Test Result H/L Range Note Order 08/08/2017 Holter Monitor <pending> Laboratory test [...] Color Straw Urine Appearance Clear Urine Specific [place] 1.003 Low 1.010-1.030 Urine pH 6.0 5-9 [...] Color Yellow Urine Appearance Clear Urine Specific [place] 1.013 1.010-1.030 Urine Esterase Negative Negative Urine [...] Egfr Non- 74.8 >60 Egfr 96.1 >60 7 Lipid Profile (Trig/Chol/HDL) 12/10/2012 Triglycerides 81 mg/dL 40-200 Cholesterol 115 mg/dL Less than 200 HDL Cholesterol 45 mg/dL 40-60 8 Cholesterol/HDL Ratio 2.6 Average 1-4.44 LDL Cholesterol 53.8 Less Than 100 9 Laboratory test finding 12/10/2012 Hemoglobin A1c 6.4 % High Less than 6.0 10 TSH (Thyroid Stimulating Horm) 2.77 miu/mL 0.34-5.60 Laboratory test finding 09/22/2011 TSH 1.78 MIU/ML 0.34-5.60 Hemoglobin A1c 6.2 % High Less Than 6.0 11 Lipid Profile (Trig/Chol/HDL) 09/22/2011 Triglyceride 94 mg/dL 40-200 Cholesterol 113 mg/dL Less Than 200 12 High Density Lipoprotein 37 mg/dL Low 40-60 13 Cholesterol/HDL Ratio 3.05 AVERAGE 1-4.97 Low Density Lipoprotein 57 mg/dL Less Than 100 14 Comp Metabolic Panel 09/22/2011 Sodium 142 mmol/L 135-145 Potassium 4.0 mmol/L 3.5-5.0 Chloride 113 mmol/L High 101-111 Co2 (Carbon Dioxide) 26.0 mmol/L 22-32 Anion Gap 3.0 mmol/L 2-11 15 Glucose 92 mg/dL 70-100 BUN 10 mg/dL 6-24 Creatinine 1.2 mg/dL 0.50-1.40 One Over Creatinine 0.83 BUN/Creatinine Ratio 8.3 8-20 Calcium 9.4 mg/dL 8.1-9.9 Total Protein 6.1 GM/DL Low 6.2-8.1 Albumin 4.0 GM/DL 3.2-5.2 Globulin 2.1 GM/DL 2-4 Albumin/Globulin Ratio 1.9 1-3 Bilirubin Total 0.9 mg/dL 0.4-1.5 16 Alkaline Phosphatase 67 U/L 39-117 Alt (SGPT) 30 U/L 17-63 Ast (Sgot) 20 U/L 12-42 eGFR Non- 60.8 > 60 eGFR 78.1 > 60 17 CBC No Diff 09/22/2011 White Blood Count [...] A1c 7.0 % High Less Than 6.0 18 Lipid Profile (Trig/Chol/HDL) 01/14/2011 Triglyceride 166 mg/dL 40-200 Cholesterol 126 mg/dL Less Than 200 19 High Density Lipoprotein 36 mg/dL Low 40-60 20 Cholesterol/HDL Ratio 3.50 AVERAGE 1-4.97 Low Density Lipoprotein 57 mg/dL Less Than 100 21 Comp Metabolic Panel 01/14/2011 Sodium 139 mmol/L 135-145 Potassium 3.9 mmol/L 3.5-5.0 Chloride 108 mmol/L 101-111 Co2 (Carbon Dioxide) 24.0 mmol/L 22-32 Anion Gap 7.0 mmol/L 2-11 22 Glucose 125 mg/dL High 70-100 BUN 12 mg/dL 6-24 Creatinine 1.20 mg/dL 0.50-1.40 One Over Creatinine 0.80 BUN/Creatinine Ratio 10.0 8-20 Calcium 9.6 mg/dL 8.1-9.9 Total Protein 6.5 GM/DL 6.2-8.1 Albumin 4.3 GM/DL 3.2-5.2 Globulin 2.2 GM/DL 2-4 Albumin/Globulin Ratio 2.0 1-3 Bilirubin Total 0.7 mg/dL 0.4-1.5 23 Alkaline Phosphatase 73 U/L 39-117 Alt (SGPT) 48 U/L 17-63 Ast (Sgot) 37 U/L 12-42 eGFR Non- 61.0 > 60 eGFR 78.4 > 60 24 CBC No Diff 01/14/2011 White Blood Count [...] 07/14/2006 Magnesium 2.2 mg/dL 1.7-2.6 25 1 Parts Identifier: [id number] 2 Because ethnic data is not always [...] dialysis) 3 SEE RESULT BELOW Name: FAISAL TALAVERA : [address]: Tamela Bailey MD Acct: [id number] Unit: [id number] AGE: 71 Location: [facility] Re10/28/16 SEX: M Status: REG REF SPEC: [id number] KATYA: 10/28/[address] [facility] [address]: Tamela Bailey MD REQ: [id number] RECD: 10/28/16 STATUS: COMP _ SOURCE: URINE SPDESC: ORDERED: Urine Culture QUERIES: Urine Source: Random Procedure Result Reported Site Urine Culture Final 10/30/16- 823 ML No Growth (<1,000 CFU/mL) * ML - MAIN LAB (PSC1) . END OF REPORT * ML=Testing performed at Main Lab DEPARTMENT OF PATHOLOGY, [address] [place] [address] Kel Owen M.D. Director [facility] # [id number] 4 Reference Range and Interpretation: TnI (ng/mL) Interpretation Less Than 0.06 ng/mL Not supportive of diagnosis of MA 0.06 - 0.50 ng/mL Indeterminate: suggest serial studies if clinically indicated. Greater than 0.5 ng/mL Consistent with diagnosis of MA 5 Because ethnic data is not always [...] 5 Kidney failure <15 (or dialysis) 7 Because ethnic data is not always [...] 5 Kidney failure <15 (or dialysis) 8 HDL Interpretation: Undesirable: High Risk: Less than 40 mg/dL Desirable: Low Risk: Greater than 60 mg/dL 9 LDL Interpretation: Low Risk Optimal Level: LDL Less than 100 mg/dL Near or Above Optimal: LDL 100-129 mg/dL Borderline High Risk: LDL 130-159 mg/dL High Risk: LDL 160-189 mg/dL Very High Risk: LDL Greater than 189 mg/dL 10 Therapeutic target for the treatment of diabetes Mellitus patients is <7% HBA1C, and in selective patients <6.0%.Please refer to [place] [employer] Diabetic care guidelines for further information. 11 THERAPEUTIC TARGET FOR THE TREATMENT OF DIABETES MELLITUS PATIENTS IS <7% HBA1C, AND IN SELECTIVE PATIENTS <6.0%. PLEASE REFER TO [employer] DIABETIC CARE GUIDELINES FOR FURTHER INFORMATION. 12 CHOLESTEROL INTERPRETATION: Desirable: Less than 200 MG/DL Borderline-High Risk: 200-239 MG/DL High-Risk: 240 MG/DL and over 13 HDL INTERPRETATION: Undesirable: High Risk: Less than 40 MG/DL Desirable: Low Risk: Greater than 60 MG/DL 14 LDL INTERPRETATION: Low Risk Optimal Level: LDL Less than 100 MG/DL Near or Above Optimal: LDL 100-129 MG/DL Borderline High Risk: LDL 130-159 MG/DL High Risk: LDL 160-189 MG/DL Very High Risk: LDL Greater than 189 MG/DL 15 Anion gap measurement may be of limited value in the presence of any alkalosis, especially in a combined acid base disorder. . 16 A metabolite of Naproxen, O-desmethylnaproxen, has been shown to interfere with the [place] method for measuring total bilirubin. Samples from patients who have taken Naproxen have shown spurious elevation in total bilirubin levels. 17 Because ethnic data is not always readily [...] 15-29 5 Kidney failure <15 (or dialysis) 18 THERAPEUTIC TARGET FOR THE TREATMENT OF DIABETES MELLITUS PATIENTS IS <7% HBA1C, AND IN SELECTIVE PATIENTS <6.0%. PLEASE REFER TO [employer] DIABETIC CARE GUIDELINES FOR FURTHER INFORMATION. 19 CHOLESTEROL INTERPRETATION: Desirable: Less than 200 MG/DL Borderline-High Risk: 200-239 MG/DL High-Risk: 240 MG/DL and over 20 HDL INTERPRETATION: Undesirable: High Risk: Less than 40 MG/DL Desirable: Low Risk: Greater than 60 MG/DL 21 LDL INTERPRETATION: Low Risk Optimal Level: LDL Less than 100 MG/DL Near or Above Optimal: LDL 100-129 MG/DL Borderline High Risk: LDL 130-159 MG/DL High Risk: LDL 160-189 MG/DL Very High Risk: LDL Greater than 189 MG/DL 22 Anion gap measurement may be of limited value in the presence of any alkalosis, especially in a combined acid base disorder. . 23 A metabolite of Naproxen, O-desmethylnaproxen, has been shown to interfere with the [place] method for measuring total bilirubin. Samples from patients who have taken Naproxen have shown spurious elevation in total bilirubin levels. 24 Because ethnic data is not always readily [...] 15-29 5 Kidney failure <15 (or dialysis) 25 FASTING 26 Anion gap measurement may be of limited value in the presence of any alkalosis, especially in a combined acid base disorder. . Procedures Date CPT Code Description Status 08/09/2017 15064 Holter Monitor Review (24 hr)dr michaels & blaine Completed only 08/08/2017 26021 ECG Monitor/Recording W/Visual Superimposition Scanning Completed 07/13/2017 82180 EKG Tracing & Interpretation Completed 05/22/2017 17649 Inject/Drain Joint/Bursa Major Completed 03/01/201749365 Inject/Drain Joint/Bursa Major Completed 11/03/2016 17786 Arthroscopy,Knee,Meniscectomy Media & Lateral Completed 11/03/2016 04708 Arthroscopy,Knee,Meniscectomy Media & Lateral Completed 11/01/2016 18339 EKG Tracing & Interpretation Completed 09/26/2016 18293 Inject/Drain Joint/Bursa Major Completed 05/16/2016 49247 EKG Tracing & Interpretation Completed 04/29/2015 24746 EKG Tracing & Interpretation Completed 05/29/2014 07933 EKG Tracing & Interpretation Completed 01/15/2014 21945 ECHO Stress Test Incl Perf Contiuous ekg Monitoring Completed W/Phys Superv 11/26/2013 61449 Holter Monitoring 24 HR New Completed 11/08/2013 19670 ECHO Transthoracic, Real-Time 2D With Doppler And Color Completed Flow 10/24/2013 10827 Rad Shoulder Comp, Min. 2 Views Completed 10/24/2013 15190 Rad Shoulder Comp, Min. 2 Views Completed 10/22/2013 02966 EKG Tracing & Interpretation Completed 07/18/2013 78608 Rad Shoulder Comp, Min. 2 Views Completed 06/17/2013 29050 EKG Tracing & Interpretation Completed 01/31/2013 58929 Rad Shoulder Comp, Min. 2 Views Completed 01/18/2013 62116 Arthroplasty,Total Shoulder Replacement (TSR) Completed 01/03/2013 57366 EKG, Interpretation Only Completed 12/12/2012 48662 EKG Tracing & Interpretation Completed 11/27/2012 81300 Inject/Drain Joint/Bursa Major Completed 11/27/2012 45042 Inject/Drain Joint/Bursa Major Completed 02/09/2012 54083 EKG Tracing & Interpretation Completed 01/25/2012 75862 Nerve Conduction, Sensory Completed 01/25/2012 43886 Nerve Conduction, Motor W/O F-Wave Study Completed 09/19/2011 90986 ECHO Stress Test Incl Perf Contiuous ekg Monitoring Completed W/Phys Superv 09/15/2011 23679 EKG Tracing & Interpretation Completed 09/08/2011 14309 Rad Shoulder Comp, Min. 2 Views Completed 09/08/2011 61279 Rad Shoulder Comp, Min. 2 Views Completed 01/27/2011 87732 EKG Tracing & Interpretation Completed 01/22/2010 51002 EKG Tracing & Interpretation Completed 11/30/2009 92004 Mobile Cardiovascular Telemetry Over 24 HR Up To 30 Completed Days 10/23/2009 74197 Mobile Cardiovascular Telemetry Over 24 HR Up To 30 Completed Days 10/14/2009 25133 ECHO Stress Test Incl Perf Contiuous ekg Monitoring Completed W/Phys Superv 10/08/2009 65160 Holter Monitor Interpretation Completed 10/02/2009 44020 EKG Tracing & Interpretation Completed 06/25/2009 26253 Stress ECHO Interpretation/Report Hospital Completed 06/25/2009 99658 Treadmill Interp/Report Only Completed 06/25/2009 54933 Stress Test Supervsn W/Out I/R Completed 06/18/2009 21144 Treadmill Interp/Report Only Completed 06/18/2009 72619 Stress Test Supervsn W/Out I/R Completed 05/25/2009 29240 EKG Tracing & Interpretation Completed 07/02/2008 32202 EKG Tracing & Interpretation Completed 07/02/2008 16121 EKG Tracing & Interpretation Completed 09/20/2007 07017 EKG Tracing & Interpretation Completed 03/14/2007 54893 EKG Tracing & Interpretation Completed 12/06/2006 64532 EKG Tracing & Interpretation Completed 12/06/2006 13699 EKG Tracing & Interpretation Completed 11/14/2006 61831 EKG Tracing & Interpretation Completed 11/14/2006 70147 EKG Tracing & Interpretation Completed 06/28/2006 34498 EKG Tracing & Interpretation Completed 08/25/2005 07908 EKG Tracing & Interpretation Completed 12/08/2004 83796 EKG Tracing & Interpretation Completed 09/02/2003 16311 EKG Tracing & Interpretation Completed 08/26/2003 25364 Color Doppler Completed 08/26/2003 22112 Pulse Doppler & Continuous Wave Completed 08/26/2003 70739 Echocardiogram Completed Encounters Type Date Location Provider CPT E/M Dx Office Visit 09/04/2017 [facility] Bailey M.D. 02464 M25.552 2:45p [facility] [place] M16.12 Office Visit 07/24/2017 8:30a [facility] Tamela Bailey M.D. 62007 M25.561 C.MEliseo M25.461 M17.11 Office Visit 07/13/2017 11:00a [facility] [address], [address] [address] [employer]cierge Jennifer I71.2 R00.1 E11.9 R42 I42.9 R94.31 Office Visit 05/22/2017 9:30a [facility] Tamela Bailey M.D. 52114 M25.561 C.M.A. M25.461 M17.11 Office Visit 03/10/2017 11:00a [facility] Tam[facility] Bailey M.D. 59349 M25.561 C.M.A. M25.461 M17.11 S83.241D Office Visit 03/01/2017 12:00p [facility] Tamela Bailey M.D. 23287 M25.561 C.M.A. M25.461 M17.11 Office Visit 11/01/2016 1:40p [facility] [address], [address] M25.561 Jennifer I10 I71.2 R00.1 E66.9 I45.10 Z01.810 Office Visit 10/07/2016 1:00p [facility] Tamela Bailey M.D. 81522 M25.561 C.M.A. M25.461 M17.11 S83.241D Office Visit 10/03/2016 9:15a [facility] Bailey M.D. 23324 M25.561 C.M.A. M25.461 M17.11 Office Visit 09/26/2016 1:00p [facility] Tam[facility] Bailey M.D. 06726 M25.561 C.M.A. M25.461 M17.11 Office Visit 2016 8:30a [facility] JAY Gordon 35208 E66.9 I10 I71.2 Office Visit 06/15/2016 8:30a [facility] JAY Gordon 52553 I10 E66.9 I71.2 Office Visit 05/16/2016 9:00a [facility] [address] M.D. 95470 I71.2 I10 E66.9 R00.1 E78.00 Office Visit 04/29/2015 9:00a [facility] [address] M.D. 00036 I49.5 I71.2 I10 E66.9 Office Visit 05/29/2014 10:00a [facility] [address] M.D. 91035 368.2 427.81 441.2 428.32 401.1 Office Visit 01/15/2014 1:30p [facility] [address], [address] 786.59 M.DEmma 368.2 427.81 Office Visit 12/31/2013 8:00a [facility] Rom Cole M.D. 92620 718.81 C.M.A. Office Visit 10/31/2013 1:30p [facility] Rom Cole M.D. 33474 719.41 C.M.A. Office Visit 10/24/2013 9:00a [facility] Nathalia Galan 95473 719.41 C.M.A. RPA-C Office Visit 10/22/2013 9:00a [facility] [address], [address] 401.1 M.D. 441.2 427.81 Office Visit 07/18/2013 11:30a [facility] Cole M.D. 99541 716.91 C.M.A. Office Visit 06/17/2013 3:20p [facility] [address] [address] 441.2 M.D. 401.1 427.81 786.59 Office Visit 05/21/2013 9:00a [facility] Cole M.D. 44729 716.81 C.M.A. Office Visit 12/12/2012 9:20a [facility] [address] [address]09 716.81 M.D. 441.2 428.32 794.31 401.1 427.81 327.26 Office Visit 11/27/2012 9:15a [facility] M.D. 90072 716.81 C.M.A. 716.91 716.91 719.41 Office Visit 02/09/2012 9:00a [facility] [address] M.D. 55887 354.0 272.0 786.50 441.2 Office Visit 01/25/2012 3:00p [facility] DarrenEmma Brito, [address]642 354.0 Neurologic Serv Vera Rodriguez Office Visit 09/15/2011 2:40p [facility] [address] 427.81 428.32 441.2 794.31 Office Visit 09/08/2011 9:00a [facility] Cole M.D. 59166 716.91 C.M.A. Office Visit 01/27/2011 2:40p [facility] [address] [address] 786.50 M.DEmma 272.0 401.1 427.81 Office Visit 01/22/2010 3:00p [facility] [address] [address] 427.81 M.DEmma 786.50 272.0 401.1 Office Visit 10/14/2009 9:30a [facility] [address] [address] 786.50 M.D. 272.0 401.1 428.32 278.01 427.81 Office Visit 10/02/2009 1:40p [facility] [address] [address] 786.50 M.D. 272.0 401.1 428.32 278.01 782.3 Office Visit 05/25/2009 9:30a [facility] [address] M.D. 73777 272.0 401.1 428.32 278.01 427.81 441.2 Office Visit 07/02/2008 3:20p [facility] [address] [address] 786.50 M.D. 272.0 401.1 428.32 Office Visit 09/20/2007 9:20a [facility] [address] [address] 786.50 M.D. 272.0 401.1 428.32 278.01 Office Visit 03/14/2007 8:40a [facility] [address] [address]353 786.50 M.D. 272.0 401.1 428.32 278.01 Office Visit 12/06/2006 2:40p [facility] [address], [address]88 427.81 M.D. 401.1 272.0 Office Visit 11/14/2006 3:20p [facility] [address] M.D. 22251 780.4 427.81 401.1 Office Visit 08/30/2006 11:00a [facility] [address], 42850 786.50 M.D. 401.1 278.01 Office Visit 06/28/2006 3:40p [facility] [address] [address] 428.32 M.D. 786.50 401.1 272.0 Office Visit 08/25/2005 10:20a [facility] [address], 53467 428.32 M.D. 401.1 278.01 Office Visit 12/08/2004 10:40a [facility] [address] [address] 786.50 M.D. 278.01 401.1 Office Visit 12/10/2003 9:00a [facility] [address] M.D. 63428 272.0 786.59 401.1 V58.69 Office Visit 10/09/2003 2:20p [facility] [address] M.D. 43795 428.0 786.59 Office Visit 09/02/2003 1:40p [facility] [address] M.D. 92927 428.0 786.50 272.0 780.7 Plan of Care Future Appointment(s):09/21/2017 1:30 pm - JAY George at [facility]09/21/2017 1:30 pm - Enzo Adler PA-C at [facility]09/21/2017 1:30 pm - JAY Causey at [facility]09/11/2017 9:00 am - Tamela Bailey M.D. at [facility]09/21/2017 1:30 pm - Tamela Bailey M.D. at [facility] [facility]10/04/2017 9:30 am - Tamela Bailey M.D. at [facility]09/18/2017 3:40 pm - Lance Street M.D. at [facility]09/04/2017 - Tamela Bailey M.D.M25.552 Pain in left hipNew Medication:Meloxicam 15 mgFollow up:Follow up: for h and p rtkaM16.12 Unilateral primary osteoarthritis, left hip
[2017-09-21] MEDS ORDERED: Dexamethasone IV* 4 MG/ML 1 ML (4 MG) ONE (10:01)
[2017-09-21] MEDS ORDERED: Gabapentin CAP(*) 300 MG ONE (10:02)
[2017-09-21] MEDS ORDERED: ceFAZolin 2 GM PREMIX (*) 2 GM/50 ML BAG IVPB ONE (10:02)
[2017-09-21] MEDS ORDERED: ceFAZolin 1 GM in Dextrose (*) 1 GM/50 ML BAG IVPB ONE (10:02)
[2017-09-21] MEDS ORDERED: Acetaminophen IV 1GM/100ML * 100 ML ONE (10:05)
[2017-09-21] MEDS ORDERED: fentaNYL* 50 MCG/ML 2 ML VIAL (100 MCG VIAL) ONE (11:29)
[2017-09-21] MEDS ORDERED: Midazolam* 1 MG/ML 5 ML VIAL (5 MG) ONE ×2 (11:29→14:00)
[2017-09-21] MEDS ORDERED: celeCOXIB CAP* 200 MG PO ONE (11:32)
[2017-09-21] MEDS ORDERED: Famotidine IV* 10 MG/ML 2 ML (20 mg) IV SLOW PU ONE (11:33)
[2017-09-21] MEDS ORDERED: Propofol* 10 MG/ML 20 ML BTL IV PUSH ONE ×2 (11:38→14:58)
[2017-09-21] MEDS ORDERED: Ondansetron INJ* 2 MG/ML VIAL ONE (11:38)
[2017-09-21] MEDS ORDERED: Bupivacaine 0.5% SDV PF* 10-30ML VIAL ONE ×2 (11:38→11:56)
[2017-09-21] MEDS ORDERED: ROPIVACAINE 5 MG/ML 30 ML BTL (0.5%) ONE (12:34)
[2017-09-21] MEDS ORDERED: Famotidine IV* 10 MG/ML 2 ML (20 mg) ONE (12:37)
[2017-09-21] MEDS ORDERED: celeCOXIB CAP* 100 MG ONE (12:37)
[2017-09-21] MEDS ORDERED: EPHEDrine (Pressors)* 50 MG/ML VIAL ONE (13:19)
[2017-09-21] MEDS ORDERED: fentaNYL* 50 MCG/ML 2 ML VIAL (100 MCG VIAL) IV PRN (13:54)
[2017-09-21] MEDS ORDERED: HYDROmorphone INJ* 1 MG/ML CARPUJECT SYRINGE IV PRN (13:54)
[2017-09-21] MEDS ORDERED: DiMENhydriNATE IV* 50 MG/ML VIAL IV PUSH PRN (13:54)
[2017-09-21] MEDS ORDERED: Ondansetron INJ* 2 MG/ML VIAL IV PRN ×2 (13:54→14:17)
[2017-09-21] MEDS ORDERED: Levalbuterol 0.63MG/3ML NEB* UNIT OF USE INH PRN (13:54)
[2017-09-21] MEDS ORDERED: Naloxone* 0.4 MG/ML 1 ML VIAL IV PRN (13:54)
[2017-09-21] MEDS ORDERED: Magnesium Hydroxide LIQ* 30 ML UDC PO PRN (14:17)
[2017-09-21] MEDS ORDERED: diPHENhydraMINE IV* 50 MG/ML 1 ml VIAL (BENADRYL) IV PRN (14:17)
[2017-09-21] MEDS ORDERED: Polyethylene Glycol 3350* 17 GM PACKET PO PRN (14:17)
[2017-09-21] MEDS ORDERED: Bisacodyl SUPP* 10 MG SUPP PR PRN (14:17)
[2017-09-21] MEDS ORDERED: Acetaminophen TAB* 325 MG PO PRN (14:17)
[2017-09-21] MEDS ORDERED: Morphine INJ* 2 MG/ML 1 ML CARPUJECT IV PRN (14:17)
[2017-09-21] MEDS ORDERED: EPINEPHrine AMP 1 MG/ML IM PRN (14:27)
[2017-09-21] MEDS ORDERED: Albuterol HFA INHALER* 8 gm MDI INH PRN (14:36)
[2017-09-21] MEDS ORDERED: Glycopyrrolate IV* 0.2 MG/ML 1 ML VIAL ONE (15:23)
[2017-09-21] MEDS ORDERED: Atropine 1MG/ML INJ* 1 ML VIAL ONE (15:23)
--- NOTE | 2017-09-21 16:59 | RAD ---
INDICATION: Status post right TKA COMPARISON: Preoperative radiograph dated September 26, 2016 TECHNIQUE: 2 view radiograph of the right knee. FINDINGS: The right knee prosthesis is anatomically aligned in the AP and lateral projections. Expected postsurgical changes include subcutaneous gas, percutaneous drain as well as a overlying knee brace. IMPRESSION: Anatomic alignment of recently installed right knee prosthesis.
--- NOTE | 2017-09-21 17:08 | CONSULT ---
Consult Consult: HOSPITALIST CONSULT: Date of Consultation: 09/21/17 Requesting Provider: Dr. Bailey Reason for Consultation: Medical Co-management HPI: Mr Talavera is a 72 yo M who has a h/o HTN, type II DM, MARJORIE, PTSD and sinus node dysfunction with baseline bradycardic HR who just underwent elective R TKA with Dr Bailey. The patient states he is feeling well. He denies any CP, SOB, lightheadedness or significant pain in his surgical knee. His only complaint is a scratchy throat. PMHx: HTN, type II DM, MARJORIE, PTSD, sinus node dysfunction, hypothyroidism, obesity PSHx: R knee meniscus repair, R TKA, R total shoulder replacement, multiple L shoulder surgeries, R carpal tunnel release All: Niacin, sertraline, trazodone Meds: reviewed FamHx: positive for cancer, stroke and diabetes SocHx: the patient chews tobacco, smoked for 6 years previously, drinks EtOH on occasion, , lives with his , is HCP. ROS: per HPI and otherwise negative. PE: 127/69 HR42 RR21 T97.2 100% on 2L gen: elderly obese male lying flat on the bed, NAD HEENT: PERRL, EOMI, oropharynx is clear, oral mucosa is moist, upper and lower dentures Card: nl S1S2 bradycardic but regular Lungs: CTA anteriorly Abd: BS+ soft, NT, ND Musc: R knee in surgical dressing and cryounit Skin: warm and dry Neuro: nl exam, LE strength not tested Psych: A+Ox3 A/P: Mr Talavera is a 72 yo M who has a h/o sinus node dysfunction, HTN, type II DM , hypothyroidism and obesity who is POD# 0 from an elective R TKA. 1. R TKA: management including DVT prophylaxis per ortho 2. HTN: BP is under excellent control. Continue amlodipine 5mg daily. If BP more elevated tomorrow will add back losartan. 3. Type II DM: Will continue home medication regimen. Additionally will start lispro sliding scale with finger sticks ACHS. 4. Hypothyroidism: Continue home dose of synthroid. 5. Sinus node dysfunction: monitor on tele. Will need to monitor for symptoms ( ie dizziness, faintness) and acceptable BP. If he becomes symptomatic can utilize atropine and get cardiology eval. May need a pacer in the future. 6. DVT-P: to start tomorrow 7. Full code
[2017-09-21] MEDS ORDERED: Dextrose 50% Syringe 50 ML* 25 GM/50 ML SYRINGE IV PUSH PRN (17:13)
[2017-09-21] MEDS ORDERED: SitaGLIPtin (NF) 100 MG TAB PO SCH (18:00)
[2017-09-21] MEDS ORDERED: Omeprazole CAP* 20 MG PO SCH (18:00)
[2017-09-21] MEDS: Insulin LISPRO* 1 UNITS UNIT SUBCUT SCH ×2 (18:41→22:41)
[2017-09-21] MEDS: oxyCODONE/Acetamin 5/325 MG* TAB PO PRN ×2 (19:09→23:13)
[2017-09-21] MEDS ORDERED: Warfarin TAB(*) 6 MG PO ONE (20:00)
[2017-09-21] MEDS: ceFAZolin 1 GM in Dextrose (*) 1 GM/50 ML BAG IVPB SCH (22:38)
[2017-09-21] MEDS: Magnesium Hydroxide LIQ* 30 ML UDC PO SCH (22:38)
[2017-09-21] MEDS: CMCS: Glimepiride (NF) 2 MG TAB PO SCH (22:39)
[2017-09-21] MEDS: Docusate CAP* 100 MG PO SCH (22:41)
[2017-09-21] MEDS: Prazosin CAP* 1 MG PO SCH (23:13)
[2017-09-21] MEDS: Omeprazole CAP* 20 MG PO SCH (23:15)
[2017-09-22] MEDS: oxyCODONE TAB* 5 MG TAB PO PRN ×5 (00:20→23:26)
[2017-09-22] MEDS: Cyclobenzaprine TAB* 10 MG PO PRN ×2 (03:42→14:21)
[2017-09-22] MEDS: ceFAZolin 1 GM in Dextrose (*) 1 GM/50 ML BAG IVPB SCH ×2 (06:01→13:11)
[2017-09-22] MEDS: Levothyroxine TAB* 137 MCG TAB PO SCH (06:01)
[2017-09-22 06:27] LABS: Hematocrit 36 % (42-52); Hemoglobin 12.1 g/dl (14.0-18.0); Mean Platelet Volume 9.2 um3 (7.4-10.4); Platelet Count 193 10^3/ul (150-450)
[2017-09-22 06:31] LABS: INR 0.97 (0.77-1.02)
[2017-09-22 06:52] LABS: EGFR Non-African American 68.9 (>60)
--- NOTE | 2017-09-22 08:14 | PN ---
Progress Note - Progress Note Date of Service: 09/22/17 SOAP: Subjective: 72 y/o male s/p R TKA by Dr Bailey 09/21. VSS, afebrile overnight. Objective: General- Well appearing, NAD, AO Sitting in bed comfortably, pain 2/10 at rest MSK- RLE- DF/PF = b/l with god strength, PT 2+, negative homans sign, Drain removed without difficulty, sideholes seen, no complications. Vital Signs Temp 98.9 F 09/22/17 03:42 Pulse 93 09/22/17 03:42 Resp 18 09/22/17 06:01 BP 157/79 09/22/17 03:42 Pulse Ox 96 09/22/17 03:42 Intake & Output 09/21/17 09/22/17 09/22/17 18:59 06:59 18:59 Intake Total 2500 5047 Output Total 2700 Balance 2500 2347 Weight 123.921 kg Intake: IV Fluids 2500 1177 LR 2500 1177 IVPB 60 ABX - CEFAZOLIN 60 Oral 3810 Output: Samuel 2700 Assessment: Stable 72 y/o male s/p R TKA by Dr Bailey 09/21. Plan: - DVT prophylaxis- lovenox, coumadin 7.5 mg tonight. - Continue PT/ OT - Follow up with Dr. Bailey within 10-14 days - H&H - stable - post-op IV ABX - Completed - DM- Tighter glucose control needed, will dicuss with hospitalists - Pain control- long acting pain medication added, decrease short acting to prevent over-sedation . Acetaminophen (Tylenol Tab*) 650 mg PO Q4H PRN PRN Reason: PAIN OR TEMPERATURE Albuterol (Ventolin Hfa Inhaler*) 2 puff INH Q4H PRN PRN Reason: SOB/WHEEZING Amlodipine Besylate (Norvasc Tab*) 5 mg PO QAM [facility] Atorvastatin Calcium (Lipitor*) 10 mg PO DAILY [facility] Bisacodyl (Dulcolax Supp*) 10 mg TN DAILY PRN PRN Reason: constipation Cyclobenzaprine HCl (Flexeril Tab*) 10 mg PO TID PRN PRN Reason: SPASMS Last Admin: 09/22/17 03:42 Dose: 10 mg Dextrose (D50w Syringe 50 Ml*) 12.5 gm IV PUSH .FOR FS < 60 - SS PRN PRN Reason: FS < 60 Diphenhydramine HCl (Benadryl Iv*) 25 mg IV Q6H PRN PRN Reason: itching Docusate Sodium (Colace Cap*) 100 mg PO BID [facility] Last Admin: 09/21/17 22:41 Dose: 100 mg Enoxaparin Sodium (Lovenox(*)) 30 mg SUBCUT Q24H [facility] Epinephrine HCl (Epinephrine Amp 1 Mg/Ml*) 0.3 mg IM ONCE PRN PRN Reason: SOB/WHEEZING D/T ANAPHYLAXIS Glimepiride (Glimepiride (Nf)) 1 mg PO BID WITH MEALS [facility] Last Admin: 09/21/17 22:39 Dose: 1 mg Cefazolin Sodium/Dextrose (Kefzol 1 Gm In Dextrose Duplex (*)) 1 gm in 50 mls @ 200 mls/hr IVPB Q8H [facility] Stop: 09/22/17 13:44 Last Admin: 09/22/17 06:01 Dose: 200 mls/hr Lactated Ringer's (Lactated Ringers 1000 Ml Bag*) 1,000 mls @ 100 mls/hr IV PER RATE [facility] Last Admin: 09/22/17 04:24 Dose: 100 mls/hr Insulin Human Lispro (Humalog*) 0 units SUBCUT ACHS [facility] PRN Reason: Protocol Last Admin: 09/21/17 22:41 Dose: 12 units Levothyroxine Sodium (Synthroid Tab*) 137 mcg PO DAILY@0600 [facility] Last Admin: 09/22/17 06:01 Dose: 137 mcg Magnesium Hydroxide (Milk Of Magnesia Liq*) 30 ml PO BID [facility] Last Admin: 09/21/17 22:38 Dose: 30 ml Magnesium Hydroxide (Milk Of Magnesia Liq*) 30 ml PO Q6H PRN PRN Reason: constipation Metformin HCl (Glucophage*) 1,000 mg PO BID WITH MEALS [facility] Morphine Sulfate (Morphine Inj (Syringe)*) 2 mg IV Q2H PRN PRN Reason: PAIN - UNCONTROLLED Last Admin: 09/22/17 02:05 Dose: 2 mg Multivitamins (Theragran Tab*) 1 tab PO DAILY [facility] Omeprazole (Prilosec Cap*) 20 mg PO 1800 [facility] Last Admin: 03/29/18 23:15 Dose: 20 mg Ondansetron HCl (Zofran Inj*) 4 mg IV Q6H PRN PRN Reason: nausea Oxycodone HCl (Roxycodone Tab*) 10 mg PO Q4H PRN PRN Reason: PAIN - SEVERE Last Admin: 09/22/17 00:20 Dose: 10 mg Oxycodone/Acetaminophen (Percocet 5/325 Tab*) 2 tab PO Q4H PRN PRN Reason: PAIN - MODERATE Last Admin: 09/21/17 23:13 Dose: 2 tab Oxycodone/Acetaminophen (Percocet 5/325 Tab*) 1 tab PO Q4H PRN PRN Reason: Pain -mild Pharmacy Profile Note (Coumadin Daily Reminder*) 1 note FOLLOW UP 1700 [facility] Polyethylene Glycol/Electrolytes (Miralax*) 17 gm PO DAILY PRN PRN Reason: Constipation Prazosin HCl (Minipress Cap*) 1 mg PO QPM [facility] Last Admin: 09/21/17 23:13 Dose: 1 mg Venlafaxine HCl (Effexor Xr Cap*) 112.5 mg PO DAILY [facility]
[2017-09-22] MEDS: Enoxaparin(*) 30 MG/0.3 ML SYR SUBCUT SCH (08:44)
[2017-09-22] MEDS: Docusate CAP* 100 MG PO SCH ×2 (08:44→20:28)
[2017-09-22] MEDS: Insulin LISPRO* 1 UNITS UNIT SUBCUT SCH ×4 (08:44→20:31)
[2017-09-22] MEDS: metFORMIN* 500 MG TAB PO SCH ×2 (08:44→17:18)
[2017-09-22] MEDS: Vitamin THERAPEUTIC TAB PO SCH (08:45)
[2017-09-22] MEDS: Venlafaxine EXT RELEASE CAP* 37.5 MG PO SCH (08:45)
[2017-09-22] MEDS: amLODIPine TAB* 5 MG PO SCH (08:45)
[2017-09-22] MEDS: Atorvastatin* 10 MG TAB PO SCH (08:45)
[2017-09-22] MEDS: CMCS: Glimepiride (NF) 2 MG TAB PO SCH ×2 (08:46→17:17)
[2017-09-22] MEDS: Magnesium Hydroxide LIQ* 30 ML UDC PO SCH ×2 (11:21→20:31)
[2017-09-22] MEDS: Morphine TAB Extended Release (*) 15 MG TAB.ER PO SCH ×2 (11:21→20:28)
[2017-09-22] MEDS: Losartan TAB* 25 MG PO SCH (14:21)
--- NOTE | 2017-09-22 14:26 | PN ---
Subjective Date of Service: 09/22/17 Interval History: Pt is feeling worn out. He just finished working [facility]. He states his pain has been regularly a 01/02. He denies any SOB. Objective Active Medications: Acetaminophen (Tylenol Tab*) 650 mg PO Q4H PRN PRN Reason: PAIN OR TEMPERATURE Last Admin: 09/22/17 08:45 Dose: 650 mg Albuterol (Ventolin Hfa Inhaler*) 2 puff INH Q4H PRN PRN Reason: SOB/WHEEZING Amlodipine Besylate (Norvasc Tab*) 5 mg PO QAM [facility] Last Admin: 09/22/17 08:45 Dose: 5 mg Atorvastatin Calcium (Lipitor*) 10 mg PO DAILY [facility] Last Admin: 09/22/17 08:45 Dose: 10 mg Bisacodyl (Dulcolax Supp*) 10 mg ME DAILY PRN PRN Reason: constipation Cyclobenzaprine HCl (Flexeril Tab*) 10 mg PO TID PRN PRN Reason: SPASMS Last Admin: 09/22/17 03:42 Dose: 10 mg Dextrose (D50w Syringe 50 Ml*) 12.5 gm IV PUSH .FOR FS < 60 - SS PRN PRN Reason: FS < 60 Diphenhydramine HCl (Benadryl Iv*) 25 mg IV Q6H PRN PRN Reason: itching Docusate Sodium (Colace Cap*) 100 mg PO BID [facility] Last Admin: 09/22/17 08:44 Dose: 100 mg Enoxaparin Sodium (Lovenox(*)) 30 mg SUBCUT Q24H [facility] Last Admin: 09/22/17 08:44 Dose: 30 mg Epinephrine HCl (Epinephrine Amp 1 Mg/Ml*) 0.3 mg IM ONCE PRN PRN Reason: SOB/WHEEZING D/T ANAPHYLAXIS Glimepiride (Glimepiride (Nf)) 1 mg PO BID WITH MEALS [facility] Last Admin: 09/22/17 08:46 Dose: 1 mg Lactated Ringer's (Lactated Ringers 1000 Ml Bag*) 1,000 mls @ 100 mls/hr IV PER RATE [facility] Last Admin: 09/22/17 04:24 Dose: 100 mls/hr Insulin Human Lispro (Humalog*) 0 units SUBCUT ACHS [facility] PRN Reason: Protocol Last Admin: 09/22/17 08:44 Dose: 9 units Levothyroxine Sodium (Synthroid Tab*) 137 mcg PO DAILY@0600 [facility] Last Admin: 09/22/17 06:01 Dose: 137 mcg Losartan Potassium (Cozaar Tab*) 100 mg PO QAM [facility] Magnesium Hydroxide (Milk Of Magnesia Liq*) 30 ml PO BID [facility] Last Admin: 09/22/17 11:21 Dose: 30 ml Magnesium Hydroxide (Milk Of Magnesia Liq*) 30 ml PO Q6H PRN PRN Reason: constipation Metformin HCl (Glucophage*) 1,000 mg PO BID WITH MEALS [facility] Last Admin: 09/22/17 08:44 Dose: 1,000 mg Morphine Sulfate (Morphine Inj (Syringe)*) 2 mg IV Q2H PRN PRN Reason: PAIN - UNCONTROLLED Last Admin: 09/22/17 02:05 Dose: 2 mg Morphine Sulfate (Ms Contin(*)) 15 mg PO Q12H [facility] Last Admin: 09/22/17 11:21 Dose: 15 mg Multivitamins (Theragran Tab*) 1 tab PO DAILY [facility] Last Admin: 09/22/17 08:45 Dose: 1 tab Omeprazole (Prilosec Cap*) 20 mg PO 1800 [facility] Last Admin: 09/21/17 23:15 Dose: 20 mg Ondansetron HCl (Zofran Inj*) 4 mg IV Q6H PRN PRN Reason: nausea Oxycodone HCl (Roxycodone Tab*) 10 mg PO Q4H PRN PRN Reason: PAIN - SEVERE Last Admin: 09/22/17 08:45 Dose: 10 mg Oxycodone/Acetaminophen (Percocet 5/325 Tab*) 1 tab PO Q4H PRN PRN Reason: Pain -mild Pharmacy Profile Note (Coumadin Daily Reminder*) 1 note FOLLOW UP 1700 [facility] Polyethylene Glycol/Electrolytes (Miralax*) 17 gm PO DAILY PRN PRN Reason: Constipation Prazosin HCl (Minipress Cap*) 1 mg PO QPM [facility] Last Admin: 09/21/17 23:13 Dose: 1 mg Venlafaxine HCl (Effexor Xr Cap*) 112.5 mg PO DAILY [facility] Last Admin: 09/22/17 08:45 Dose: 112.5 mg Warfarin Sodium (Coumadin Tab(*)) 7.5 mg PO ONCE@1700 ONE PRN Reason: Protocol Stop: 09/22/17 17:01 Vital Signs - 8 hr 09/22/17 09/22/17 09/22/17 07:32 08:45 11:21 Temperature 98.3 F Pulse Rate 83 Respiratory 18 16 16 Rate Blood Pressure 158/79 (mmHg) O2 Sat by Pulse 97 Oximetry 09/22/17 11:48 Temperature 98.4 F Pulse Rate 73 Respiratory 14 Rate Blood Pressure 163/78 (mmHg) O2 Sat by Pulse 95 Oximetry Oxygen Devices in Use Now: None Appearance: Elderly male lying in bed, NAD Eyes: No Scleral Icterus Ears/Nose/Mouth/Throat: Mucous Membranes Moist Respiratory: Symmetrical Chest Expansion and Respiratory Effort, Clear to Auscultation - anteriorly Cardiovascular: NL Sounds; No Murmurs; No JVD, RRR, No Edema Abdominal: NL Sounds; No Tenderness; No Distention Extremities: No Clubbing, Cyanosis, - - R knee in cryounit Skin: No Nodules or Sclerosis Neurological: Alert and Oriented x 3 Result Diagrams: 09/22/17 05:58 09/22/17 05:58 Assess/Plan/Problems-Billing Mr Talavera is a 72 yo M who has a h/o MARJORIE, type II DM, HTN and sinus node dysfunction who is admitted following an elective R TKA. - Patient Problems (1) S/P total knee arthroplasty Current Visit: Yes Status: Acute Code(s): Z96.659 - PRESENCE OF UNSPECIFIED ARTIFICIAL KNEE JOINT SNOMED Code(s): 4521260992144 Comment: Management per orthopedics (2) HTN (hypertension) Current Visit: Yes Status: Acute Code(s): I10 - ESSENTIAL (PRIMARY) HYPERTENSION SNOMED Code(s): 30412832 Comment: BP is moderately elevated but he has been off his losartan. Resume today. (3) Type II diabetes mellitus Current Visit: Yes Status: Acute Comment: Sugars are poorly controlled though he states he ate a large amount of carb containing foods last night. At home he states his sugars are 130-150. Check A1c. Continue metformin and glimeperide. Januvia on hold as it is non-formulary. Continue lispro sliding scale. (4) MARJORIE (obstructive sleep apnea) Current Visit: Yes Status: Acute Code(s): G47.33 - OBSTRUCTIVE SLEEP APNEA ( ADULT) (PEDIATRIC) SNOMED Code(s): 70737681 Comment: Continue CPAP. (5) Sinus node dysfunction Current Visit: Yes Status: Acute Code(s): I49.5 - SICK SINUS SYNDROME SNOMED Code(s): 72270896 Comment: HR is in normal range today. MOnitor. He is asymptomatic. (6) DVT prophylaxis Current Visit: Yes Status: Acute Code(s): HSJ8127 - SNOMED Code(s): 846058433 Comment: lovenox/coumadin (7) Full code status Current Visit: Yes Status: Acute Code(s): Z78.9 - OTHER SPECIFIED HEALTH STATUS SNOMED Code(s): 025202142
[2017-09-22] MEDS ORDERED: Warfarin TAB(*) 7.5 MG PO ONE (17:00)
[2017-09-22] MEDS: Prazosin CAP* 1 MG PO SCH (17:17)
[2017-09-22] MEDS: oxyCODONE/Acetamin 5/325 MG* TAB PO PRN (17:17)
[2017-09-22] MEDS: Omeprazole CAP* 20 MG PO SCH (17:18)
--- NOTE | 2017-09-22 23:43 | OP ---
OPERATIVE REPORT: DATE OF OPERATION: 09/21/17 DATE OF : 47 SURGEON: Tamela Bailey MD CAN REFORMING MACHINE OPERATOR: JAY Arcos Ms. did help throughout the procedure with preparation of the leg, wound retraction, manipul ation of the knee, and wound closure. ANESTHESIOLOGIST: Pardeep Ledesma MD ANESTHESIA: Spinal. PRE-OP DIAGNOSIS: Severe end-stage degenerative osteoarthritis of the right knee joint POST-OP DIAGNOSIS: Severe end-stage degenerative osteoarthritis of the right knee joint OPERATIVE PROCEDURE: Right total knee arthroplasty. INDICATIONS: Mr. Talavera is a 72-year-old gentleman with years of increasingly severe right knee pain. He failed conservative treatment with anti-inflammatories, pain medication, intraarticular injectio ns, and physical therapy. Ilan did have arthroscopy in the past, which showed advanced arthritis in the medial femoral compartments. Radiographs also showed advanced arthritis. Due to continued pain and decreased quality of life, the patient elected to undergo right total knee arthroplasty. Inform ed consent was obtained from the patient. He understood the risks of the surgery included, but were not limited to, bleeding, infection, damage to nearby structures, continued pain, need for further carey rgery, intraoperative fracture, nerve palsy, hardware failure, loosening, knee stiffness, loss of mot ion, stroke, heart attack, blood clot, and . He wished to proceed. COMPLICATIONS: None. TOURNIQUET TIME: 65 minutes. SPECIMENS: Bone and cartilage from the right knee joint sent to Pathology. ESTIMATED BLOOD LOSS: 300 cc. HARDWARE USED: This is a cemented [employer] total knee arthroplasty hardware. Two packages o f Simplex bone cement. For the femur, a size 7 right Legion posterior stabilized femoral component. For the tibial base plate, a size 6 right tibial base plate Mattie II. For the insert, a 9-mm post erior stabilized articular insert, size 5/6. For the patella, a 35-mm 3-peg all poly patella. INTRAOPERATIVE FINDINGS: Intraoperatively, the patient was noted to have severe loss of cartilage in the medial and patellofemoral compartments. DESCRIPTION OF PROCEDURE: Mr. Talavera was identified in the preanesthesia unit. His right lower extre mity was marked as the correct operative side. Informed consent was signed and placed in the chart. The patient was taken to the operating room and placed under spinal anesthesia. A Samuel catheter wa s placed. Tourniquet was placed on the right thigh. Right lower extremity was prepped and draped in the usual sterile fashion. Preop time-out was made to correctly identify the patient's side and sit e. Appropriate perioperative antibiotics were given within 1 hour of incision. Tourniquet was inflated until the tourniquet time for this procedure was 65 minutes. A midline incis ion was made with a 10 blade and carried down to the extensor mechanism. New 10 blade was used to ma ke a standard medial parapatellar arthrotomy. The patella was subluxed laterally. Electrocautery wa s used to subperiosteally elevate soft tissue off the superomedial tibia to the mid sagittal plane. The knee was flexed up. The anterior horn of the lateral meniscus and ACL was sharply released. A d rill was used to enter the distal femur. Intramedullary distal femoral cutting guide was pinned on t he distal femur. Oscillating saw was used make the appropriate distal femoral cut. Next, the crabbing machine operator al rotation guide was pinned on the distal femur. The distal femur was sized to a size 7. Size 7 mu lti-cutting jig was pinned on the distal femur. The oscillating saw was used to make the appropriate 4 chamfer cuts. The PCL was completely released. Intramedullary tibial cutting guide was pinned on the proximal tibi a. The oscillating saw was used to make the appropriate proximal tibial cut perpendicular to the mec hanical axis of the tibia. The bone was carefully removed. The knee was brought out into full exten asher. A spacer block had good fit. Medial and lateral ligaments were well balanced. Flexion and ex tension gaps were well balanced. The knee was flexed up. Lamina neonatal doctor was placed both medially a nd laterally. Any remaining meniscus was removed with electrocautery. Curved osteotome was used to remove any remaining posterior osteophytes. Tibial tray and drop antonette were placed and once again conf irmed a satisfactory tibial cut. A size 7 right femoral trial was impacted on to the distal femur an d had good fit. The box for the posterior stabilized implant was prepared using a reamer and box cut osteotome. Size 6 tibial tray trial with a 9- mm insert trial was placed and the knee was taken thr ough a range of motion. The knee had full extension to 130 degrees of flexion with satisfactory lopez llofemoral tracking. The patella was everted. 9 mm of patellar bone and cartilage was carefully removed using an oscillat ing saw. The patella was sized to a size 35. Three peg holes were drilled through the size 35 guide . The 35 trial patella was placed and the knee was taken through range of motion. There was satisfa ctory patellofemoral tracking. All trials were carefully removed. The tibia was subluxed anteriorly and sized to a size 6. Proximal tibia was prepared using a size 8 keel punch. All bony cut surface s were copiously irrigated with sterile saline and dried. Final implants were cemented into place st arting with the tibia followed by the femur and lastly the patella. A 9-mm insert trial was placed a nd the knee was brought into full extension. Tourniquet was turned down at 65 minutes. The knee was copiously irrigated with sterile saline. Electrocautery was used to obtain meticulous h emostasis. Once the cement had fully cured, the insert trial was removed. Any excess cement was rem keny from around the capsule and hardware. Final insert chosen was a 9-mm posterior stabilized articu lar insert, size 5/6. This was locked into position on the tibial tray without difficulty. Stability of the insert was checked and rechecked and noted to be stable. The extensor mechanism was closed u sing interrupted #1 Vicryls over a medium Hemovac drain. The rest of the incision was closed in a la yered fashion using 0 and 2-0 Vicryls. Skin was closed using running 3-0 nylon suture. Sterile Xero form, 4x4s, and Webril were used to cover the incision. Berto wrap and cold pack were placed over this . The patient's anesthesia was reversed without difficulty and he was taken to the PACU in stable condi tion. Intended weightbearing will be weightbearing as tolerated. Intended DVT prophylaxis will be Julianne card with a Lovenox bridge. [id number]/[facility] #: [id number]
[2017-09-23] MEDS: Levothyroxine TAB* 137 MCG TAB PO SCH (05:21)
[2017-09-23] MEDS: oxyCODONE TAB* 5 MG TAB PO PRN ×3 (05:21→16:07)
[2017-09-23 05:27] LABS: Hematocrit 32 % (42-52); Hemoglobin 10.9 g/dl (14.0-18.0); Mean Platelet Volume 8.6 um3 (7.4-10.4); Platelet Count 156 10^3/ul (150-450)
[2017-09-23 05:29] LABS: INR 1.04 (0.77-1.02)
--- NOTE | 2017-09-23 07:56 | PN ---
Progress Note - Progress Note Date of Service: 09/23/17 SOAP: Subjective: Patient OOB to chair, continued complaints of moderate knee pain Objective: Vital Signs Temp Pulse Resp BP Pulse Ox 98.7 F 80 18 125/59 96 09/23/17 03:30 09/23/17 03:30 09/23/17 05:21 09/23/17 03:30 09/23/17 03:30 Laboratory Last Values Hgb 10.9 g/dl (14.0-18.0) L 09/23/17 05:07 Hct 32 % (42-52) L 09/23/17 05:07 Plt Count 156 10^3/ul (150-450) 09/23/17 05:07 MPV 8.6 um3 (7.4-10.4) 09/23/17 05:07 INR (Anticoag Therapy) 1.04 (0.77-1.02) H 09/23/17 05:07 Sodium 137 mmol/L (139-145) L 09/22/17 05:58 Potassium 3.8 mmol/L (3.5-5.0) 09/22/17 05:58 Chloride 102 mmol/L (101-111) 09/22/17 05:58 Carbon Dioxide 26 mmol/L (22-32) 09/22/17 05:58 Anion Gap 9 mmol/L (2-11) 09/22/17 05:58 BUN 13 mg/dL (6-24) 09/22/17 05:58 Creatinine 1.06 mg/dL (0.67-1.17) 09/22/17 05:58 Est GFR ( Amer) 88.6 (>60) 09/22/17 05:58 Est GFR (Non-Af Amer) 68.9 (>60) 09/22/17 05:58 BUN/Creatinine Ratio 12.3 (8-20) 09/22/17 05:58 Glucose 274 mg/dL (70-100) H 09/22/17 05:58 POC Glucose (mg/dL) 251 mg/dL (70-100) H 09/22/17 20:22 Hemoglobin A1c 7.6 % (4.0-5.6) H 09/22/17 05:58 Calcium 9.3 mg/dL (8.6-10.3) 09/22/17 05:58 incision: c/d; dressing changed PE: NVI Assessment: s/p right TKA Plan: 1) continue PT/OT- WBAT 2) hospitalist co-managing 3) Lovenox/Coumadin for DVT prophylaxis 4) home tomorrow am; follow-up with Leo in 2 weeks
[2017-09-23] MEDS: Enoxaparin(*) 30 MG/0.3 ML SYR SUBCUT SCH (08:25)
[2017-09-23] MEDS: Insulin LISPRO* 1 UNITS UNIT SUBCUT SCH ×4 (08:25→21:54)
[2017-09-23] MEDS: Magnesium Hydroxide LIQ* 30 ML UDC PO SCH ×2 (08:27→21:57)
[2017-09-23] MEDS: CMCS: Glimepiride (NF) 2 MG TAB PO SCH ×2 (08:28→17:29)
[2017-09-23] MEDS: Venlafaxine EXT RELEASE CAP* 37.5 MG PO SCH (08:28)
[2017-09-23] MEDS: Docusate CAP* 100 MG PO SCH ×2 (08:28→21:54)
[2017-09-23] MEDS: Atorvastatin* 10 MG TAB PO SCH (08:28)
[2017-09-23] MEDS: Losartan TAB* 25 MG PO SCH (08:28)
[2017-09-23] MEDS: oxyCODONE/Acetamin 5/325 MG* TAB PO PRN ×3 (08:29→17:46)
[2017-09-23] MEDS: Vitamin THERAPEUTIC TAB PO SCH (08:29)
[2017-09-23] MEDS: Morphine TAB Extended Release (*) 15 MG TAB.ER PO SCH ×2 (08:29→21:53)
[2017-09-23] MEDS: amLODIPine TAB* 5 MG PO SCH (08:29)
[2017-09-23] MEDS: metFORMIN* 500 MG TAB PO SCH ×2 (08:29→17:30)
--- NOTE | 2017-09-23 15:52 | PN ---
Subjective Date of Service: 09/23/17 Interval History: pain 09/02 has been very happy with care here excited to leave tomorrow notes he usually eats 2 meals per day and here he eats 3 Objective Active Medications: Acetaminophen (Tylenol Tab*) 650 mg PO Q4H PRN PRN Reason: PAIN OR TEMPERATURE Last Admin: 09/22/17 08:45 Dose: 650 mg Albuterol (Ventolin Hfa Inhaler*) 2 puff INH Q4H PRN PRN Reason: SOB/WHEEZING Amlodipine Besylate (Norvasc Tab*) 5 mg PO QAM [facility] Last Admin: 09/23/17 08:29 Dose: 5 mg Atorvastatin Calcium (Lipitor*) 10 mg PO DAILY [facility] Last Admin: 09/23/17 08:28 Dose: 10 mg Bisacodyl (Dulcolax Supp*) 10 mg OH DAILY PRN PRN Reason: constipation Cyclobenzaprine HCl (Flexeril Tab*) 10 mg PO TID PRN PRN Reason: SPASMS Last Admin: 09/22/17 14:21 Dose: 10 mg Dextrose (D50w Syringe 50 Ml*) 12.5 gm IV PUSH .FOR FS < 60 - SS PRN PRN Reason: FS < 60 Diphenhydramine HCl (Benadryl Iv*) 25 mg IV Q6H PRN PRN Reason: itching Docusate Sodium (Colace Cap*) 100 mg PO BID [facility] Last Admin: 09/23/17 08:28 Dose: 100 mg Enoxaparin Sodium (Lovenox(*)) 30 mg SUBCUT Q24H [facility] Last Admin: 09/23/17 08:25 Dose: 30 mg Epinephrine HCl (Epinephrine Amp 1 Mg/Ml*) 0.3 mg IM ONCE PRN PRN Reason: SOB/WHEEZING D/T ANAPHYLAXIS Glimepiride (Glimepiride (Nf)) 1 mg PO BID WITH MEALS [facility] Last Admin: 09/23/17 08:28 Dose: 1 mg Lactated Ringer's (Lactated Ringers 1000 Ml Bag*) 1,000 mls @ 100 mls/hr IV PER RATE [facility] Last Admin: 09/22/17 04:24 Dose: 100 mls/hr Insulin Human Lispro (Humalog*) 0 units SUBCUT ACHS [facility] PRN Reason: Protocol Last Admin: 09/23/17 13:12 Dose: 3 units Levothyroxine Sodium (Synthroid Tab*) 137 mcg PO DAILY@0600 [facility] Last Admin: 09/23/17 05:21 Dose: 137 mcg Losartan Potassium (Cozaar Tab*) 100 mg PO QAM [facility] Last Admin: 09/23/17 08:28 Dose: 100 mg Magnesium Hydroxide (Milk Of Magnesia Liq*) 30 ml PO BID [facility] Last Admin: 09/23/17 08:27 Dose: 30 ml Magnesium Hydroxide (Milk Of Magnesia Liq*) 30 ml PO Q6H PRN PRN Reason: constipation Metformin HCl (Glucophage*) 1,000 mg PO BID WITH MEALS [facility] Last Admin: 09/23/17 08:29 Dose: 1,000 mg Morphine Sulfate (Morphine Inj (Syringe)*) 2 mg IV Q2H PRN PRN Reason: PAIN - UNCONTROLLED Last Admin: 09/22/17 02:05 Dose: 2 mg Morphine Sulfate (Ms Contin(*)) 15 mg PO Q12H [facility] Last Admin: 09/23/17 08:29 Dose: 15 mg Multivitamins (Theragran Tab*) 1 tab PO DAILY [facility] Last Admin: 09/23/17 08:29 Dose: 1 tab Omeprazole (Prilosec Cap*) 20 mg PO 1800 [facility] Last Admin: 09/22/17 17:18 Dose: 20 mg Ondansetron HCl (Zofran Inj*) 4 mg IV Q6H PRN PRN Reason: nausea Oxycodone HCl (Roxycodone Tab*) 10 mg PO Q4H PRN PRN Reason: PAIN - SEVERE Last Admin: 09/23/17 10:35 Dose: 10 mg Oxycodone/Acetaminophen (Percocet 5/325 Tab*) 1 tab PO Q4H PRN PRN Reason: Pain -mild Last Admin: 09/23/17 12:29 Dose: 1 tab Pharmacy Profile Note (Coumadin Daily Reminder*) 1 note FOLLOW UP 1700 [facility] Last Admin: 09/22/17 17:18 Dose: 1 note Polyethylene Glycol/Electrolytes (Miralax*) 17 gm PO DAILY PRN PRN Reason: Constipation Prazosin HCl (Minipress Cap*) 1 mg PO QPM [facility] Last Admin: 09/22/17 17:17 Dose: 1 mg Venlafaxine HCl (Effexor Xr Cap*) 112.5 mg PO DAILY [facility] Last Admin: 09/23/17 08:28 Dose: 112.5 mg Warfarin Sodium (Coumadin Tab(*)) 10 mg PO ONCE ONE Stop: 09/23/17 17:01 Vital Signs - 8 hr 09/23/17 09/23/17 09/23/17 08:00 08:25 08:29 Temperature Pulse Rate Respiratory 22 18 18 Rate Blood Pressure (mmHg) O2 Sat by Pulse 94 Oximetry 09/23/17 09/23/17 09/23/17 10:34 10:35 11:08 Temperature 99.2 F Pulse Rate 85 Respiratory 20 20 18 Rate Blood Pressure 150/76 (mmHg) O2 Sat by Pulse 88 Oximetry 09/23/17 09/23/17 09/23/17 12:29 13:13 13:29 Temperature Pulse Rate 87 Respiratory 20 20 Rate Blood Pressure (mmHg) O2 Sat by Pulse 95 Oximetry 09/23/17 14:57 Temperature Pulse Rate Respiratory 20 Rate Blood Pressure (mmHg) O2 Sat by Pulse Oximetry Oxygen Devices in Use Now: None, CPAP Appearance: NAD Eyes: No Scleral Icterus, PERRLA Ears/Nose/Mouth/Throat: NL Teeth, Lips, Gums, Clear Oropharnyx, Mucous Membranes Moist Neck: NL Appearance and Movements; NL JVP, Trachea Midline Respiratory: Symmetrical Chest Expansion and Respiratory Effort, Clear to Auscultation Cardiovascular: RRR Abdominal: NL Sounds; No Tenderness; No Distention, No Hepatosplenomegaly Extremities: No Edema, - - right knee wrapped, iced Neurological: Alert and Oriented x 3 Result Diagrams: 09/23/17 05:07 09/22/17 05:58 Assess/Plan/Problems-Billing Mr Talavera is a 72 yo M who has a h/o MARJORIE, type II DM, HTN and sinus node dysfunction who is admitted following an elective R TKA. - Patient Problems (1) HTN (hypertension) Comment: slightly elevated but in pain discharge on home medication regimen -losartan, norvasc (2) MARJORIE (obstructive sleep apnea) Comment: Continue CPAP. (3) S/P total knee arthroplasty Comment: Management per orthopedics (4) Type II diabetes mellitus Comment: Increased number of meals here verus at home At home he states his sugars are 130-150. HbA1c 7.6 Continue metformin and glimeperide. Januvia on hold as it is non-formulary. Continue lispro sliding scale. Discharge on home regimen (5) DVT prophylaxis Comment: lovenox/coumadin Status and Disposition: will sign off please [phone] with additional questions
[2017-09-23] MEDS ORDERED: Warfarin TAB(*) 10 MG PO ONE (17:00)
[2017-09-23] MEDS: Prazosin CAP* 1 MG PO SCH (17:30)
[2017-09-23] MEDS: Omeprazole CAP* 20 MG PO SCH (17:30)
[2017-09-24 05:41] LABS: Hematocrit 31 % (42-52); Hemoglobin 10.6 g/dl (14.0-18.0); Mean Platelet Volume 8.9 um3 (7.4-10.4); Platelet Count 157 10^3/ul (150-450)
[2017-09-24 05:47] LABS: INR 1.04 (0.77-1.02)
[2017-09-24] MEDS: Levothyroxine TAB* 137 MCG TAB PO SCH (06:21)
[2017-09-24] MEDS: metFORMIN* 500 MG TAB PO SCH (07:16)
[2017-09-24] MEDS: oxyCODONE TAB* 5 MG TAB PO PRN (07:16)
[2017-09-24] MEDS: CMCS: Glimepiride (NF) 2 MG TAB PO SCH (07:17)
[2017-09-24 07:44] VITALS: BP 145/69
[2017-09-24] MEDS: Insulin LISPRO* 1 UNITS UNIT SUBCUT SCH (08:00)
[2017-09-24] MEDS: Enoxaparin(*) 30 MG/0.3 ML SYR SUBCUT SCH (08:01)
[2017-09-24] MEDS: Losartan TAB* 25 MG PO SCH (08:02)
[2017-09-24] MEDS: Vitamin THERAPEUTIC TAB PO SCH (08:02)
[2017-09-24] MEDS: Docusate CAP* 100 MG PO SCH (08:02)
[2017-09-24] MEDS: Atorvastatin* 10 MG TAB PO SCH (08:02)
[2017-09-24] MEDS: amLODIPine TAB* 5 MG PO SCH (08:02)
[2017-09-24] MEDS: Venlafaxine EXT RELEASE CAP* 37.5 MG PO SCH (08:03)
[2017-09-24] MEDS: Morphine TAB Extended Release (*) 15 MG TAB.ER PO SCH (08:03)
[2017-09-24] MEDS: Magnesium Hydroxide LIQ* 30 ML UDC PO SCH (08:03)
--- NOTE | 2017-09-24 12:12 | DS ---
DISCHARGE SUMMARY: DATE OF ADMISSION: 09/21/17 DATE OF DISCHARGE: 09/24/17 ATTENDING PROVIDER: Dr. Bailey * (DICTATED BY JAY CANCINO) PRINCIPAL DIAGNOSIS: Severe endstage osteoarthritis of the right knee. DISCHARGE DIAGNOSIS: Severe endstage osteoarthritis of the right knee. HISTORY OF PRESENT ILLNESS: Mr. Talavera is a 72-year-old gentleman with complaints of severe right knee pain. He failed conservative management and elected to proceed with a right total knee arthroplasty with Dr. Bailey. HOSPITAL COURSE: Mr. Talavera was admitted electively to the hospital on 09/21/17 and underwent a right total knee arthroplasty. He tolerated the procedure well without complications. Postoperatively, he was placed on Lovenox and Coumadin for DVT prophylaxis. On postoperative day 1, his H and H was 12 and 36; on postoperative day 2, at 10 and 32, and on postoperative day 3, at 10 and 31. His INR went from 0.97 to 1.04. At the time of discharge, he was afebrile and his vital signs were stable and he was discharged home in stable condition. DISCHARGE MEDICATIONS: 1. Coumadin 2 mg tabs. He was asked to 10 mg Monday night. 2. Percocet 5/325 one to two tabs every 4 to 6 hours. 3. Extended release morphine 15 mg every 12 hours as needed for pain. 4. Colace 100 mg 2 to 3 tablets daily for constipation. 5. Ventolin inhaler. 6. Norvasc 5 mg daily. 7. Lipitor 10 mg daily. 8. Glimepiride 1 mg twice a day. 9. Humalog. 10. Levothyroxine 137 mcg daily. 11. Cozaar 100 mg daily. 12. Metformin 1000 mg twice daily. 13. Prilosec 20 mg daily. 14. Effexor 112.5 mg daily. PHYSICAL EXAM UPON DISCHARGE: He was afebrile. His vital signs were stable. His wound was clean, dry, and healing well. He was able to dorsiflex and plantarflex. He had intact sensation and 2+ dorsalis pedis pulses and he was ambulating well with the aid of a walker. DISCHARGE INSTRUCTIONS: He was discharged to home. He was given prescription for Percocet and extended release morphine for pain. He was given Coumadin for DVT prophylaxis and asked to take 10 mg tonight and recheck his INR tomorrow. He can shower starting Monday. He can let soap and water run over the incision , pat the area dry. He can either leave it open to the air or rewrap with a clean RADHA wrap. He will follow up with Dr. Bailey in 2 weeks. He is weightbearing as tolerated. JAY CANCINO [id number]/[facility] #: [id number] BR[place]
== END 2017-09-24 14:25 | disposition home health service (06) | DRG 470 ==
LOC: AA 09:51 → SSU 18:04
PROVIDERS: ADMIT Orthopaedic Surgery Adult Reconstructive Orthopaedic Surgery; ATTEND Orthopaedic Surgery Adult Reconstructive Orthopaedic Surgery
PROC: 0SRC0J9 Replacement of Right Knee Joint with Synthetic Substitute, Cemented, Open Approach (ICD-10-PCS; principal; 2017-09-21 13:00)
DX: M17.31 Unilateral post-traumatic osteoarthritis, right knee (principal); E03.9 Hypothyroidism, unspecified; E66.9 Obesity, unspecified; F43.10 Post-traumatic stress disorder, unspecified; E11.65 Type 2 diabetes mellitus with hyperglycemia; R53.82 Chronic fatigue, unspecified; G47.33 Obstructive sleep apnea (adult) (pediatric); M25.761 Osteophyte, right knee; J44.9 Chronic obstructive pulmonary disease, unspecified; I49.5 Sick sinus syndrome; Z96.611 Presence of right artificial shoulder joint; I10 Essential (primary) hypertension; X58.XXXS Exposure to other specified factors, sequela; Z88.8 Allergy status to other drugs, medicaments and biological substances; Z91.030 Bee allergy status; Z83.3 Family history of diabetes mellitus; Z82.3 Family history of stroke; Z80.0 Family history of malignant neoplasm of digestive organs; Z80.3 Family history of malignant neoplasm of breast; Z79.01 Long term (current) use of anticoagulants; Z79.4 Long term (current) use of insulin; Z68.39 Body mass index [BMI] 39.0-39.9, adult; Z82.61 Family history of arthritis; T14.90XS Injury, unspecified, sequela; Z87.891 Personal history of nicotine dependence
CPT/HCPCS: 36415; 80048; 83036; 85014; 85018; 85049; 85610; 88305; 88311; A9270-GY; C1776; G8978-GP-CI; G8978-GP-CJ; G8979-GP-CH; G8979-GP-CI; G8980-GP-CI; G8987-GO-CK; G8988-GO-CI; J0461; J0690; J1100; J1650; J2250; J2270; J2405; J2704; J2795; J3010

== ENCOUNTER 2017-11-11 08:41 | Emergency (ER) | payer MEDICARE, OTHER ==
--- OUTSIDE RECORDS SUMMARY | 2017-11-11 08:49 | XMS REPORT ---
:1945 External Reference #:[id number] Author Organization [facility] Address [address] [address] Phone [phone] Care Team Providers Name Role Phone Aba Avitia MD Primary Care Physician Unavailable Payers Type Date Identification Numbers Payment Provider Subscriber Medicare Primary Effective: Policy Number: Medicare Faisal Artish 1998 [id number] PayID: [id number] [address] [place] [address] [employer] Part B Effective: 2003 Policy Number: Inc. Abdulaziz Faisal Artish [id number] Expires: 2014 Group Number: [id number] [id number] PayID: [place] [address] Commercial Policy Number: [id number] Lifetime Benefit Solution Faisal Aaron Ilan Group Number: [id number] [address] PayID: [place] [address] Problems Date Description Provider Status Onset: 09/15/2011 [...] M.D. Active the pelvic region and thigh Onset: 10/09/2017 Aftercare following joint Tamela Bailey M.D. Active replacement surgery Onset: 10/09/2017 Arthroplasty of knee Tamela Bailey M.D. Active Social History Type Date Description Comments Marital Status Lives With Occupation Retired Cigarette Use Former Cigarette Smoker ETOH Use Drinks Alcoholic Beverages Rarely Smoking Patient is a former smoker Currently chews tobacco Recreational Drug Use Denies Drug Use Daily Caffeine Consumes on average 1 cup of regular coffee per day Exercise Type/Frequency Exercises rarely Patient is unable to exercise regular due to R knee. Allergies, Adverse Reactions, Alerts Date Description Reaction Status Severity Comments 09/02/2003 Bee Stings active 12/10/2003 Niaspan active flushing 05/29/2014 Zoloft active Moderate 04/29/2015 Trazodone active 10/02/2017 Oxycodone active Medications Medication Date Status Form Strength Qnty SIG Indications Ordering Provider Glimepiride 04/21/ Active Tablets 1mg Take One Sadi 2016 Tablet By MD Aba Mouth Two Times A Day Amlodipine 06/15/ Active Tablets 5mg 90tab 1 by mouth Lance Besylate 2015 s every day [address]ha [address] M.D. Metformin HCL 05/28/ Active Tablets 500mg 60tab 2 by mouth Other 2014 s twice a day Ordering Provider Prazosin HCL 06/17/ Active Capsules 1mg 1 po hs Lance [address] M.D. Cpap 12/08/ Active Tablets q Lance Street M.D. Levothyroxine / Active Tablets 137mcg [...] by mouth Unknown 0000 every day ( On hold 5 days prior to surgery ) Extra Strength / Active Unknown Tylenol 0000 Warfarin Sodium 10/16/ Hx Tablets 2mg 14tab take 1-5 Dirk 2017 - s tablets as Marcela 10/28/ directed M.D. 2017 daily. Tramadol HCL 10/02/ Hx Tablets 50mg 90tab 1-2 tablet Tamela 2017 - s by mouth Leo, 10/28/ every 4-6 M.D. 2008 hours as needed pain Percocet 09/23/ Hx Tablets 5-325mg 90tab 1-2 by Tamela 2017 - s mouth every Leo, 10/01/ 6 hours as M.D. 2018 needed pain Morphine 09/23/ Hx Caps ER 10mg 14cap take one Tamela Sulfate ER 2017 - 24HR s tab by Leo, 10/28/ mouth every M.D. 2018 12 hours as needed. Coumadin 09/11/ Hx Tablets 2mg 90tab take 1-3 Tamela 2018 - s tabs by Leo, 10/28/ mouth at 5 M.D. 2018 at night as directed ( Pt states will start after surgery) Colace 09/11/ Hx Capsules 100mg 90cap 1 tab by Tamela 2017 - s mouth 2-3 Leo, 10/28/ times a day M.D. 2018 as needed Meloxicam 09/04/ Hx Tablets 15mg 30tab 1 by mouth M25.552 Tamela 2018 - s every day Leo, 10/01/ M.D. 2017 [place] 05/11/ Hx Tablets 5-325mg 60tab 1 tabs by Tamela 2017 - s mouth every Leo, 10/08/ 12 hours M.D. 2017 Percocet 11/03/ Hx Tablets 5-325mg 45tab 1-2 by Tamela 2016 - s mouth every Leo, 02/28/ 6 hours as M.D. 2016 needed pain Naproxen 09/26/ Hx Tablets 500mg 30tab 1 tablet M25.561 Tamela 2017 - s with food Leo, 02/28/ by mouth M.D. 2016 twice a day Venlafaxine HCL 06/13/ Hx Tablets 37.5mg 3 tabs by Unknown 2015 - mouth daily 2017 Amlodipine 05/16/ Hx Tablets 2.5mg 90tab 1 by mouth Lance Besananda 2015 - s every day F. 06/15/ Yenifer, 2015 M.D. Crestor 05/28/ Hx Tablets 20mg 1 by mouth Other 2013 - every day Ordering 05/29/ Provider 2013 Crestor 05/28/ Hx Tablets 10mg 1 by mouth Other 2013 - every day Ordering 04/28/ Provider 2014 Tramadol HCL 10/24/ Hx Tablets 50mg 40tab 1 tab every Rom 2013 - s 6 hours as , 10/24/ needed pain M.D. 2013 Naproxen 10/24/ [...] Tablets 5-325mg 15tab take 1 Rom 2012 tablet po Douglas, 03/18/ tid prn M.D. 2012 pain Keflex 01/25/ Hx Capsules 500mg 28cap 1 po qid x Rom 2012 7days Douglas 01/25/ M.Toya. 2012 Bactrim DS 01/25/ Hx Tablets 800-160mg [...] s of 10/08/09 F. 10/09/ Yenifer, 2009 M.D. Januvia 07/02/ Hx Tablets 50mg 90tab qd PO Lance 2008 - s F. 10/02/ Yenifer, 2009 Chet. Ambien 09/19/ Hx Tablets 10mg. 1 PO QHS Lance 2007 - prn F. 05/25/ Yenifer, 2008 M.D. Metformin HCL 09/19/ Hx Tablets 500mg 1/2 PO bid Lance 2007 - F. 07/02/ Yenifer, 2008 M.D. Omeprazole 03/23/ Hx Capsules 20mg 100ca 1 po qd Lance 2006 - DR ps F. 01/27/ Yenifer, 2010 M.D. Oxycodone-Apap 03/14/ Hx Tablets 5/325 2 bid Lance 2006 - F. 01/27/ Yenifer, 2010 M.D. Metformin HCL 03/14/ Hx Tablets 500mg 1/5 PO bid Lance 2006 - F. 09/19/ Yenifer, 2007 M.Toya. Indomethacin 03/14/ Hx Capsules 25mg 90cap prn Lance 2006 - s F. 07/02/ Mauser, 2008 M.D. Nexium 03/14/ Hx Capsules 40mg 90cap 1 po qd Lance 2006 - DR s . 03/23/ Mauser, 2006 M.Toya. Zocor 11/14/ Hx Tablets 80mg 1 PO qd Lance 2006 - . 11/14/ Mauser, 2006 M.D. Atenolol 11/08/ Hx Tablets 25mg 1/2 PO qd Lance 2006 - . 12/06/ Mauser, 2006 M.Toya. Crestor 08/30/ Hx Tablets 20mg 90tab 2 PO qd Lance 2006 - s . 01/22/ Mauser, 2009 M.D. KCL 06/28/ Hx Tablets 20Meq 30tab 1 PO qd Lance 2006 - s . 12/06/ Mauser, 2006 M.D. Clonazepam 08/25/ Hx Tablets 1mg 1 po in am 2005 - and 1 in pm . 01/27/ Mauser, 2010 M.Toya. Zocor 08/25/ Hx Tablets 20mg one q hs Lance 2005 - . 11/14/ Mauser, 2006 M.Toya. Risperdal 08/25/ Hx Tablets 1mg 30tab One QHS Lance 2005 - s . 09/19/ Mauser, 2007 M.D. Furosemide 08/25/ Hx Tablets 20mg 1 po qd Lance 2005 - . 08/03/ Mauser, 2009 M.Toya. Ambien 08/25/ Hx Tablets 5mg 30tab Take One Lance 2005 - Tablet At F. 09/19/ Bedtime Mauser, 2007 M.D. Celexa 08/25/ Hx Tablets 40mg 30tab 2 qam Lance 2005 - s . 10/02/ Mauser, 2009 M.D. Wellbutrin SR 08/25/ Hx Tablets 150mg 60tab 2 qam Lance 2005 - s . 01/22/ Mauser, 2009 M.D. Indomethacin 08/25/ Hx [...] 2003 - F. 12/09/ Mauser, 2003 M.D. [place] 3 Fish 10/08/ Hx Capsules 1 qd [...] - Injection one time / F. 08/30/ Mauser, 2006 M.D. Gaviscon 09/01/ Hx Capsules 2 tablets Lance 2003 - prn . 12/09/ user, 2003 M.D. Nitrolingual 09/01/ Hx Aerosol 0.4mg 1unit 1 PO qd prn Lance Pumpspray 2003 - s . 03/14/ user, 2006 M.D. Furosemide 08/31/ Hx Tablets 40mg 30tab 1 po qd Lance 2003 - s F. 10/08/ user, 2003 M.D. Atenolol 08/31/ Hx Tablets 50mg 90tab 1 po qd Lance 2003 - s F. 09/01/ Mauser, 2003 M.D. Bextra 08/31/ Hx Tablets 20mg 30tab 1 po qd Lance 2003 - s F. 10/08/ Mauser, 2003 M.D. Trazodone 08/31/ Hx Tablets 100mg 30tab one daily Lance 2003 - s at hs F. 12/09/ Mauser, 2003 M.D. Percocet 08/31/ Hx Tablets 10mg;325 1 po q6h Lance 2003 - mg prn F. 12/08/ prescribed Mauser, [address] Rodriguez schreiber Paxil CR 08/31/ Hx Tablets 25mg 2 po qd Lance 2003 - . 10/08/ user, 2003 Jennifer Buspirone 08/31/ Hx Tablets 15mg 30tab 1 po qd Lance 2003 s F. 08/25/ user, 2005 Jennifer Levoxyl 08/31/ Hx Tablets 125mcg 30tab 1 PO qd Lance 2003 s . 08/03/ user, 2009 Jennifer HCTZ 08/31/ Hx Tablets 25mg 30tab 1 po qd Lance 2003 s . 12/08/ r, 2004 Jennifer Lipitor 08/31/ Hx Tablets 10mg 30tab 1 po qd Lance 2003 s . 12/08/ r, 2004 Jennifer Vitamins 08/31/ Hx Caplets 30cap 1 po qd Lance Multiple 2003 s . 08/25/ , 2005 Jennifer Aspirin 08/31/ Hx Chewtabs 81mg 1 po qd Lance 2003 - . 08/25/ user, 2005 Jennifer Risperdal 00/ Hx Tablets 1mg 1 PO qd Unknown 2009 Zolpidem / Hx Tablets 10mg 30tab 1 tab po Unknown Tartrate - s qhs prn 2008 Amlodipine / Hx Tablets 5mg 30tab 1 po qd Unknown Besylate 0000 - s 2011 Trazodone HCL 00/ Hx Tablets 50mg 30tab 1 po qhs Unknown 0000 - s 2009 Lasix /00/ Hx Tablets 40mg 30tab 1 po qd Unknown 0000 - s 2009 Levothyroxine / Hx Tablets .15mg 30tab 1 po qd Unknown Sodium - s 2009 Lasix /00/ Hx Tablets 60mg 1 po qd Unknown - 2009 Topiramate / Hx Tablets 200mg 1 po qhs Unknown 2012 Citalopram 00/00/ Hx Tablets 40mg 1 qam Unknown Hydrobromide - 2010 Lasix 00/00/ Hx Tablets 40mg 1 po qd Unknown 2009 Minipress 00/00/ Hx Capsules 2mg 30cap 1 po at hs Unknown - s 2009 Sitagliptin 00/00/ Hx 100mg 1 po qd Unknown 2009 Zolpidem /00/ Hx Tablets 10mg 60tab 1 tab po Unknown Tartrate hs prn 2011 Januvia 00/00/ Hx Tablets 100mg 1 po qd Unknown 2009 Asa 00/00/ Hx 81mg one po qd Unknown 2010 Bupropion HCL 00/ Hx Tablets ER 300mg one po qd Unknown ER - HR 2011 Levothyroxine 00/ Hx Tablets 125mcg 1 po qd Unknown Sodium 2010 Lisinopril 00/ Hx Tablets 10mg 1 po qd Unknown 2010 Prazosin HCL 00/00/ Hx Capsules 2mg 30cap 1 po at hs Unknown s 2010 Risperidone /00/ Hx Tablets 2mg one half at Unknown 0000 - bedtime 2011 Sitagliptin 00/00/ Hx 100mg one po qd Unknown Phosphate 2010 Rosuvastatin CA 00/ Hx 40mg one po qd Unknown 2010 Lisinopril /00/ Hx Tablets 5mg 1 po qd Unknown 2015 Crestor /00/ Hx Tablets 20mg 30tab 1 po qd Unknown - s 2012 Eszopliclone 00/ Hx 2mg one po hs Unknown 2011 Prazosin HCL 00/00/ Hx Capsules 1mg 3 po qd Unknown 2012 Clonazepam /00/ Hx Tablets 0.5mg as directed Unknown 2012 Amlodipine /00/ Hx Tablets 2.5mg 1 tablet Unknown Besylate 0000 - by mouth 06/16/ once daily 2013 hold as of 12.4.14 Venlafaxine HCL 0000/ Hx Tablets 75mg 30tab 1 po qd Unknown 0000 - s 2014 Fentanyl 00/00/ Hx Patches 25mcg/HR 10uni apply one Unknown 0000 - 72HR ts patch once 03/18/ every 3 2012 days Topiramate / Hx Tablets 25mg 1 tablet po Unknown 0000 - qhs 2013 Ibuprofen / Hx Tablets 200mg 100ta 3 tab po Unknown 0000 - bs daily will 09/10/ take up to 2018 6 tab daily as needed Venlafaxine HCL [...] M.D. Vital Signs Date Vital Result Comment 10/30/2017 Height 70 inches 5'10" Weight 260.00 lb Heart Rate 65 /min BP Systolic 138 mmHg BP Diastolic 73 mmHg Body Temperature 94.5 F BMI (Body Mass Index) 37.3 kg/m2 10/09/2017 Height 70 inches 5'10" Weight 260.00 lb BP Systolic 160 mmHg BP Diastolic 84 mmHg Body Temperature 98.0 F Pain Level 3 BMI (Body Mass Index) 37.3 kg/m2 10/02/2017 Height 70 inches 5'10" Weight 270.00 lb BP Systolic 136 mmHg BP Diastolic 80 mmHg Body Temperature 98.0 F BMI (Body Mass Index) 38.7 kg/m2 09/28/2017 Height 70 inches 5'10" Weight 276.00 lb BP Systolic 140 mmHg BP Diastolic 88 mmHg Respiratory Rate 20 /min Body Temperature 96.2 F Pain Level 7 BMI (Body Mass Index) 39.6 kg/m2 09/18/2017 Height 70 inches 5'10" Weight 276.00 lb with shoes Heart Rate 60 /min BP Systolic Sitting 112 mmHg Lue lg cuff BP Diastolic Sitting 60 mmHg Lue lg cuff BP Systolic Standing 120 mmHg Lue lg cuff BP Diastolic Standing 70 mmHg Lue lg cuff Respiratory Rate 17 /min BMI (Body Mass Index) 39.6 kg/m2 09/11/2017 Height 70 inches 5'10" Weight 277.00 [...] Test Date Test Result H/L Range Note Inr/Protime 10/16/2017 Inr 2.34 High 0.77-1.02 1 Inr/Protime 10/12/2017 Inr 1.55 High 0.77-1.02 2 Inr/Protime 10/09/2017 Inr 1.67 High 0.77-1.02 Inr/Protime 10/05/2017 Inr 1.21 High 0.77-1.02 3 Laboratory test finding 09/28/2017 Erythrocyte Sed Rate 93 mm/Hr High 0- 40 C Reactive Protein 83.68 mg/L High < 5.00 4 CBC Auto Diff 09/28/2017 White Blood Count 11.1 10^3/uL High 3.5-10.8 Red Blood Count 3.77 10^6/uL Low 4.0-5.4 Hemoglobin 11.6 g/dL Low 14.0-18.0 Hematocrit 35 % Low 42-52 Mean Corpuscular Volume 92 fL 80-94 Mean Corpuscular Hemoglobin 31 pg 27-31 Mean Corpuscular HGB Conc 34 g/dL 31-36 Red Cell Distribution Width 13 % 10.5-15 Platelet Count 358 10^3/uL 150-450 Mean Platelet Volume 8.8 um3 7.4-10.4 Manual Differential 09/28/2017 Immature Granulocytes 1 % 0-9 Neutrophil % 57 % 38-83 Lymphocytes % 23 % Low 25-47 Monocytes % 10 % High 0-7 Eosinophils % 8 % High 0-6 Basophil % 1 % 0-2 Myelocytes % 1 % 0-1 Abs Neutrophils 6.3 10^3/uL 1.5-7.7 Abs Lymphocytes 2.6 10^3/uL 1.0-4.8 Abs Monocytes 1.1 10^3/uL High 0-0.8 Abs Eosinophils 0.9 10^3/uL High 0-0.6 Abs Basophils 0.1 10^3/uL 0-0.2 RBC Morphology Normal Normal Inr/Protime 09/28/2017 Inr 1.25 High 0.77-1.02 Inr/Protime 09/25/2017 Inr 1.10 High 0.77-1.02 5 Inr/Protime 09/11/2017 Inr 0.88 0.77-1.02 Laboratory test finding 09/11/2017 Partial Thrombo Time 30.8 seconds 26.0 -36.3 PTT Type & Screen 09/11/2017 Patient Blood Type O Positive Antibody Screen NEGATIVE Comp Metabolic Panel 09/11/2017 Sodium 137 mmol/L 133-145 Potassium 4.7 mmol/L 3.5-5.0 Chloride 104 mmol/L 101-111 Co2 Carbon Dioxide 24 mmol/L 22-32 Anion Gap 9 mmol/L 2-11 Glucose 130 mg/dL High 70-100 Blood Urea Nitrogen 10 mg/dL 6-24 Creatinine 0.95 mg/dL 0.67-1.17 BUN/Creatinine Ratio 10.5 8-20 Calcium 9.8 mg/dL 8.6-10.3 Total Protein 6.4 g/dL 6.4-8.9 Albumin 4.3 g/dL 3.2-5.2 Globulin 2.1 g/dL 2-4 Albumin/Globulin Ratio 2.0 1-3 Total Bilirubin 0.50 mg/dL 0.2-1.0 Alkaline Phosphatase 65 U/L 34-104 Alt 60 U/L High 7-52 Ast 37 U/L 13-39 Egfr Non- 78.2 >60 Egfr 100.5 >60 6 Urine Culture And Sensitivities 09/11/2017 Urine Culture SEE RESULT BELOW 7 Urinalysis Profile 09/11/2017 Urine Color Yellow Urine Appearance Clear Urine Specific Banks 1.005 Low 1.010-1.030 Urine pH 6.0 5-9 Urine Urobilinogen Negative Negative Urine Ketones Negative Negative Urine Protein Negative Negative Urine Leukocytes Negative Negative Urine Blood Negative Negative * * Negative 8 Urine Nitrite Negative Negative Urine Bilirubin Negative Negative Urine Glucose Negative Negative CBC Auto Diff 09/04/2017 White Blood Count [...] C Reactive Protein 1.80 mg/L < 5.00 9 Erythrocyte Sed Rate 16 mm/Hr 0-40 Laboratory test finding 11/03/2016 Point of Care 173 mg/dL High 74-106 10 Glucose Inr/Protime 10/28/2016 Inr 0.86 Low 0.89-1.11 Laboratory test finding 10/28/2016 Partial Thrombo Time 29.6 seconds 26.0 -36.3 PTT CBC No Diff 10/28/2016 White Blood Count 8.7 10^3/uL 3.5-10.8 Red Blood Count 4.68 10^6/uL 4.0-5.4 Hemoglobin 14.3 g/dL 14.0-18.0 Hematocrit 43 % 42-52 Mean Corpuscular Volume 92 fL 80-94 Mean Corpuscular Hemoglobin 31 pg 27-31 Mean Corpuscular HGB Conc 33 g/dL 31-36 Red Cell Distribution Width 13 % 10.5-15 Platelet Count 204 10^3/uL 150-450 Mean Platelet Volume 9 um3 7.4-10.4 Urine Culture And 10/28/2016 Urine Culture SEE RESULT BELOW 11 Sensitivities Comp Metabolic Panel 10/28/2016 Albumin 4.3 g/dL [...] Egfr Non- 81.3 >60 Egfr 104.6 >60 12 Type & Screen 10/28/2016 Patient Blood Type O Positive Antibody Screen NEGATIVE Urinalysis Profile 10/28/2016 Urine Color Straw Urine Appearance Clear Urine Specific Banks 1.003 Low 1.010-1.030 Urine pH 6.0 5-9 Urine Urobilinogen Negative Negative Urine Ketones Negative Negative Urine Protein Negative Negative Urine Leukocytes Trace Negative Urine Blood Negative Negative Urine Nitrite Negative Negative Urine Bilirubin Negative Negative Urine Glucose Negative Negative Urine White Blood Cell Trace(0-5/hpf) Absent Urine Red Blood Cell Absent Absent Urine Bacteria Absent Absent Laboratory test finding 06/05/2013 Troponin I 0 ng/mL 0-0.06 13 Vitamin B12 575 pg/mL 180-914 Folate > 24.8 ng/mL High 2-16 Blood Urea Nitrogen 21 mg/dL 6-24 Creatinine 06/05/2013 Creatinine 1.20 mg/dL 0.50-1.40 Egfr Non- 60.6 >60 Egfr 77.9 >60 14 Basic Metabolic Panel 01/11/2013 Sodium 139 mmol/L 133-145 Potassium 4.0 mmol/L 3.5-5.0 Chloride 110 mmol/L 101-111 Co2 Carbon Dioxide 24.0 mmol/L 22-32 Anion Gap 5.0 mmol/L 2-11 Glucose 117 mg/dL High 70-100 Blood Urea Nitrogen 12 mg/dL 6-24 Creatinine 1.10 mg/dL 0.50-1.40 BUN/Creatinine Ratio 10.9 8-20 Calcium 9.4 mg/dL 8.1-9.9 Egfr Non- 67.0 >60 Egfr 86.1 >60 15 CBC Auto Diff 01/11/2013 White Blood Count [...] Color Yellow Urine Appearance Clear Urine Specific Banks 1.013 1.010-1.030 Urine Esterase Negative Negative Urine [...] Egfr Non- 74.8 >60 Egfr 96.1 >60 16 Lipid Profile (Trig/Chol/HDL) 12/10/2012 Triglycerides 81 mg/dL 40-200 Cholesterol 115 mg/dL Less than 200 HDL Cholesterol 45 mg/dL 40-60 17 Cholesterol/HDL Ratio 2.6 Average 1-4.44 LDL Cholesterol 53.8 Less Than 100 18 Laboratory test finding 12/10/2012 Hemoglobin A1c 6.4 % High Less than 6.0 19 TSH (Thyroid Stimulating Horm) 2.77 miu/mL 0.34-5.60 Laboratory test finding 09/22/2011 TSH 1.78 MIU/ML 0.34-5.60 Hemoglobin A1c 6.2 % High Less Than 6.0 20 Lipid Profile (Trig/Chol/HDL) 09/22/2011 Triglyceride 94 mg/dL 40-200 Cholesterol 113 mg/dL Less Than 200 21 High Density Lipoprotein 37 mg/dL Low 40-60 22 Cholesterol/HDL Ratio 3.05 AVERAGE 1-4.97 Low Density Lipoprotein 57 mg/dL Less Than 100 23 Comp Metabolic Panel 09/22/2011 Sodium 142 mmol/L 135-145 Potassium 4.0 mmol/L 3.5-5.0 Chloride 113 mmol/L High 101-111 Co2 (Carbon Dioxide) 26.0 mmol/L 22-32 Anion Gap 3.0 mmol/L 2-11 24 Glucose 92 mg/dL 70-100 BUN 10 mg/dL 6-24 Creatinine 1.2 mg/dL 0.50-1.40 One Over Creatinine 0.83 BUN/Creatinine Ratio 8.3 8-20 Calcium 9.4 mg/dL 8.1-9.9 Total Protein 6.1 GM/DL Low 6.2-8.1 Albumin 4.0 GM/DL 3.2-5.2 Globulin 2.1 GM/DL 2-4 Albumin/Globulin Ratio 1.9 1-3 Bilirubin Total 0.9 mg/dL 0.4-1.5 25 Alkaline Phosphatase 67 U/L 39-117 Alt (SGPT) 30 U/L 17-63 Ast (Sgot) 20 U/L 12-42 eGFR Non- 60.8 > 60 eGFR 78.1 > 60 26 CBC No Diff 09/22/2011 White Blood Count 6.1 CUMM 4.8-10.8 Red Cell Count 4.42 CUMM Low 4.6-6.2 Hemoglobin 14.6 g/dL 14.0-18.0 Hematocrit 42 % 42-52 Mean Corpuscular Volume 94 um3 80-94 Mean Corpuscular Hemoglob 33 pg High 27-31 Mean Corpuscular HGB Cone 35 g/dL 32-36 Redcell Distribution WDTH 13 % 10.5-15 Platelet Count 165 CUMM 150-450 Mean Platelet Volume 9.8 um3 7.4-10.4 CBC No Diff 01/14/2011 White Blood Count [...] mmol/L 22-32 Anion Gap 7.0 mmol/L 2-11 27 Glucose 125 mg/dL High 70-100 BUN 12 mg/dL 6-24 Creatinine 1.20 mg/dL 0.50-1.40 One Over Creatinine 0.80 BUN/Creatinine Ratio 10.0 8-20 Calcium 9.6 mg/dL 8.1-9.9 Total Protein 6.5 GM/DL 6.2-8.1 Albumin 4.3 GM/DL 3.2-5.2 Globulin 2.2 GM/DL 2-4 Albumin/Globulin Ratio 2.0 1-3 Bilirubin Total 0.7 mg/dL 0.4-1.5 28 Alkaline Phosphatase 73 U/L 39-117 Alt (SGPT) 48 U/L 17-63 Ast (Sgot) 37 U/L 12-42 eGFR Non- 61.0 > 60 eGFR 78.4 > 60 29 Lipid Profile (Trig/Chol/HDL) 01/14/2011 Triglyceride 166 mg/dL 40-200 Cholesterol 126 mg/dL Less Than 200 30 High Density Lipoprotein 36 mg/dL Low 40-60 31 Cholesterol/HDL Ratio 3.50 AVERAGE 1-4.97 Low Density Lipoprotein 57 mg/dL Less Than 100 32 Laboratory test finding 01/14/2011 TSH 1.33 MIU/ML 0.34-5.60 Hemoglobin A1c 7.0 % High Less Than 6.0 33 Basic Metabolic Panel 07/14/2006 One Over Creatinine 0.83 34 Anion Gap 7.0 mmol/L 2-11 34, 35 BUN 13 mg/dL 6-24 34 Calcium 9.5 mg/dL 8.7-10.2 34 Chloride 107 mmol/L 101-111 34 Co2 (Carbon Dioxide) 28.0 mmol/L 22-32 34 Glucose 93 mg/dL 70-105 34 Potassium 4.5 mmol/L 3.5-5.0 34 Sodium 142 mmol/L 135-145 34 BUN/Creatinine Ratio 10.8 8-20 34 Creatinine 1.2 mg/dL 0.5-1.4 34 Laboratory test finding 07/14/2006 Magnesium 2.2 mg/dL 1.7-2.6 34 1 CALL RESULTS TO [phone] CALL RESULTS TO [phone] FAX RESULTS TO [phone] PLEASE CALL RESULTS TO [facility] [phone] AND FAX TO [phone] 4 Acute inflammation: >10.[address] BAILEY AT [phone] 6 Because ethnic data is not always [...] 5 Kidney failure <15 (or dialysis) 7 SEE RESULT BELOW Name: FAISAL TALAVERA : [address]: Tamela Bailey MD Acct: [id number] Unit: [id number] AGE: 72 Location: [facility] Re09/11/17 SEX: M Status: REG REF SPEC: [id number] KATYA: 09/11/17-[address] [facility] [address]: Tamela Bailey MD REQ: [id number] RECD: 09/11/17 STATUS: COMP BENNIEHR DR: Aba Avitia MD _ SOURCE: URINE SPDESC: ORDERED: Urine Culture QUERIES: Urine Source: Clean Catch Procedure Result Reported Site Urine Culture Final 09/12/17- 1206 ML No Growth (<1,000 CFU/mL) * ML - Main Lab . END OF REPORT DEPARTMENT OF PATHOLOGY, [address] [place] [address] Kel Owen M.D. Director [facility] # [id number] *Ascorbic acid is present which may interfere with detection of blood. 9 Acute inflammation: >10.00 10 Stunner: [id number] 11 SEE RESULT BELOW Name: FAISAL TALAVERA : [address]: Tamela Bailey MD Acct: [id number] Unit: [id number] AGE: 71 Location: [facility] Re10/28/16 SEX: M Status: REG REF SPEC: [id number] KATYA: 10/28/[address]: Tamela Bailey MD REQ: [id number] RECD: 10/28/16 STATUS: COMP _ SOURCE: URINE SPDESC: ORDERED: Urine Culture QUERIES: Urine Source: Random Procedure Result Reported Site Urine Culture Final 10/30/16- 823 ML No Growth (<1,000 CFU/mL) * ML - MAIN LAB (PSC1) . END OF REPORT * ML=Testing performed at Main Lab DEPARTMENT OF PATHOLOGY, [address] [place] [address] Kel Owen M.D. Director [facility] # [id number] 12 Because ethnic data is not always readily [...] 15-29 5 Kidney failure <15 (or dialysis) 13 Reference Range and Interpretation: TnI (ng/mL) Interpretation Less Than 0.06 ng/mL Not supportive of diagnosis of VA 0.06 - 0.50 ng/mL Indeterminate: suggest serial studies if clinically indicated. Greater than 0.5 ng/mL Consistent with diagnosis of VA 14 Because ethnic data is not always readily [...] 15-29 5 Kidney failure <15 (or dialysis) 15 Because ethnic data is not always readily [...] 15-29 5 Kidney failure <15 (or dialysis) 16 Because ethnic data is not always readily [...] 15-29 5 Kidney failure <15 (or dialysis) 17 HDL Interpretation: Undesirable: High Risk: Less than 40 mg/dL Desirable: Low Risk: Greater than 60 mg/dL 18 LDL Interpretation: Low Risk Optimal Level: LDL Less than 100 mg/dL Near or Above Optimal: LDL 100-129 mg/dL Borderline High Risk: LDL 130-159 mg/dL High Risk: LDL 160-189 mg/dL Very High Risk: LDL Greater than 189 mg/dL 19 Therapeutic target for the treatment of diabetes Mellitus patients is <7% HBA1C, and in selective patients <6.0%.Please refer to [place] [employer] Diabetic care guidelines for further information. 20 THERAPEUTIC TARGET FOR THE TREATMENT OF DIABETES MELLITUS PATIENTS IS <7% HBA1C, AND IN SELECTIVE PATIENTS <6.0%. PLEASE REFER TO [place] [employer] DIABETIC CARE GUIDELINES FOR FURTHER INFORMATION. 21 CHOLESTEROL INTERPRETATION: Desirable: Less than 200 [...] Risk: LDL Greater than 189 MG/DL 24 Anion gap measurement may be of limited value in the presence of any alkalosis, especially in a combined acid base disorder. . 25 A metabolite of Naproxen, O-desmethylnaproxen, has been shown to interfere with the Jendrassik-Bruneau method for measuring total bilirubin. Samples from patients who have taken Naproxen have shown spurious elevation in total bilirubin levels. 26 Because ethnic data is not always readily [...] 15-29 5 Kidney failure <15 (or dialysis) 27 Anion gap measurement may be of limited value in the presence of any alkalosis, especially in a combined acid base disorder. . 28 A metabolite of Naproxen, O-desmethylnaproxen, has been shown to interfere with the Jendrassik-Kd method for measuring total bilirubin. Samples from patients who have taken Naproxen have shown spurious elevation in total bilirubin levels. 29 Because ethnic data is not always readily [...] 15-29 5 Kidney failure <15 (or dialysis) 30 CHOLESTEROL INTERPRETATION: Desirable: Less than 200 MG/DL Borderline-High Risk: 200-239 MG/DL High-Risk: 240 MG/DL and over 31 HDL INTERPRETATION: Undesirable: High Risk: Less than 40 MG/DL Desirable: Low Risk: Greater than 60 MG/DL 32 LDL INTERPRETATION: Low Risk Optimal Level: LDL Less than 100 MG/DL Near or Above Optimal: LDL 100-129 MG/DL Borderline High Risk: LDL 130-159 MG/DL High Risk: LDL 160-189 MG/DL Very High Risk: LDL Greater than 189 MG/DL 33 THERAPEUTIC TARGET FOR THE TREATMENT OF DIABETES MELLITUS PATIENTS IS <7% HBA1C, AND IN SELECTIVE PATIENTS <6.0%. PLEASE REFER TO [place] [employer] DIABETIC CARE GUIDELINES FOR FURTHER INFORMATION. 34 FASTING 35 Anion gap measurement may be of limited value in the presence of any alkalosis, especially in a combined acid base disorder. . Procedures Date CPT Code Description Status 09/21/2017 60237 TKR Total Knee Replacement Completed 09/21/2017 22610 TKR Total Knee Replacement Completed 09/18/2017 20689 EKG Tracing & Interpretation Completed 08/09/2017 35357 Holter Monitor Review (24 hr)dr michaels & blaine Completed only 08/08/2017 10730 ECG Monitor/Recording W/Visual Superimposition Scanning Completed 07/13/2017 20891 EKG Tracing & Interpretation Completed 05/22/2017 74687 Inject/Drain Joint/Bursa Major Completed 03/01/2017 93414 Inject/Drain Joint/Bursa Major Completed 11/03/2016 68944 Arthroscopy,Knee,Meniscectomy Media & Lateral Completed 11/03/2016 88819 Arthroscopy,Knee,Meniscectomy Media & Lateral Completed 11/01/2016 97327 EKG Tracing & Interpretation Completed 09/26/2016 85000 Inject/Drain Joint/Bursa Major Completed 05/16/2016 91677 EKG Tracing & Interpretation Completed 04/29/2015 05792 EKG Tracing & Interpretation Completed 05/29/2014 92105 EKG Tracing & Interpretation Completed 01/15/2014 82644 ECHO Stress Test Incl Perf Contiuous ekg Monitoring Completed W/Phys Superv 11/26/2013 12450 Holter Monitoring 24 HR New Completed 11/08/2013 97732 ECHO Transthoracic, Real-Time 2D With Doppler And Color Completed Flow 10/24/2013 32434 Rad Shoulder Comp, Min. 2 Views Completed 10/24/2013 06644 Rad Shoulder Comp, Min. 2 Views Completed 10/22/2013 25878 EKG Tracing & Interpretation Completed 07/18/2013 05573 Rad Shoulder Comp, Min. 2 Views Completed 06/17/2013 87192 EKG Tracing & Interpretation Completed 01/31/2013 27299 Rad Shoulder Comp, Min. 2 Views Completed 01/18/2013 51680 Arthroplasty,Total Shoulder Replacement (TSR) Completed 01/03/2013 39852 EKG, Interpretation Only Completed 12/12/2012 84403 EKG Tracing & Interpretation Completed 11/27/201264529 Inject/Drain Joint/Bursa Major Completed 11/27/201221867 Inject/Drain Joint/Bursa Major Completed 02/09/2012 67258 EKG Tracing & Interpretation Completed 01/25/2012 88194 Nerve Conduction, Sensory Completed 01/25/2012 42571 Nerve Conduction, Motor W/O F-Wave Study Completed 09/19/2011 66741 ECHO Stress Test Incl Perf Contiuous ekg Monitoring Completed W/Phys Superv 09/15/2011 90872 EKG Tracing & Interpretation Completed 09/08/2011 69369 Rad Shoulder Comp, Min. 2 Views Completed 09/08/2011 55349 Rad Shoulder Comp, Min. 2 Views Completed 01/27/2011 16812 EKG Tracing & Interpretation Completed 01/22/2010 53600 EKG Tracing & Interpretation Completed 11/30/2009 02177 Mobile Cardiovascular Telemetry Over 24 HR Up To 30 Completed Days 10/23/2009 18860 Mobile Cardiovascular Telemetry Over 24 HR Up To 30 Completed Days 10/14/2009 11189 ECHO Stress Test Incl Perf Contiuous ekg Monitoring Completed W/Phys Superv 10/08/2009 04467 Holter Monitor Interpretation Completed 10/02/2009 71065 EKG Tracing & Interpretation Completed 06/25/2009 61235 Stress ECHO Interpretation/Report Hospital Completed 06/25/2009 76506 Treadmill Interp/Report Only Completed 06/25/2009 04162 Stress Test Supervsn W/Out I/R Completed 06/18/2009 91421 Treadmill Interp/Report Only Completed 06/18/2009 67355 Stress Test Supervsn W/Out I/R Completed 05/25/2009 65134 EKG Tracing & Interpretation Completed 07/02/2008 57095 EKG Tracing & Interpretation Completed 07/02/2008 63439 EKG Tracing & Interpretation Completed 09/20/2007 94581 EKG Tracing & Interpretation Completed 03/14/2007 74933 EKG Tracing & Interpretation Completed 12/06/2006 17492 EKG Tracing & Interpretation Completed 12/06/2006 79197 EKG Tracing & Interpretation Completed 11/14/2006 00734 EKG Tracing & Interpretation Completed 11/14/2006 03640 EKG Tracing & Interpretation Completed 06/28/2006 70456 EKG Tracing & Interpretation Completed 08/25/2005 06090 EKG Tracing & Interpretation Completed 12/08/2004 71581 EKG Tracing & Interpretation Completed 09/02/2003 87745 EKG Tracing & Interpretation Completed 08/26/2003 18140 Color Doppler Completed 08/26/2003 10772 Pulse Doppler & Continuous Wave Completed 08/26/2003 92548 Echocardiogram Completed Encounters Type Date Location Provider CPT E/M Dx Office Visit 09/23/2017 [facility], Clark Hood M.D. 43021 I10 2:42p Hospitalists G47.33 E11.9 Z96.651 Office Visit 09/22/2017 2:38p [facility], Angelique Russell 32294 I10 Hospitalists Jennifer G47.33 E11.9 Z96.651 Office Visit 09/21/2017 2:37p [facility], Angelique Russell 28036 I10 Hospitalists MKeith G47.33 E11.9 Z96.651 Office Visit 09/18/2017 3:40p [facility] [address], 39653 I45.10 Shreyas Rodriguez R94.31 Z01.818 I10 I71.2 I42.9 Office Visit 09/04/2017 2:45p [facility] M.D. 41469 M16.12 C.M.A. M25.552 Office Visit 07/24/2017 8:30a [facility] M.D. 21295 M25.561 C.M.A. M25.461 M17.11 Office Visit 07/13/2017 11:00a [facility] [address], 955[address] I10 Quality Assurance Supervisor MKeith I71.2 R00.1 E11.9 R42 I42.9 R94.31 Office Visit 05/22/2017 9:30a [facility] M.D. 94332 M25.561 C.M.A. M25.461 M17.11 Office Visit 03/10/2017 11:00a [facility] M.D. 18766 M25.561 C.M.A. M25.461 M17.11 S83.241D Office Visit 03/01/2017 12:00p [facility] M.D. 70553 M25.561 C.M.A. M25.461 M17.11 Office Visit 11/01/2016 1:40p [facility] [address] [place], 61613 M25.561 MKeith I10 I71.2 R00.1 E66.9 I45.10 Z01.810 Office Visit 10/07/2016 1:00p [facility] M.D. 33287 M25.561 C.M.A. M25.461 M17.11 S83.241D Office Visit 10/03/2016 9:15a [facility] M.D. 80516 M25.561 C.M.A. M25.461 M17.11 Office Visit 09/26/2016 1:00p [facility] M.D. 19557 M25.561 C.M.A. M25.461 M17.11 Office Visit 2016 8:30a [facility] JAY Gordon 94417 E66.9 I10 I71.2 Office Visit 06/15/2016 8:30a [facility] JAY Gordon 47739 I10 E66.9 I71.2 Office Visit 05/16/2016 9:00a [facility] [address] M.D. 76345 I71.2 I10 E66.9 R00.1 E78.00 Office Visit 04/29/2015 9:00a [facility] [address] M.D. 97455 I49.5 I71.2 I10 E66.9 Office Visit 05/29/2014 10:00a [facility] [address] M.D. 64987 368.2 427.81 441.2 428.32 401.1 Office Visit 01/15/2014 1:30p [facility] [address] [address] 786.59 M.D. 368.2 427.81 Office Visit 12/31/2013 8:00a [facility] M.D. 91009 718.81 C.M.A. Office Visit 10/31/2013 1:30p [facility] Cole M.D. 41691 719.41 C.M.A. Office Visit 10/24/2013 9:00a [facility] Nathalia Galan 73855 719.41 C.M.A. RPA-C Office Visit 10/22/2013 9:00a [facility] [address], [address]19 401.1 M.D. 441.2 427.81 Office Visit 07/18/2013 11:30a [facility] M.D. 66139 716.91 C.M.A. Office Visit 06/17/2013 3:20p [facility] [address] [address] 441.2 M.D. 401.1 427.81 786.59 Office Visit 05/21/2013 9:00a [facility] M.D. 31011 716.81 C.M.A. Office Visit 12/12/2012 9:20a [facility] [address] [address] 716.81 M.D. 441.2 428.32 794.31 401.1 427.81 327.26 Office Visit 11/27/2012 9:15a [facility] M.D. 89928 716.81 C.M.A. 716.91 716.91 719.41 Office Visit 02/09/2012 9:00a [facility] [address] M.D. 44488 354.0 272.0 786.50 441.2 Office Visit 01/25/2012 3:00p [facility] Bart DarrenEmma Daryl, 45943 354.0 Marques Baker M.D. Office Visit 09/15/2011 2:40p [facility] [address] 427.81 428.32 441.2 794.31 Office Visit 09/08/2011 9:00a [facility] M.D. 83848 716.91 C.M.A. Office Visit 01/27/2011 2:40p [facility] [address] [address] 786.50 M.DEmma 272.0 401.1 427.81 Office Visit 01/22/2010 3:00p [facility] [address] [address] 427.81 M.DEmma 786.50 272.0 401.1 Office Visit 10/14/2009 9:30a [facility] [address] [address]358 786.50 M.DEmma 272.0 401.1 428.32 278.01 427.81 Office Visit 10/02/2009 1:40p [facility] [address] [address]273 786.50 M.DEmma 272.0 401.1 428.32 278.01 782.3 Office Visit 05/25/2009 9:30a [facility] [address] M.D. 30670 272.0 401.1 428.32 278.01 427.81 441.2 Office Visit 07/02/2008 3:20p [facility] [address] [address] 786.50 M.DEmma 272.0 401.1 428.32 Office Visit 09/20/2007 9:20a [facility] [address] [address] 786.50 M.DEmma 272.0 401.1 428.32 278.01 Office Visit 03/14/2007 8:40a [facility] [address], [address]241 786.50 M.D. 272.0 401.1 428.32 278.01 Office Visit 12/06/2006 2:40p [facility] [address], [address] 427.81 M.D. 401.1 272.0 Office Visit 11/14/2006 3:20p [facility] [address] M.D. 46656 780.4 427.81 401.1 Office Visit 08/30/2006 11:00a [facility] [address], [address] 786.50 M.D. 401.1 278.01 Office Visit 06/28/2006 3:40p [facility] [address], [address]3239 428.32 M.D. 786.50 401.1 272.0 Office Visit 08/25/2005 10:20a [facility] [address] [address] 428.32 M.D. 401.1 278.01 Office Visit 12/08/2004 10:40a [facility] [address], 03593 786.50 M.D. 278.01 401.1 Office Visit 12/10/2003 9:00a [facility] [address] M.D. 53490 272.0 786.59 401.1 V58.69 Office Visit 10/09/2003 2:20p [facility] [address] M.D. 96090 428.0 786.59 Office Visit 09/02/2003 1:40p [facility] [address] M.D. 19737 428.0 786.50 272.0 780.7 Plan of Care Future Appointment(s):12/11/2017 8:45 am - [facility] M[facility] at [facility]10/30/2017 - Tamela Bailey M.D.M25.561 Pain in right kneeFollow up:Follow up: 6 rfsqdA89.651 Presence of right artificial knee [id number] Aftercare following joint replacement surgery
--- NOTE | 2017-11-11 09:13 | UC ---
UC General HPI - HPI Summary HPI Summary: pt had a large sliver from ply board about 7-10 days ago. he removed it but now the area is a little pink and mildly swollen. no limted rom or FB sensation. no pain. tetanus is less than 10 years ago. BS stable and no fever or joint pain - History of Current Complaint Hx Obtained From: Patient Onset/Duration: Gradual Onset Timing: Constant Aggravating: nothing Alleviating: nothing Associated Signs & Symptoms: Negative: Fever <Karyn Payne - Last Filed: 11/11/17 17:38> <Yuni Amaya - Last Filed: 11/12/17 08:17> - History of Current Complaint Stated Complaint: SKIN COMPLAINT Time Seen by Provider: 11/11/17 08:52 - Allergy/Home Medications Allergies/Adverse Reactions: Allergies Allergy/AdvReac Type Severity Reaction Status Date / Time hydrocodone Allergy Unknown skin Verified 11/11/17 09:10 blisters, perspiration oxycodone Allergy Unknown perspiration, Verified 11/11/17 08:54 skin blisters niacin Allergy Unknown Verified 11/11/17 08:53 Reaction Details sertraline Allergy DOUBLE Verified 11/11/17 08:53 VISION BEE STINGS Allergy Severe Swelling Uncoded 11/11/17 08:53 TRAZADONE Allergy Unknown Unknown Uncoded 11/11/17 08:53 Reaction Details PMH/Surg Hx/FS Hx/Imm Hx Endocrine History: Diabetes, Thyroid Disease, Dyslipidemia Cardiovascular History: Hypertension GI/ History: Gastroesophageal Reflux - Surgical History Surgical History: Yes Surgery Procedure, Year, and Place: CARDIAC CATH X 2 - NO STENT LATE TO DERECK , ALSO IN 1999. abdominal hernia 1979. RIGHT SHOULDER Surgeries then REPLACEMNT 12/2012 AND LEFT SHOULDER - RCT. 2 TOTAL SURGERIES LEFT SHOULDER 3 FOR THE RIGHT. RIGHT CARPAL TUNNEL - Family History Known Family History: Positive: Cardiac Disease, Hypertension, Diabetes - Social History Occupation: Retired Lives: With Family Alcohol Use: Rare Alcohol Amount: 1 GLASS WINE NO MORE THAN ONCE MONTH Substance Use Type: None Smoking Status (MU): Light Every Day Tobacco Smoker Type: Smokeless Tobacco Amount Used/How Often: DOES NOT SMOKE CIGG, CHEWS TOBACCO DAILY FOR PAST 55+ YRS Length of Time of Smoking/Using Tobacco: 48 yrs Have You Smoked in the Last Year: Yes When Did the Patient Quit Smoking/Using Tobacco: quit smoking in the 1970s Household Exposure Type: Cigarettes - Immunization History Most Recent Influenza Vaccination: fall 2016 Most Recent Tetanus Shot: UTD Most Recent Pneumonia Vaccination: 2014 <Karyn Payne - Last Filed: 11/11/17 17:38> Review of Systems Constitutional: Negative Skin: Rash - back R hand with mild swelling Eyes: Negative ENT: Negative Respiratory: Negative Cardiovascular: Negative Gastrointestinal: Negative Genitourinary: Negative Motor: Negative Neurovascular: Negative Musculoskeletal: Negative Neurological: Negative Psychological: Negative Is Patient Immunocompromised?: No All Other Systems Reviewed And Are Negative: No <Karyn Payne - Last Filed: 11/11/17 17:38> Physical Exam Triage Information Reviewed: Yes Appearance: Well-Appearing Vital Signs Reviewed: Yes Eyes: Positive: Conjunctiva Clear ENT: Positive: Normal ENT inspection Neck: Positive: Supple, Nontender, No Lymphadenopathy Respiratory: Positive: Lungs clear, Normal breath sounds Cardiovascular: Positive: RRR, No Murmur Abdomen Description: Positive: Nontender, No Organomegaly, Soft Bowel Sounds: Positive: Present Musculoskeletal: Positive: Other: - R hand: mild swelling and skin pink over dorsal 3rd mcp. scab over area. non tender, not warm or fluctuant. hand has full s/v/m function and no streaking. Neurological: Positive: Alert Psychological: Positive: Age Appropriate Behavior Skin Exam: Normal <Karyn Payne - Last Filed: 11/11/17 17:38> Vital Signs: Initial Vital Signs Temp 97.8 F 11/11/17 09:21 Pulse 57 11/11/17 09:21 Resp 17 11/11/17 09:21 BP 140/80 11/11/17 09:21 Pulse Ox 100 11/11/17 09:21 <Yuni Amaya - Last Filed: 11/12/17 08:17> Diagnostics - Radiology No standard instances Xray Interpretation: No Acute Changes Radiology Interpretation Completed By: Radiologist - see report <Karyn Payne - Last Filed: 11/11/17 17:38> Course/Dx - Course Course Of Treatment: no concern for septic joint. no FB or gas on xray. will cover for infection. since pw with wood, will tx with augmentin. hx htn, tx - Differential Dx - Multi-Symptom Provider Diagnoses: PW R dorsal hand. skin infection R dorsal hand <Karyn Payne - Last Filed: 11/11/17 17:38> Discharge - Sign-Out/Discharge Documenting (check all that apply): Discharge/Admit/Transfer - Billing Disposition and Condition Condition: STABLE Disposition: HOME <Karyn Payne - Last Filed: 11/11/17 17:38> - Billing Disposition and Condition Condition: STABLE Disposition: HOME <Yuni Amaya - Last Filed: 11/12/17 08:17> - Discharge Plan Condition: Stable Disposition: HOME Prescriptions: Amoxicillin/Clavulanate TAB* [Augmentin TAB 875*] 875 mg PO BID #20 tab Patient Education Materials: Puncture Wound (DC), Cellulitis (DC) Referrals: Aba Avitia MD [Primary Care Provider] - 2 Days Attestation Statement User Type: Provider - I was available for consult. This patient was seen by the [facility]. The patient was not presented to, seen by, or examined by me. -Ljj <Yuni Amaya - Last Filed: 11/12/17 08:17> Addendum entered and electronically signed by Karyn Payne PA 11/11/17 17:38 :
[2017-11-11 09:24] VITALS: BP 140/80
--- NOTE | 2017-11-11 09:33 | RAD ---
HISTORY: Penetrating trauma third MCP joint, rule out foreign body COMPARISONS: None VIEWS: 4, Frontal, lateral, and oblique views of the right hand FINDINGS: BONE DENSITY: Normal. BONES: There is no displaced fracture. JOINTS: There is osteoarthritis of the first CMC joint and to a lesser extent of the interphalangeal joints. ALIGNMENT: There is no dislocation. SOFT TISSUES: There is minimal dystrophic calcification along the ulnar aspect of the second DIP joint. OTHER FINDINGS: There is no appreciable radiographic foreign body. IMPRESSION: OSTEOARTHRITIS. NO RADIOPAQUE FOREIGN BODY. NO ACUTE OSSEOUS INJURY. IF SYMPTOMS PERSIST, RECOMMEND REPEAT IMAGING.
== END 2017-11-11 09:45 | disposition home or self-care (01) ==
LOC: UCCORT 08:41
DX: S61.431A Puncture wound without foreign body of right hand, initial encounter (principal); L08.9 Local infection of the skin and subcutaneous tissue, unspecified; W45.8XXA Other foreign body or object entering through skin, initial encounter; Y92.9 Unspecified place or not applicable; M19.041 Primary osteoarthritis, right hand; F17.290 Nicotine dependence, other tobacco product, uncomplicated; Z88.5 Allergy status to narcotic agent; Z88.8 Allergy status to other drugs, medicaments and biological substances
CPT/HCPCS: 99212; G0463

== ENCOUNTER 2018-12-25 20:54 | Emergency (ER) | payer MEDICARE, OTHER ==
[2018-12-25 21:55] VITALS: BP 146/72
--- NOTE | 2018-12-25 22:24 | UC ---
Hand/Wrist HPI - HPI Summary HPI Summary: per groover operator: "complaints of pain and swelling in right wrist, for past 10 days , denies any trauma/injury. Limited rom." Denies any trauma. has had injurioes many years ago. no fevers or chills. no red streaks. has DM. last a1c 7.8% he reports. today's FBS 161. has had gout in past in toes. doesnt take any gout meds - History Of Current Complaint Chief Complaint: UCUpperExtremity Stated Complaint: RT WRIST COMPLAINT Time Seen by Provider: 12/25/18 22:23 Pain Intensity: 5 - Allergies/Home Medications Allergies/Adverse Reactions: Allergies Allergy/AdvReac Type Severity Reaction Status Date / Time hydrocodone Allergy Unknown skin Verified 12/25/18 21:56 blisters, perspiration oxycodone Allergy Unknown perspiration, Verified 12/25/18 21:56 skin blisters niacin Allergy Unknown Verified 12/25/18 21:56 Reaction Details sertraline Allergy DOUBLE Verified 12/25/18 21:56 VISION BEE STINGS Allergy Severe Swelling Uncoded 12/25/18 21:56 TRAZADONE Allergy Unknown Unknown Uncoded 12/25/18 21:56 Reaction Details Home Medications: Home Medications Ascorbic Acid TAB* [Vitamin C TAB*] 500 mg PO DAILY 12/25/18 [History Confirmed 12/25/18] Aspirin 81 mg CHEW TAB* 81 mg PO DAILY 12/25/18 [History Confirmed 12/25/18] diphenhydrAMINE HCl [Benadryl Allergy 25 MG CAP] 25 mg PO BEDTIME 12/25/18 [ History Confirmed 12/25/18] PMH/Surg Hx/FS Hx/Imm Hx Previously Healthy: Yes Endocrine History: Diabetes, Thyroid Disease Cardiovascular History: Hypertension - Surgical History Surgical History: Yes Surgery Procedure, Year, and Place: CARDIAC CATH X 2 - NO STENT LATE S TO EARLY S, ALSO IN 2000. abdominal hernia 1979. 3 RIGHT SHOULDER Surgeries then REPLACEMNT 12/2012 AND LEFT SHOULDER - RCT. RIGHT CARPAL TUNNEL - Family History Known Family History: Positive: Cardiac Disease, Hypertension, Diabetes - Social History Alcohol Use: Rare Alcohol Amount: 1 GLASS WINE NO MORE THAN ONCE MONTH Substance Use Type: None Smoking Status (MU): Light Every Day Tobacco Smoker Type: Smokeless Tobacco Amount Used/How Often: DOES NOT SMOKE CIGG, CHEWS TOBACCO DAILY FOR PAST 55+ YRS Length of Time of Smoking/Using Tobacco: 48 yrs Have You Smoked in the Last Year: Yes When Did the Patient Quit Smoking/Using Tobacco: quit smoking in the 1970s Household Exposure Type: Cigarettes - Immunization History Most Recent Influenza Vaccination: fall 2016 Most Recent Tetanus Shot: UTD Most Recent Pneumonia Vaccination: 2014 Review of Systems All Other Systems Reviewed And Are Negative: Yes Constitutional: Positive: Negative Skin: Positive: Other Eyes: Positive: Negative ENT: Positive: Negative Respiratory: Positive: Negative Cardiovascular: Positive: Negative Gastrointestinal: Positive: Negative Motor: Positive: Decreased ROM - right wrist Musculoskeletal: Positive: Arthralgia Neurological: Positive: Negative Psychological: Positive: Negative Is Patient Immunocompromised?: No Physical Exam Triage Information Reviewed: Yes Appearance: Well-Appearing, No Pain Distress, Well-Nourished - very pleasant Vital Signs: Initial Vital Signs Temp 98.4 F 12/25/18 21:52 Pulse 55 12/25/18 21:52 Resp 18 12/25/18 21:52 BP 146/72 12/25/18 21:52 Pulse Ox 100 12/25/18 21:52 Eye Exam: Normal ENT Exam: Normal Neck exam: Normal Respiratory Exam: Normal Respiratory: Positive: Lungs clear, Normal breath sounds Cardiovascular Exam: Normal Cardiovascular: Positive: RRR Abdominal Exam: Normal Abdomen Description: Positive: Nontender, Soft Musculoskeletal: Positive: Other: - right wrist red, hot, swollen & tender. FROM. CR brisk. + 2 radial right, sensation intact. CR brisk. Neurological Exam: Normal Psychological Exam: Normal Skin Exam: Normal Hand/Wrist Course/Dx - Course Course Of Treatment: onset was slow and gradual. no trauma. no e/o infection. no spider bites or skin breakdown. exam is red, hot, swollen tender. denies kidney disease. [facility]0 range 2018. -colcrys 0.6 mgs, take 2 initially and then take 3rd tablet 1 hr later. 3 tabs MDD for each outbreak (do not restart again for 3 days). - Differential Dx/Diagnosis Differential Diagnosis/HQI/PQRI: Gout, Infection Provider Diagnosis: Gout Discharge - Sign-Out/Discharge Documenting (check all that apply): Patient Departure All imaging exams completed and their final reports reviewed: No Studies - Discharge Plan Condition: Stable Disposition: HOME Prescriptions: Colchicine* [Colcrys*] 0.6 mg PO DAILY 1 Days #3 tab Patient Education Materials: Gout (ED) Referrals: Aba Avitia MD [Primary Care Provider] - Additional Instructions: Make sure to follow up with your PCP. He can talk to you about further gout management/prevention if needed. You should avoid foods that can trigger gout as listed above. You should be evaluated sooner if symptoms worsen or persist including an xray - Billing Disposition and Condition Condition: STABLE Disposition: Home
== END 2018-12-25 22:47 | disposition home or self-care (01) ==
LOC: UCCORT 20:54
DX: M10.9 Gout, unspecified (principal); E11.9 Type 2 diabetes mellitus without complications; I10 Essential (primary) hypertension; F17.210 Nicotine dependence, cigarettes, uncomplicated
CPT/HCPCS: 99212; G0463

== ENCOUNTER 2023-07-31 09:00 | Observation (INO) ==
[~2023-07-31 09:00] MED LIST changes: -Acetaminophen IV 1GM/100ML * 1,000 MG/100 ML VIAL IVPB ONE; -Buffered Lidocaine 0.9% SYRIN* 5 ML/SYR SYRINGE INTRADERM ONE; -Dexamethasone IV* 4 MG/ML 1 ML (4 MG) IV SLOW PU ONE; -Gabapentin CAP(*) 300 MG PO ONE; +Naloxone 0.4 mg VIAL 0.4 mg/ml 1 ml VIAL IV PRN; +Ondansetron 4 mg VIAL 2 MG/ML 2 ml VIAL IV PRN
[2023-07-31] MEDS ORDERED: Chlorhexidine MOUTHWASH 0.12% 15 ML UDC ONE (09:16)
[2023-07-31] MEDS ORDERED: ceFAZolin 2 GM PREMIX 2 GM/50 ML BAG ONE (09:33)
[2023-07-31] MEDS ORDERED: Buffered Lidocaine 1% SYRIN 1 ml ONE (09:33)
[2023-07-31 09:42] LABS: Rapid COVID-19 Molecular Undetected (Undetected)
[2023-07-31] MEDS ORDERED: Lidocaine 2% PF 5 ML VIAL ONE (10:20)
[2023-07-31] MEDS ORDERED: Dexamethasone IV 4 MG/ML VIAL 1 ml VIAL ONE (10:20)
[2023-07-31] MEDS ORDERED: Propofol 10 MG/ML 20 ML BTL ONE (10:20)
[2023-07-31] MEDS ORDERED: Rocuronium 50 mg VIAL 10 mg/ml 5 ml VIAL (50 mg) ONE ×3 (10:20→13:10)
[2023-07-31] MEDS ORDERED: Ondansetron 4 mg VIAL 2 MG/ML 2 ml VIAL ONE (10:20)
[2023-07-31] MEDS ORDERED: fentaNYL 100 mcg/2 ml 50 MCG/ML VIAL ONE ×3 (10:22→15:00)
[2023-07-31] MEDS ORDERED: Thrombin 5,000 UNITS(BOVINE) for Ultrasound Guided Pseudoaneursym ONE (12:46)
[2023-07-31] MEDS ORDERED: Acetaminophen IV 1 GM/100ML 1,000 MG/100 ML BAG IV ONE (13:27)
[2023-07-31] MEDS ORDERED: Senna TAB 8.6 mg TAB PO PRN (14:17)
[2023-07-31] MEDS ORDERED: Phenol 1.4% Throat Spray BTL MT PRN (14:17)
[2023-07-31] MEDS ORDERED: Calcium Carb (TUMS) 500 mg CHEW TAB PO PRN (14:17)
[2023-07-31] MEDS ORDERED: Ondansetron 4 mg VIAL 2 MG/ML 2 ml VIAL IV PRN (14:17)
[2023-07-31] MEDS ORDERED: Dextran 70/Hypromellose Tears Eye Drops 15 ml BTL (for Artificials Tears) BOTH EYES PRN (14:17)
[2023-07-31] MEDS ORDERED: Benzocaine/Menthol LOZ MT PRN (14:17)
[2023-07-31] MEDS: fentaNYL 100 mcg/2 ml 50 MCG/ML VIAL IV PRN (15:01)
[2023-07-31] MEDS: Buffered Lidocaine 1% SYRIN 1 ml INTRADERM ONE (20:30)
[2023-07-31] MEDS: Lactated Ringers 1000 ml BAG 1,000 ML IV SCH ×2 (20:37→22:27)
[2023-07-31] MEDS: Insulin GLARGINE 100 un/ml 10 ml VIAL SUBCUT SCH (21:35)
[2023-08-02 14:21] VITALS: BP 120/60
== END 2023-08-02 16:00 | disposition home or self-care (01) ==
LOC: SSU 09:00 → OR 09:00
PROVIDERS: ADMIT Physician Assistant; ATTEND Neurological Surgery